=== PATIENT | female | born 1970 | race Caucasian/White ===

== ENCOUNTER 2016-08-04 23:25 | Inpatient (IN) | payer BC ==
[2016-08-05] MEDS ORDERED: NS 0.9% 1000 ML* 1,000 ML IV ONE (00:11)
[2016-08-05] MEDS ORDERED: Ondansetron INJ* 2 MG/ML VIAL IV ONE ×2 (00:11→03:07)
[2016-08-05] MEDS ORDERED: fentaNYL* 50 MCG/ML 2 ML VIAL (100 MCG VIAL) IV SLOW PU ONE ×3 (00:12→03:11)
[2016-08-05 00:50] LABS: Hematocrit 45 % (35-47); Hemoglobin 14.5 g/dl (12.0-16.0); Mean Corpuscular HGB Conc 32 g/dl (31-36); Mean Corpuscular Hemoglobin 26 pg (27-31); Mean Corpuscular Volume 80 fL (80-97); Mean Platelet Volume 7 um3 (7.4-10.4); Red Blood Count 5.64 10^6/ul (4.0-5.4); Red Cell Distribution Width 14 % (10.5-15); White Blood Count 14.4 10^3/ul (3.5-10.8)
[2016-08-05 01:07] LABS: Albumin 3.6 g/dL (3.2-5.2); C Reactive Protein 13.37 mg/L (< 5.00); Calcium 9.7 mg/dL (8.6-10.3); EGFR African American 148.6 (>60); EGFR Non-African American 115.5 (>60); Globulin 3.3 g/dL (2-4); Potassium 3.6 mmol/L (3.5-5.0); Total Bilirubin 0.4 mg/dL (0.2-1.0); Total Protein 6.9 g/dL (6.4-8.9)
[2016-08-05] MEDS ORDERED: Ondansetron INJ* 2 MG/ML VIAL ONE (03:10)
--- NOTE | 2016-08-05 03:25 | ED ---
Bhavin Peres Alok, scribed for Maddy Skinner MD on 08/04/16 at 2355 . Abdominal Pain/Female - HPI Summary HPI Summary: 46F presents to the ED with diffuse abd pain and diarrhea since 1800 this evening. Pt states she has been having this abd pain on and off for the last few weeks usually lasting about a day at a time, though not with as much severity as tonight. Pt describes her abd pain as a cramping. Pt states she has been having diarrhea at least once every hour this evening. Pt has been taking ibuprofen which usually alleviates her pain but was ineffective tonight. Pt denies fever. Pt denies recent antibiotic use. PMHx includes type II DM. Pt states her sugar levels have been normal. - History of Current Complaint Chief Complaint: EDAbdPain Stated Complaint: ABD PAIN Time Seen by Provider: 08/04/16 23:52 Hx Obtained From: Patient Onset/Duration: Lasting Weeks, Still Present Timing: Intermittent Episode Lasting Severity Initially: Moderate Severity Currently: Moderate Pain Intensity: 8 Pain Scale Used: 0-10 Numeric Location: Diffuse Character: Cramping Aggravating Factor(s): Nothing Alleviating Factor(s): Nothing Associated Signs and Symptoms: Positive: Diarrhea. Negative: Fever Allergies/Adverse Reactions: Allergies Allergy/AdvReac Type Severity Reaction Status Date / Time Acetaminophen [From Percocet] Allergy Itching Verified 08/04/16 23:28 Morphine Allergy Rash Verified 08/04/16 23:28 Oxycodone [From Percocet] Allergy Itching Verified 08/04/16 23:28 PMH/Surg Hx/FS Hx/Imm Hx Endocrine/Hematology History: Reports: Hx Diabetes - Cancer History Hx Chemotherapy: No Hx Radiation Therapy: No Infectious Disease History: No Infectious Disease History: Denies: Traveled Outside the [place] in Last 30 Days - Family History Known Family History: Positive: Other - Yes- Breast CA (sister) - Social History Occupation: Employed Full-time Lives: With Family Alcohol Use: None Hx Substance Use: No Hx Tobacco Use: No Smoking Status (MU): Never Smoked Tobacco Review of Systems Negative: Fever Positive: Abdominal Pain, Diarrhea All Other Systems Reviewed And Are Negative: Yes Physical Exam Triage Information Reviewed: Yes Vital Signs On Initial Exam: Initial Vitals Temp Pulse Resp BP Pulse Ox 97.4 F 100 18 154/87 100 08/04/16 23:28 08/04/16 23:28 08/04/16 23:28 08/04/16 23:28 08/04/16 23:28 Vital Signs Reviewed: Yes Appearance: Positive: Well-Appearing, No Pain Distress Skin: Positive: Warm, Skin Color Reflects Adequate Perfusion, Dry Eyes: Positive: EOMI, KLEBER ENT: Positive: Pharynx normal, TMs normal Neck: Positive: Supple, Nontender Respiratory/Lung Sounds: Positive: Clear to Auscultation, Breath Sounds Present. Negative: Rales, Rhonchi, Wheezes Cardiovascular: Positive: RRR, Other - no gallop. Negative: Murmur, Rub Abdomen Description: Positive: Soft, Other: - no rebound. Diffuse abd tenderness.. Negative: Distended, Guarding Bowel Sounds: Positive: Present Musculoskeletal: Positive: Strength/ROM Intact. Negative: Edema Left, Edema Right Neurological: Positive: Sensory/Motor Intact, Alert, Oriented to Person Place, Time, CN Intact II-III Psychiatric: Positive: Affect/Mood Appropriate Diagnostics - Vital Signs Vital Signs Temp Pulse Resp BP Pulse Ox 08/04/16 23:28 97.4 F 100 18 154/87 100 - Laboratory Lab Results: Lab Results 08/05/16 08/05/16 08/05/16 Range/Units 00:35 00:35 00:35 WBC 14.4 H (3.5-10.8) 10^3/ul RBC 5.64 H (4.0-5.4) 10^6/ul Hgb 14.5 (12.0-16.0) g/dl Hct 45 (35-47) % MCV 80 (80-97) fL MCH 26 L (27-31) pg MCHC 32 (31-36) g/dl RDW 14 (10.5-15) % Plt Count 380 (150-450) 10^3/ul MPV 7 L (7.4-10.4) um3 Neut % (Auto) 73.6 (38-83) % Lymph % (Auto) 18.4 L (25-47) % [place] % (Auto) 5.7 (1-9) % Eos % (Auto) 1.2 (0-6) % Baso % (Auto) 1.1 (0-2) % Absolute Neuts (auto) 10.6 H (1.5-7.7) 10^3/ul Absolute Lymphs (auto) 2.7 (1.0-4.8) 10^3/ul Absolute Monos (auto) 0.8 (0-0.8) 10^3/ul Absolute Eos (auto) 0.2 (0-0.6) 10^3/ul Absolute Basos (auto) 0.2 (0-0.2) 10^3/ul Absolute Nucleated RBC 0.01 10^3/ul Nucleated RBC % 0.1 Sodium 134 (133-145) mmol/L Potassium 3.6 (3.5-5.0) mmol/L Chloride 106 (101-111) mmol/L Carbon Dioxide 21 L (22-32) mmol/L Anion Gap 7 (2-11) mmol/L BUN 14 (6-24) mg/dL Creatinine 0.56 (0.51-0.95) mg/dL Est GFR ( Amer) 148.6 (>60) Est GFR (Non-Af Amer) 115.5 (>60) BUN/Creatinine Ratio 25.0 H (8-20) Glucose 334 H (70-100) mg/dL Lactic Acid 1.3 (0.5-2.0) mmol/L Calcium 9.7 (8.6-10.3) mg/dL Total Bilirubin 0.40 (0.2-1.0) mg/dL AST 12 L (13-39) U/L ALT 9 (7-52) U/L Alkaline Phosphatase 73 (34-104) U/L C-Reactive Protein 13.37 H (< 5.00) mg/L Total Protein 6.9 (6.4-8.9) g/dL Albumin 3.6 (3.2-5.2) g/dL Globulin 3.3 (2-4) g/dL Albumin/Globulin Ratio 1.1 (1-3) Lipase 28 (11.0-82.0) U/L Result Diagrams: 08/05/16 00:35 08/05/16 00:35 Lab Statement: Any lab studies that have been ordered have been reviewed, and results considered in the medical decision making process. Abdominal Pain Fem Course/Dx - Course Course Of Treatment: 46 yo female with diabetes who describes a few days of diffuse abd pain with nausea and profuse diarrhea, exam non focal, pain not well controlled in the ED and pt then vomited after getting 2 l of fluid and pain meds x2 decision was made to admit pt. Case discussed with Dr. Villarreal - Diagnoses Provider Diagnoses: Abdominal pain Discharge - Discharge Plan Condition: Stable Disposition: HOME The documentation as recorded by the Bhavin kwong Alok accurately reflects the service I personally performed and the decisions made by me, Maddy Skinner MD.
[2016-08-05] MEDS ORDERED: Al Hydrox/Mg Hydrox/Simet LIQ* 30 ML UDC PO PRN (03:31)
[2016-08-05] MEDS ORDERED: Dextrose 50% Syringe 50 ML* 25 GM/50 ML SYRINGE IV PUSH PRN ×2 (03:34→03:35)
[2016-08-05] MEDS ORDERED: PROCHLORPERAZINE INJ 5 MG/ML 2 ML VIAL IV PRN (03:34)
[2016-08-05] MEDS ORDERED: Insulin LISPRO* 1 UNITS UNIT SUBCUT ONE (03:35)
[2016-08-05 03:40] LABS: Urine Bacteria Absent (Absent); Urine Bilirubin Negative (Negative); Urine Glucose 3+(>=500 mg/dL) (Negative); Urine Nitrite Negative (Negative)
[2016-08-05] MEDS: NS 0.9% w/ 20 Meq KCL 1000 ML* 1,000 ML IV SCH ×3 (03:49→23:47)
[2016-08-05] MEDS: Heparin VIAL(*) 5000 UNITS/ML VIAL (FIVE THOUSAND) SUBCUT SCH ×3 (04:30→20:56)
[2016-08-05] MEDS: Acetaminophen TAB* 325 MG PO PRN ×5 (04:30→22:22)
[2016-08-05] MEDS ORDERED: Iodixanol* (CONTRAST) 320 MG/ML 100 ML SDV IV ONE (05:02)
--- NOTE | 2016-08-05 06:13 | HP ---
CC: María Perkins MD * HISTORY AND PHYSICAL: DATE OF ADMISSION: 08/05/16 TIME OF EVALUATION: 0300. PRIMARY CARE PHYSICIAN: María Perkins MD CHIEF COMPLAINT: Nausea, vomiting, diarrhea, and abdominal pain. HISTORY OF PRESENT ILLNESS: This is a 46-year-old female with a past medical history of diabetes, who presents to the emergency room with persistent nausea, vomiting, and diarrhea. The patient states she has had abdominal pain off and on for the past few weeks that last for about a day and then resolves on its own , waxes and wanes. It has no pattern to it. It does not seem to be associated with appetite or food. She does admit to a 10-pound weight loss over the past month. She has had nausea over the past month, but this evening was when the vomiting began. She had diarrhea last week that resolved and then again the diarrhea returned. She has had chills today. She feels slightly short of breath. No chest pain or rash. No URI illness. No recent travel. No recent antibiotic use. Otherwise, remainder of the review of systems is negative. In the emergency room, the patient had labs and had persisted vomiting despite antiemetics and was referred to the hospitalist service for further evaluation. PAST MEDICAL HISTORY: 1. Diabetes. 2. Vitamin D deficiency. MEDICATIONS: 1. Januvia. 2. Vitamin D. ALLERGIES: TYLENOL, MORPHINE, OXYCODONE. FAMILY HISTORY: No history of GI illness in her family. No history of IBD or colon cancer. SOCIAL HISTORY: The patient lives at home with her and 2 small children. No history of smoking, alcohol, or illicit drug use. Her healthcare proxy is her . She works as a dental social science research assistant. CODE STATUS: Full code. REVIEW OF SYSTEMS: A 12-point review of systems was reviewed and was as mentioned in the HPI. PHYSICAL EXAMINATION GENERAL: In no acute distress, resting comfortably. VITAL SIGNS: Temp is 97.4, pulse rate 66, respiratory rate 18, oxygen saturation 94% on room air, and blood pressure 129/81. HEENT: Pupils equal and reactive to light and anicteric. Head normocephalic. Oropharynx: Mucous membranes are dry. No erythema or exudate. NECK: Supple. No lymphadenopathy. RESPIRATORY: Clear to auscultation. No wheezes, rhonchi, or rales. CARDIAC: Regular rate and rhythm. No murmurs, rubs, or gallops. ABDOMEN: Hyperactive bowel sounds. Soft, mild distention, and diffuse tenderness. EXTREMITIES: No clubbing, cyanosis, or edema. +1 DPs. NEUROLOGIC: Alert and oriented x3. No focal neurologic deficits. LABORATORY DATA: White count 14.4, hemoglobin 14.5, hematocrit 45, platelets 380. Sodium 134, potassium 3.6, chloride 106, bicarb 21, BUN 14, creatinine 0.56 , glucose 334. Lactic acid 1.3. CRP is 13. Lipase is 28. AST 12, ALT 9, total bili is 0.4. ASSESSMENT AND PLAN: This is a 46-year-old female with a past medical history of diabetes, who presents with worsening abdominal pain with nausea, vomiting, and diarrhea. Nausea, vomiting, diarrhea, and abdominal pain. Assessment: It is concerning that this has been going on for the past month off and on with a 10-pound weight loss. I am concerned for underlying inflammatory bowel disease. Plan: We will admit her for observation for IV fluids, antiemetics. We will get a CAT scan of her abdomen and pelvis to rule out any other underlying etiology. Follow up on the stool culture that was obtained in the emergency room. Depending on her results of further workup, consider GI evaluation. CHRONIC MEDICAL PROBLEMS: 1. Diabetes. We will give her 6 units of lispro in the ER and place her on lispro sliding scale. Will check HgbA1c. 2. FEN. Place on a regular diet. 3. DVT prophylaxis. The patient scores moderate risk. We will place her on heparin subcu t.i.d. 4. Code status. Full code. PATIENT TIME: Greater than 50 minutes was spent doing the history and physical , more than half the time was spent in direct patient contact. [id number]/CPS #: [id number]
[2016-08-05 06:56] LABS: Erythrocyte Sed Rate 10 mm/Hr (0-14)
[2016-08-05] MEDS: Insulin LISPRO* 1 UNITS UNIT SUBCUT SCH ×3 (07:42→17:03)
[2016-08-05] MEDS ORDERED: HYDROmorphone* 1 MG/ML 1 ML SYR IV SLOW PU PRN (08:13)
--- NOTE | 2016-08-05 08:37 | RAD ---
Indication: Abdominal pain. Contrast: Administered 141.0 ml of VISAPAQUE 320 mgi/ml CT of the abdomen and pelvis was performed after oral and IV contrast administration. Coronal and sagittal reconstructed images were obtained. The lung bases demonstrate no pleural fluid, nodules or masses. Heart is of normal size without evidence pericardial effusion. Liver is normal in size. It is diffusely decreased in density consistent with hepatic steatosis. There is a low density lesion in the posterior segment of the right lobe of liver just adjacent to the adrenal gland. This may have been present previously and measures 11 mm. This may represent a cyst, hemangioma or focal fatty infiltration. Additional lesion is noted in the inferior right lobe of liver measuring up to 9 mm. Correlation with ultrasound may BE helpful. No intrahepatic duct dilatation is noted. The spleen is normal in size. The pancreas demonstrates no evidence of pancreatic duct dilatation. Low density lesion is noted in the tail of the pancreas measuring 5 mm. This was present previously on 2002 and may be minimally larger. Common duct is not dilated. No adrenal masses are noted. The kidneys demonstrate symmetric nephrograms. The spleen is normal in size. Aorta and inferior vena cava are unremarkable. The stomach is dilated and filled with contrast. There are dilated loops of small bowel noted. There is focal wall thickening of the terminal ileum and base of the cecum. This may represent inflammatory bowel disease from Crohn's disease. Alternatively underlying neoplasm is not totally excluded. A small amount of ascites is noted. The uterus is otherwise unremarkable. No hernias are noted. IMPRESSION: THERE IS WALL THICKENING OF THE TERMINAL ILEUM EXTENDING INTO THE BASE OF THE CECUM. THIS IS SUSPICIOUS FOR INFLAMMATORY BOWEL DISEASE. SMALL AMOUNT OF ASCITES IS NOTED. FINDINGS ARE SECONDARY TO CROHN'S DISEASE ALTHOUGH UNDERLYING MASS IS NOT TOTALLY INCLUDED AND CLINICAL CORRELATION IS SUGGESTED. THERE IS SMALL BOWEL OBSTRUCTION PRESENT. LOW DENSITY LESIONS ARE NOTED IN THE LIVER WHICH MAY REPRESENT HEMANGIOMAS OR FOCAL FATTY INFILTRATION. NONEMERGENT MRI OR ULTRASOUND COULD BE PERFORMED TO FURTHER CHARACTERIZE THESE LESIONS. THERE IS A BACKGROUND OF HEPATIC STEATOSIS. LOW DENSITY LESION IN THE TAIL OF THE PANCREAS WAS LIKELY PRESENT ON PREVIOUS EXAM OF 2002.
[2016-08-05 09:03] LABS: Hematocrit 42 % (35-47); Hemoglobin 13.6 g/dl (12.0-16.0); Mean Corpuscular HGB Conc 32 g/dl (31-36); Mean Corpuscular Hemoglobin 26 pg (27-31); Mean Corpuscular Volume 81 fL (80-97); Mean Platelet Volume 8 um3 (7.4-10.4); Red Blood Count 5.24 10^6/ul (4.0-5.4); Red Cell Distribution Width 14 % (10.5-15); White Blood Count 10.6 10^3/ul (3.5-10.8)
[2016-08-05 09:23] LABS: Albumin 3.1 g/dL (3.2-5.2); BUN/Creatinine Ratio 24.6 (8-20); Calcium 8.6 mg/dL (8.6-10.3); EGFR African American 134.6 (>60); EGFR Non-African American 104.7 (>60); Globulin 2.5 g/dL (2-4); Potassium 3.9 mmol/L (3.5-5.0); Total Bilirubin 0.5 mg/dL (0.2-1.0); Total Protein 5.6 g/dL (6.4-8.9)
--- NOTE | 2016-08-05 10:13 | PN ---
Progress Note - Progress Note SOAP: Subjective: [This is a 46 yo white woman with PMH of DM and bilateral salpingoophrectomy that was admitted this morning for nausea, vomiting, diarrhea and diffuse abdominal pain. She states that the pain will wax and wane and is not associated with food, with 10 pound wt. loss over past month. She denies vomiting since last evening and has not felt nauseous since admission. Denies any changes in diet. Diarrhea is every few hours which she describes as loose and watery. Denies any hematochezia or melena. She denies travel or recent abx use. Stool culture is negative for D-Diff and WBC mildly elevated at 14.4. ] Active Medications Acetaminophen (Tylenol Tab*) 650 mg PO Q4H PRN PRN Reason: FEVER/PAIN Last Admin: 08/05/16 08:24 Dose: 650 mg Al Hydrox/Mg Hydrox/Simethicone (Maalox Plus*) 30 ml PO Q6H PRN PRN Reason: INDIGESTION Dextrose (D50w Syringe 50 Ml*) 12.5 gm IV PUSH .FOR FS < 60 - SS PRN PRN Reason: FS < 60 Heparin Sodium (Porcine) (Heparin Vial(*)) 5,000 units SUBCUT Q8HR [facility] Last Admin: 08/05/16 04:30 Dose: 5,000 units Hydromorphone HCl (Dilaudid Iv*) 0.5 mg IV SLOW PU Q4H PRN PRN Reason: PAIN Potassium Chloride/Sodium Chloride (Ns 0.9% W/ 20 Meq Kcl 1000 Ml*) 1,000 mls @ 125 mls/hr IV PER RATE [facility] Last Admin: 08/05/16 03:49 Dose: 125 mls/hr Insulin Human Lispro (Humalog*) 0 units SUBCUT AC [facility] PRN Reason: Protocol Last Admin: 08/05/16 07:42 Dose: Not Given Ondansetron HCl (Zofran Inj*) 4 mg IV Q4H PRN PRN Reason: NAUSEA/VOMITING Prochlorperazine Edisylate (Compazine Inj*) 5 mg IV Q6H PRN PRN Reason: NAUSEA/VOMITING Sitagliptin Phosphate (Januvia (Nf)) 100 mg PO QPM [facility] Tramadol HCl (Ultram*) 50 mg PO Q6H PRN PRN Reason: PAIN Home medications: Januvia 100 mg PO QHS for diabetes Objective: [ Vital Signs: Temp Pulse Resp BP Pulse Ox 97.7 F 82 16 114/67 99 08/05/16 07:21 08/05/16 07:21 08/05/16 07:21 08/05/16 07:21 08/05/16 07:21 General: This is an overweight, pleasant, white female laying sideways on hospital bed in [facility]. Lungs: Chest is symmetric and lungs are clear to auscultation. Heart: RRR. No murmurs, rubs, or gallops. Abdomen: Hyperactive bowel sounds. Abdomen is mildly distended but soft to palpation, diffuse abdominal pain to palpation more so localized to epigastric region. Extremities: No edema and distal pulses are intact. Lab data: WBC 10.6 10^3/ul (3.5-10.8) 08/05/16 05:53 RBC 5.24 10^6/ul (4.0-5.4) 08/05/16 05:53 Hgb 13.6 g/dl (12.0-16.0) 08/05/16 05:53 Hct 42 % (35-47) 08/05/16 05:53 MCV 81 fL (80-97) 08/05/16 05:53 MCH 26 pg (27-31) L 08/05/16 05:53 MCHC 32 g/dl (31-36) 08/05/16 05:53 RDW 14 % (10.5-15) 08/05/16 05:53 Plt Count 387 10^3/ul (150-450) 08/05/16 05:53 MPV 8 um3 (7.4-10.4) 08/05/16 05:53 Neut % (Auto) 73.6 % (38-83) 08/05/16 00:35 Lymph % (Auto) 18.4 % (25-47) L 08/05/16 00:35 [place] % (Auto) 5.7 % (1-9) 08/05/16 00:35 Eos % (Auto) 1.2 % (0-6) 08/05/16 00:35 Baso % (Auto) 1.1 % (0-2) 08/05/16 00:35 Absolute Neuts (auto) 10.6 10^3/ul (1.5-7.7) H 08/05/16 00:35 Absolute Lymphs (auto) 2.7 10^3/ul (1.0-4.8) 08/05/16 00:35 Absolute Monos (auto) 0.8 10^3/ul (0-0.8) 08/05/16 00:35 Absolute Eos (auto) 0.2 10^3/ul (0-0.6) 08/05/16 00:35 Absolute Basos (auto) 0.2 10^3/ul (0-0.2) 08/05/16 00:35 Absolute Nucleated RBC 0.01 10^3/ul 08/05/16 00:35 Nucleated RBC % 0.1 08/05/16 00:35 ESR 10 mm/Hr (0-14) 08/05/16 05:53 Sodium 135 mmol/L (133-145) 08/05/16 05:51 Potassium 3.9 mmol/L (3.5-5.0) 08/05/16 05:51 Chloride 107 mmol/L (101-111) 08/05/16 05:51 Carbon Dioxide 20 mmol/L (22-32) L 08/05/16 05:51 Anion Gap 8 mmol/L (2-11) 08/05/16 05:51 BUN 15 mg/dL (6-24) 08/05/16 05:51 Creatinine 0.61 mg/dL (0.51-0.95) 08/05/16 05:51 Est GFR ( Amer) 134.6 (>60) 08/05/16 05:51 Est GFR (Non-Af Amer) 104.7 (>60) 08/05/16 05:51 BUN/Creatinine Ratio 24.6 (8-20) H 08/05/16 05:51 Glucose 378 mg/dL (70-100) H 08/05/16 05:51 POC Glucose (mg/dL) 325 mg/dL (74-106) H 08/05/16 07:27 Lactic Acid 1.3 mmol/L (0.5-2.0) 08/05/16 00:35 Calcium 8.6 mg/dL (8.6-10.3) 08/05/16 05:51 Total Bilirubin 0.50 mg/dL (0.2-1.0) 08/05/16 05:51 AST 11 U/L (13-39) L 08/05/16 05:51 ALT 9 U/L (7-52) 08/05/16 05:51 Alkaline Phosphatase 64 U/L (34-104) 08/05/16 05:51 C-Reactive Protein 13.37 mg/L (< 5.00) H 08/05/16 00:35 Total Protein 5.6 g/dL (6.4-8.9) L 08/05/16 05:51 Albumin 3.1 g/dL (3.2-5.2) L 08/05/16 05:51 Globulin 2.5 g/dL (2-4) 08/05/16 05:51 Albumin/Globulin Ratio 1.2 (1-3) 08/05/16 05:51 Lipase 28 U/L (11.0-82.0) 08/05/16 00:35 Beta HCG, Quant 2.29 mIU/mL 08/05/16 00:35 Urine Color Iva 08/05/16 03:10 Urine Appearance Cloudy 08/05/16 03:10 Urine pH 5.0 (5-9) 08/05/16 03:10 Ur Specific Jones 1.040 (1.010-1.030) H 08/05/16 03:10 Urine Protein 1+(30 mg/dl) (Negative) H 08/05/16 03:10 Urine Ketones Trace (Negative) H 08/05/16 03:10 Urine Blood Negative (Negative) 08/05/16 03:10 Urine Nitrate Negative (Negative) 08/05/16 03:10 Urine Bilirubin Negative (Negative) 08/05/16 03:10 Urine Urobilinogen Negative (Negative) 08/05/16 03:10 Ur Leukocyte Esterase Negative (Negative) 08/05/16 03:10 Urine WBC (Auto) Absent (Absent) 08/05/16 03:10 Urine RBC (Auto) 2+(6-10/hpf) (Absent) H 08/05/16 03:10 Ur Squamous Epith Cells Present (Absent) H 08/05/16 03:10 Urine Bacteria Absent (Absent) 08/05/16 03:10 Urine Glucose 3+(>=500 mg/dl) (Negative) H 08/05/16 03:10 CT abdomen and pelvis: Bowel wall thickening of terminal ileum, cecum, and sigmoid colon which is highly suspicious for Crohn's disease. Stool culture: Negative for C.diff] Assessment/Plan: [1) Abdominal pain/sx: Given patient's history and CT results diagnosis highly suspicious for Crohn's disease and patient will be treated for active disease with Prednisone 40 mg PO until symptoms resolve and patient begins to regain weight. She will be tapered off the dose via outpatient with GI referral. GI consult made for further treatments and patient will be scheduled for outpatient colonscopy to confirm diagnosis. Patient is on observation status and plan for patient discharge today. 2) DM: Patient states diabetes is not well managed and she states she is only on Januvia at this time. Further inspection needs to be done in managing her diabetes better. Due to initiation of steroid patient will be placed on Lantus 10 units and then cover with SS Humalog. 3) DVT Prophylaxis: Continue with Heparin Sub Q. 4) Code Status: Full code. ]
[2016-08-05] MEDS: traMADol TAB* 50 MG PO PRN ×2 (11:36→19:32)
--- NOTE | 2016-08-05 12:20 | PN ---
Subjective Date of Service: 08/05/16 Interval History: This is a 46 yo female with poorly controlled DM who presented with c/o abd pain and diarrhea. Symptoms have been intermittent for a few weeks and associated with 10 pound weight loss. No blood noted in the diarrhea. No assoc fever/chills. Ct suggests bowel wall thickening of the terminal ileum and cecum. This am, her abd pain is somewhat improved, still having frequent non-bloody diarrhea. Some nausea, no vomiting. Objective Active Medications: Acetaminophen (Tylenol Tab*) 650 mg PO Q4H PRN PRN Reason: FEVER/PAIN Last Admin: 08/05/16 08:24 Dose: 650 mg Al Hydrox/Mg Hydrox/Simethicone (Maalox Plus*) 30 ml PO Q6H PRN PRN Reason: INDIGESTION Dextrose (D50w Syringe 50 Ml*) 12.5 gm IV PUSH .FOR FS < 60 - SS PRN PRN Reason: FS < 60 Heparin Sodium (Porcine) (Heparin Vial(*)) 5,000 units SUBCUT Q8HR [facility] Last Admin: 08/05/16 04:30 Dose: 5,000 units Hydromorphone HCl (Dilaudid Iv*) 0.5 mg IV SLOW PU Q4H PRN PRN Reason: PAIN Potassium Chloride/Sodium Chloride (Ns 0.9% W/ 20 Meq Kcl 1000 Ml*) 1,000 mls @ 125 mls/hr IV PER RATE [facility] Last Admin: 08/05/16 03:49 Dose: 125 mls/hr Insulin Human Lispro (Humalog*) 0 units SUBCUT AC [facility] PRN Reason: Protocol Last Admin: 08/05/16 11:43 Dose: Not Given Ondansetron HCl (Zofran Inj*) 4 mg IV Q4H PRN PRN Reason: NAUSEA/VOMITING Polyethylene Glycol/Electrolytes (Golytely*) 2,777 ml PO ONCE ONE Stop: 08/05/16 17:01 Polyethylene Glycol/Electrolytes (Golytely*) 1,333 ml PO ONCE ONE Stop: 08/06/16 08:01 Prochlorperazine Edisylate (Compazine Inj*) 5 mg IV Q6H PRN PRN Reason: NAUSEA/VOMITING Sitagliptin Phosphate (Januvia (Nf)) 100 mg PO QPM [facility] Tramadol HCl (Ultram*) 50 mg PO Q6H PRN PRN Reason: PAIN Last Admin: 08/05/16 11:36 Dose: 50 mg Vital Signs: Temp Pulse Resp BP Pulse Ox 97.7 F 82 16 114/67 99 08/05/16 07:21 08/05/16 07:21 08/05/16 11:36 08/05/16 07:21 08/05/16 07:21 Oxygen Devices in Use Now: None Appearance: Mildly ill appearing middle aged female in NAD Respiratory: Symmetrical Chest Expansion and Respiratory Effort, Clear to Auscultation Cardiovascular: NL Sounds; No Murmurs; No JVD, RRR Abdominal: - - slightly distended, BS present, diffuse abd TTP Extremities: No Edema Skin: No Rash or Ulcers Neurological: Alert and Oriented x 3 Result Diagrams: 08/05/16 05:53 08/05/16 05:51 Additional Lab and Data: . Diagnostic Imaging: CT abd/pelvis - bowel wall thickening of the terminal ileum and cecum, liver lesions that can be further defined by US or MRI Assess/Plan/Problems-Billing Assessment: - Patient Problems (1) Abdominal pain Comment: With freq diarrhea and thickening of terminal ileum and cecum, potentially suggestive of Crohn's Appreciate GI consult with plans for colonoscopy tomorrow Could consider empiric steroid therapy at the risk of inducing severe hyperglycemia, symptoms appear tolerable at this time, so will defer to GI for treatment recommendations (2) Diabetes Comment: Poorly controlled HgbA1c 12.2% Did not tolerate Metformin as outpt and has been resistent to insulin therapy Refusing insulin this am, but now willing (3) Full code status (4) DVT prophylaxis Comment: SQ Heparin, hold this evening for pending colonoscopy that will likely require biopsy Status and Disposition: Observation. Pending colonoscopy
--- NOTE | 2016-08-05 13:29 | CONS ---
CC: Dr. Perkins * CONSULTATION REPORT: DATE OF CONSULT: 08/05/16 REQUESTING PHYSICIAN: Dr. Villarreal. NARRATIVE: Ms. Santo is a pleasant 46-year-old female who states that she developed symptoms a few weeks ago. She has had symptoms of intermittent diarrhea with abdominal pain. The pain could be crampy in nature, located throughout the entirety of her abdomen. She denies any blood in the stool. She does have some days where she does not have any symptoms. No mucus in the stool. No nausea, no vomiting, no fevers. She came to the hospital because the pain had worsened over the past few weeks. She denies any history of antibiotics in the past 6 months. No recent medication changes, except for Januvia. She had been on metformin, but was switched to Januvia. This occurred , the patient believes, after her symptoms began. She has never had symptoms like this before. No family history of inflammatory bowel disease. No oral ulcers. No eye inflammation. She does have some joint aches and pain. PAST MEDICAL HISTORY: Significant for diabetes. MEDICATIONS: Include: 1. Januvia. 2. Vitamin D. ALLERGIES: TYLENOL, MORPHINE, OXYCODONE. FAMILY HISTORY: Significant for nothing. No IBD in the family. SOCIAL HISTORY: No tobacco, alcohol or IV drugs. REVIEW OF SYSTEMS: Twelve systems were reviewed, other than that mentioned in the HPI were unremarkable. PHYSICAL EXAM: Temperature is 97.7, blood pressure is 114/67, O2 sat is 99%, pulse is 82, respiratory rate of 16. General: Well-appearing female, in no apparent distress. Alert, oriented, pleasant, and fluent. HEENT: Mucous membranes are moist, without lesions, ulcers or exudate. No oral ulcers were seen. Neck is supple. Trachea is midline. No lymphadenopathy was palpated. Heart: Regular rate and rhythm. Lungs: Clear to auscultation bilaterally. No wheezes, rales or rhonchi. Abdomen: Obese, positive bowel sounds, soft, diffusely tender. No rebound, no guarding. No masses were felt. Skin: Warm and dry. Musculoskeletal: No CVA or spinal tenderness to palpation. DIAGNOSTIC STUDIES/LAB DATA: Of note, her white count has fallen from 14.4 to 10.6. Her sed rate is 10. Her glucose is 378. AST is 11, albumin is 3.1. She had a CT abdomen and pelvis which revealed terminal ileitis and cecal inflammation, question of Crohn's and likely hemangiomas in the liver. ASSESSMENT AND PLAN: This is a pleasant 46-year-old female with diarrhea and abdominal pain, who was admitted to the hospital for the above-mentioned symptoms. We had a long discussion regarding inflammatory bowel disease, namely , Crohn's and/or an infectious etiology. I would like to perform a colonoscopy. I will make arrangements for it tomorrow to further visualize the terminal ileum and the cecum. The procedure was discussed in detail with the patient. We will rule out Crohn's versus infection. [id number] #: [id number] MTDD
[2016-08-05] MEDS ORDERED: Ibuprofen TAB* 600 MG PO PRN (16:06)
[2016-08-05] MEDS ORDERED: diPHENhydraMINE PO* 50 MG PO PRN (16:07)
[2016-08-05] MEDS ORDERED: PEG 3000 GI LAVAGE* 1 GALLON PO ONE (17:00)
[2016-08-05] MEDS: CMC: SitaGLIPtin (NF) 100 MG TAB PO SCH (17:52)
--- NOTE | 2016-08-05 18:01 | RAD ---
INDICATION: Abdominal pain. Hepatic steatosis. Possible hepatic hemangiomas COMPARISON: CT August 05, 2016 TECHNIQUE: Longitudinal and transverse scans of the right upper quadrant were obtained. Doppler interrogation of the hepatic and portal venous system was performed. FINDINGS: Liver: There is hepatomegaly with hepatic steatosis. There are no masses . The tiny low density lesions identified on the CT are not confirmed on sonography. The liver measures 21.6 cm in cephalocaudal dimension. Vessels: There is normal hepatic and portal venous flow. Bile ducts: There is no evidence of intrahepatic or extrahepatic ductal dilatation. The common duct measures 14 cm. Gallbladder: The sonographic appearance of the gallbladder is normal. There is no evidence of cholelithiasis, thickening of the gallbladder wall, or pericholecystic fluid. Pancreas: Not seen due to bowel gas Right kidney: The right kidney is normal in size and echogenicity. There are no masses or calculi. There is no evidence of hydronephrosis. The right kidney measures 13.5 x 5.9 x 5.7 cm. IVC and aorta: The aorta and superior vena cava appear normal. Fluid: There is no ascites. Other: None. IMPRESSION: HEPATOMEGALY WITH HEPATIC STEATOSIS. THE LIVER LESIONS IDENTIFIED ON CT ARE NOT SEEN SONOGRAPHICALLY LIKELY RELATED TO TECHNICAL FACTORS AND THEIR SMALL SIZE. FURTHER CHARACTERIZATION WOULD LIKELY REQUIRE MR IMAGING.
[2016-08-05] MEDS: Ondansetron INJ* 2 MG/ML VIAL IV PRN (21:03)
[2016-08-06] MEDS ORDERED: PEG 3000 GI LAVAGE* 1 GALLON PO ONE (08:00)
[2016-08-06] MEDS: NS 0.9% w/ 20 Meq KCL 1000 ML* 1,000 ML IV SCH ×2 (08:41→18:33)
[2016-08-06] MEDS: Insulin LISPRO* 1 UNITS UNIT SUBCUT SCH ×3 (08:42→15:39)
[2016-08-06] MEDS ORDERED: Meperidine SYRINGE* 50 MG/ML ONE (15:02)
[2016-08-06] MEDS ORDERED: Midazolam* 1 MG/ML 10 ML VIAL (10 MG) ONE (15:02)
--- NOTE | 2016-08-06 17:46 | PN ---
Subjective Date of Service: 08/06/16 Interval History: Patient had difficulty with prep overnight and had multiple vomiting episodes. Abd pain improved though and she was able to tolerate some of the prep earlier today with antiemetics. Denies CP, SOB. Objective Active Medications: Acetaminophen (Tylenol Tab*) 650 mg PO Q4H PRN PRN Reason: FEVER/PAIN Last Admin: 08/05/16 22:22 Dose: 650 mg Al Hydrox/Mg Hydrox/Simethicone (Maalox Plus*) 30 ml PO Q6H PRN PRN Reason: INDIGESTION Dextrose (D50w Syringe 50 Ml*) 12.5 gm IV PUSH .FOR FS < 60 - SS PRN PRN Reason: FS < 60 Diphenhydramine HCl (Benadryl Po*) 50 mg PO Q6H PRN PRN Reason: ITCHING Hydromorphone HCl (Dilaudid Iv*) 0.5 mg IV SLOW PU Q4H PRN PRN Reason: PAIN Potassium Chloride/Sodium Chloride (Ns 0.9% W/ 20 Meq Kcl 1000 Ml*) 1,000 mls @ 125 mls/hr IV PER RATE [facility] Last Admin: 08/06/16 08:41 Dose: 125 mls/hr Ibuprofen (Motrin Tab*) 600 mg PO Q8H PRN PRN Reason: PAIN Last Admin: 08/05/16 16:20 Dose: 600 mg Insulin Human Lispro (Humalog*) 0 units SUBCUT AC [facility] PRN Reason: Protocol Last Admin: 08/06/16 15:39 Dose: Not Given Ondansetron HCl (Zofran Inj*) 4 mg IV Q4H PRN PRN Reason: NAUSEA/VOMITING Last Admin: 08/05/16 21:03 Dose: 4 mg Prochlorperazine Edisylate (Compazine Inj*) 5 mg IV Q6H PRN PRN Reason: NAUSEA/VOMITING Last Admin: 08/06/16 08:50 Dose: 5 mg Sitagliptin Phosphate (Januvia (Nf)) 100 mg PO QPM [facility] Last Admin: 08/05/16 17:52 Dose: 100 mg Tramadol HCl (Ultram*) 50 mg PO Q6H PRN PRN Reason: PAIN Last Admin: 08/05/16 19:32 Dose: 50 mg Vital Signs: Temp Pulse Resp BP Pulse Ox 98.8 F 86 17 127/72 98 08/06/16 07:42 08/06/16 07:42 08/06/16 07:42 08/06/16 07:42 08/06/16 07:42 Oxygen Devices in Use Now: None Appearance: Well appearing middle aged female in NAD Respiratory: Symmetrical Chest Expansion and Respiratory Effort, Clear to Auscultation Cardiovascular: NL Sounds; No Murmurs; No JVD, RRR Abdominal: - - mildly distended, mild TTP, BS present Extremities: No Edema Skin: No Rash or Ulcers Neurological: Alert and Oriented x 3 Result Diagrams: 08/05/16 05:53 08/05/16 05:51 Additional Lab and Data: . Diagnostic Imaging: CT abd/pelvis - bowel wall thickening of the terminal ileum and cecum, liver lesions that can be further defined by US or MRI Colonoscopy - 2 polyps identified, large ileocecal mass identified without obstruction Assess/Plan/Problems-Billing Assessment: This is a 46 yo female with poorly controlled DM admitted with abd pain and diarrhea. Area of bowel thickening identified on CT. - Patient Problems (1) Colonic mass Comment: Large mass identified in the ileocecal region on colonoscopy which is concerning for malignancy Surgery consultation is pending for resection Pathology pending Liver lesions noted on CT were not identified on US, will evaluate further with MRI Assoc abd pain has improved (2) Diabetes Comment: Poorly controlled HgbA1c 12.2% Did not tolerate Metformin as outpt and has been resistent to insulin therapy Manage with SS Humalog and start 10U Lantus at this time (3) Full code status (4) DVT prophylaxis Comment: SCDs, cont to hold heparin with possible pending colon resection Status and Disposition: Transition to inpatient. Pending surg consultation
[2016-08-06] MEDS: CMC: SitaGLIPtin (NF) 100 MG TAB PO SCH (18:07)
--- NOTE | 2016-08-06 18:17 | PN ---
Progress Note - Progress Note SOAP: Subjective: [This is a 46 yo white femalewith PMH of poorly controlled DM that was admitted yesterday for nausea, vomiting, diarrhea, and diffuse abdominal pain with associated 10 pound weight loss in past month Patient was prepped and underwent colonscopy today for what was originally thought to be of Crohns pathogenesis. Scope was pushed to later in the day with anti-emetics to ensure more adequate time to prep due to vomiting the prep the night before. ] Objective: Vital Signs Temp Pulse Resp BP Pulse Ox 98.2 F 94 20 134/75 94 08/06/16 17:37 08/06/16 17:37 08/06/16 17:37 08/06/16 17:37 08/06/16 17:37 General: Patient is a obese white female laying in hospital bed in [facility]. Lungs: Clear to auscultation across all gomez. Heart: RRR no murmurs, rubs, or gallops. Abdomen: On inspection, abdomen is obese with areas of striation. Bowel sounds are hyperactive in all four quadrants. Patient is tender to palpation in left upper quadrant but otherwise abdomen soft and nontender. Extremities: Distal pulses are intact and extremities are without edema. ] Assessment/Plan: 1) Ileocecal mass: Colonoscopy results from Dr. Messina yields a mass in the Ileocecal region and two polyps: one in the hepatic flexure and one in the rectum. Polyps were snared and biopsy was taken of mass.Currently awaiting biopsy results from colonoscopy but current plan is for patient to undergo surgery, likely in two days, for resection of mass with lymph node dissection. Surgical consult has been made. Definitive surgical time pends patient decision to undergo surgery or wait to prepare for surgery after a discharge home and schedule it for a later date. Patient currently is waiting to discuss it with her . MRI of abdomen with contrast has been order to check for metastasis , in particular in the liver where lesions were identified that were too small to see on ultrasound. 2) Diabetes, uncontrolled: Continue with both long acting Lantus and SS Humalog insulins and continue Januvia. Most recent hemoglobin A1C on 08/05/16 was 12.2. 3) DVT Prophylaxis: Hold this evening as patient requires surgical intervention. 4) Code Status: Full Code
[2016-08-06] MEDS: Insulin GLARGINE(*) 1 UNITS UNIT SUBCUT SCH (20:59)
[2016-08-07] MEDS: NS 0.9% w/ 20 Meq KCL 1000 ML* 1,000 ML IV SCH ×3 (03:25→23:51)
[2016-08-07 04:48] LABS: Hematocrit 39 % (35-47); Hemoglobin 12.3 g/dl (12.0-16.0); Mean Corpuscular HGB Conc 32 g/dl (31-36); Mean Corpuscular Hemoglobin 26 pg (27-31); Mean Corpuscular Volume 81 fL (80-97); Mean Platelet Volume 8 um3 (7.4-10.4); Red Blood Count 4.74 10^6/ul (4.0-5.4); Red Cell Distribution Width 14 % (10.5-15); White Blood Count 7.2 10^3/ul (3.5-10.8)
[2016-08-07 05:03] LABS: BUN/Creatinine Ratio 10.5 (8-20); Calcium 8.1 mg/dL (8.6-10.3); EGFR African American 145.6 (>60); EGFR Non-African American 113.2 (>60); Potassium 3.4 mmol/L (3.5-5.0)
--- NOTE | 2016-08-07 08:04 | PRO ---
DATE: 08/06/16 - ROOM #[id number] REFERRING PHYSICIAN: María Perkins* PROCEDURE: Colonoscopy to ileocecal area with biopsy of mass and removal of polyps at splenic flexure and rectum at 5 cm. INDICATION: This 46-year-old woman has had abdominal pain episodes lasting a day or two, first 4 months ago, then 2 months ago, and then increasingly over the last month. Her stools have been a little looser. She has lost 10 pounds. She had previously had some loose stools with metformin and was changed to Januvia. 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 There is no family history of colon cancer or inflammatory bowel disease. Informed consent was obtained. ENDOSCOPIST: Dr Messina MEDICATION: Midazolam 10, meperidine 50. FINDINGS: She is a middle-aged woman, minimally overweight, in no overt distress. Her abdomen is soft and nontender. Perianal inspection and rectal are normal. Initial views show a polyp in the rectum at about 5 cm. During the withdrawal phase, it was removed with snare cautery and retrieved in the scope tip. The initial insertion through the sigmoid, descending, and transverse was readily obtained. The stiffener was used and the curve made around to the right colon. A large fungating mass filled the lumen. It was covered with necrotic debris, but on the edges, especially towards the left and superior portion of the visual field, typical abnormal mucosa suggestive of a tumor was seen. This area was biopsied repeatedly 7 to 8 times. The lumen was basically completely occupied. On slow withdrawal, a small polyp was removed with non-electrified snare technique, assisted by a couple of biopsies near the splenic flexure. It appeared benign and was about 4 to 5 mm. Final views in the rectum including retroflexion showed no other lesions. IMPRESSION: 1. Ileocecal mass - Surgery consult needed. Addendum: poorly differentiated adenocarcinoma 2. Colon polyps - removed to facilitate moving on with the care without concerned about retained lesions. [id number]/CPS #: [id number] [facility]ALE[facility]
[2016-08-07 08:23] LABS: Magnesium 1.6 mg/dL (1.9-2.7)
[2016-08-07] MEDS: Insulin LISPRO* 1 UNITS UNIT SUBCUT SCH ×3 (09:44→16:27)
[2016-08-07] MEDS ORDERED: Gadoxetate* (CONTRAST) 181.43 MG/ML 10 ML SDV IV ONE (10:50)
--- NOTE | 2016-08-07 11:43 | RAD ---
Indication: Colon mass, liver lesions are identified. Image sequences: Axial diffusion, axial T2, coronal T2 weighted images, dynamic axial images of the liver were obtained. 10 mL of healed breast was injected intravenously and dynamic axial images were obtained. Correlation is made with previous exam dated October 13, 2002, CT dated August 05, 2016 and ultrasound performed on August 05, 2016. The right lobe subcapsular lesion identified on prior CT demonstrates minimal increased signal on T2-weighted sequences. No definite nodular peripheral enhancement is noted. This does not demonstrate increased uptake on the postcontrast images. This lesion measures approximately 10 mm. Findings are suspicious for a metastatic lesion. Additionally the lesion in the inferior right lobe of liver also does not demonstrate increased signal on T2-weighted sequences. This does not uptake hepatocellular agent this is also suspicious for metastatic disease especially given patient's history. The lesion in the inferior tip of the right lobe of liver measures approximately 10 mm. Small amount of ascites is noted. The spleen is normal in size. The pancreas demonstrates no mass or pancreatic duct dilatation. The common duct is not dilated. The gallbladder demonstrates no calcified gallstones. No dilated loops of bowel are noted. No adrenal lesions are noted. The kidneys demonstrate cortical cyst in the right kidney. Dilated loops of bowel are noted. IMPRESSION: LESION IN THE SUBCAPSULAR POSTERIOR SEGMENT OF THE RIGHT LOBE OF LIVER AND IN THE INFERIOR RIGHT LOBE OF LIVER DEMONSTRATES NO EVIDENCE OF UPTAKE OF THE HEPATOCELLULAR AGENT. THIS DOES NOT DEMONSTRATE TYPICAL FINDINGS FOR HEMANGIOMA AND THE POSSIBILITY OF METASTATIC DISEASE SHOULD BE CONSIDERED. THESE EACH MEASURE APPROXIMATELY 10 MM. A SMALL AMOUNT OF ASCITES IS NOTED.
[2016-08-07] MEDS ORDERED: Potassium Chlor TAB* 20 MEQ TAB.ER PO ONE (14:22)
[2016-08-07] MEDS ORDERED: Magnesium Sulfate 2 GM IV* 2 GM/50 ML BAG IVPB ONE (14:22)
--- NOTE | 2016-08-07 14:26 | CONS ---
CC: María Perkins MD. SURGICAL CONSULTATION REPORT: DATE OF CONSULT: 08/07/16 REASON FOR CONSULTATION: Cecal mass. HISTORY OF PRESENT ILLNESS: This is a 46-year-old female with a past medical history significant for diabetes and a 4-month history of episodic abdominal pain, which was noted to occur sporadically without any significant provoking factors. She denies nausea, vomiting or constipation that is related to this initially. She does report improvement of the pain in the past with ibuprofen. Her symptoms have been progressive and over the past month she has had episodes of pain every week lasting a couple of days, which then are associated with diarrhea and resolved over time. This past weekend, however, her pain was very severe and she presented to the emergency room, as she had no improvement with ibuprofen and in the emergency room she had nausea and vomiting prompting evaluation with a CT scan. The CT scan demonstrated findings of terminal ileal wall thickening into the base of the cecum, a small amount of ascites and a small bowel obstruction. In addition, she had low density lesions in the liver thought to represent either hemangiomas or focal fatty infiltration in the background of hepatic steatosis. Her findings prompted an admission to the hospitalist service and GI consultation with initial suspicion of inflammatory bowel disease, she was scheduled for a colonoscopy. Colonoscopy was performed by Dr. Messina on 08/06/16 and findings were an ileocecal mass, which was described as a large fungating mass filling the lumen covered with necrotic debris and biopsies were performed. Based on the findings surgical consultation was requested. The patient denies any current episodes of nausea, vomiting. She has pain that appears to be relieved by Tylenol. She has been tolerating clear liquids. She does not report fevers or chills, or night sweats. She reports a 40-pound weight loss over the past year, which she states is intentional. PAST MEDICAL HISTORY: Significant for diabetes, dermoid cysts. PAST SURGICAL HISTORY: She has had laparoscopic unilateral salpingo- oophorectomy for ectopic and dermoid cyst and a laparotomy with contralateral resection of torsion of the dermoid cyst. MEDICATIONS: At present she is taking insulin and Januvia. She has p.r.n. ibuprofen, tramadol, Dilaudid, Compazine, ondansetron, and Tylenol. ALLERGIES: MORPHINE has caused a rash in the past. PERCOCET causes itching. SOCIAL HISTORY: She is with 2 children and she denies alcohol, tobacco or drug use. She is employed. FAMILY HISTORY: Mother and father have diabetes. Father has heart disease. Sister has had breast cancer. There is no history of colon polyps, cancers or inflammatory bowel disease. REVIEW OF SYSTEMS: Seven systems reviewed with finding significant for those above, otherwise negative. PHYSICAL EXAMINATION: She is a 38-year-old female in no acute distress. Her height is 5 feet 9 inches, weight is 234 pounds, BMI 34.6, temperature is 98.8, pulse 85, respirations 18, blood pressure 115/71, O2 saturation 96% on room air. Head is normocephalic and atraumatic. Sclerae anicteric. Mucous membranes are moist. There is no otorrhea or rhinorrhea. Her neck is symmetrical and trachea is midline. No palpable lymphadenopathy or masses. Her lungs are clear to auscultation bilaterally without wheezes, rales or rhonchi. No use of accessory muscles for respiration. Heart is regular, S1 and S2. No murmurs, rubs, or gallops appreciated. Abdomen is obese, distended. Bowel sounds are present with some high- pitched tinkling and rushes. The abdomen has scars in the Pfannenstiel position and also transumbilical. There is some mild diffuse lower abdominal tenderness with no rebound or guarding and no appreciable masses. Extremities are warm without cyanosis, clubbing or edema. IMPRESSION: Radiographic data images of the CT scan were reviewed and findings as above. DIAGNOSTIC STUDIES/LAB DATA: Reveals WBCs of 7.2, hemoglobin of 12.3, platelets of 348. Chemistries are notable for low potassium of 3.4. Elevated glucose of 188, low magnesium of 1.6 and calcium 8.1. Her remaining electrolytes were normal. IMPRESSION: This 46-year-old female with cecal mass suspicious for carcinoma. She also has obstruction. She does not appear to be acutely ill at this time. PLAN/RECOMMENDATION: I discussed the findings with patient and her sister, who accompanied her. I discussed the differential diagnosis and we discussed the surgical management options. I discussed laparoscopic assisted and open right colectomy with lymphadenectomy as procedure of choice based on suspicion for malignancy. The nature of the procedure, indications, risks, benefits and alternatives have been discussed including the option of no treatment. Need for anesthesia was discussed. We discussed expectations regarding hospitalization and postoperative recovery. We discussed potential need for chemotherapy and possible need for port placement. The risks for surgery were explained including not limited to bleeding, infection, pain, scarring, blood clots, pneumonia, nausea, vomiting, changes in bowel habits, visceral injury, anastomotic leakage, potential need for ostomy and risks of anesthesia. The patient had an opportunity to ask questions and all her questions were answered. She stated her understanding. She wishes to proceed with surgery. Plan will be to keep her on clear liquids with timing of surgery likely Friday. We will be able to follow up on the pathology results prior to this and discuss the possible benefits of port placement if warranted. [id number]/[facility] #: [id number]
--- NOTE | 2016-08-07 15:31 | PN ---
Subjective Date of Service: 08/07/16 Interval History: Patient reports no abd pain. She is still having frequent diarrhea. She met with surgery earlier today. Denies cough, SOB, palpitations. Objective Active Medications: Acetaminophen (Tylenol Tab*) 650 mg PO Q4H PRN PRN Reason: FEVER/PAIN Last Admin: 08/05/16 22:22 Dose: 650 mg Al Hydrox/Mg Hydrox/Simethicone (Maalox Plus*) 30 ml PO Q6H PRN PRN Reason: INDIGESTION Dextrose (D50w Syringe 50 Ml*) 12.5 gm IV PUSH .FOR FS < 60 - SS PRN PRN Reason: FS < 60 Diphenhydramine HCl (Benadryl Po*) 50 mg PO Q6H PRN PRN Reason: ITCHING Hydromorphone HCl (Dilaudid Iv*) 0.5 mg IV SLOW PU Q4H PRN PRN Reason: PAIN Potassium Chloride/Sodium Chloride (Ns 0.9% W/ 20 Meq Kcl 1000 Ml*) 1,000 mls @ 125 mls/hr IV PER RATE [facility] Last Admin: 08/07/16 15:21 Dose: 125 mls/hr Ibuprofen (Motrin Tab*) 600 mg PO Q8H PRN PRN Reason: PAIN Last Admin: 08/05/16 16:20 Dose: 600 mg Insulin Glargine (Lantus(*)) 10 units SUBCUT 2100 [facility] Last Admin: 08/06/16 20:59 Dose: 10 units Insulin Human Lispro (Humalog*) 0 units SUBCUT AC [facility] PRN Reason: Protocol Last Admin: 08/07/16 13:12 Dose: Not Given Ondansetron HCl (Zofran Inj*) 4 mg IV Q4H PRN PRN Reason: NAUSEA/VOMITING Last Admin: 08/05/16 21:03 Dose: 4 mg Prochlorperazine Edisylate (Compazine Inj*) 5 mg IV Q6H PRN PRN Reason: NAUSEA/VOMITING Last Admin: 08/06/16 08:50 Dose: 5 mg Sitagliptin Phosphate (Januvia (Nf)) 100 mg PO QPM [facility] Last Admin: 08/06/16 18:07 Dose: 100 mg Tramadol HCl (Ultram*) 50 mg PO Q6H PRN PRN Reason: PAIN Last Admin: 08/05/16 19:32 Dose: 50 mg Vital Signs: Temp Pulse Resp BP Pulse Ox 98.8 F 85 18 115/71 96 08/07/16 07:44 08/07/16 07:44 08/07/16 10:11 08/07/16 07:44 08/07/16 07:44 Oxygen Devices in Use Now: None Appearance: Well appearing, in NAD Respiratory: Symmetrical Chest Expansion and Respiratory Effort, Clear to Auscultation Cardiovascular: NL Sounds; No Murmurs; No JVD, RRR Abdominal: - - slightly distended, BS quiet, mild TTP somewhat diffusely Extremities: No Edema Skin: No Rash or Ulcers Neurological: Alert and Oriented x 3 Result Diagrams: 08/07/16 04:23 08/07/16 04:23 Additional Lab and Data: . Diagnostic Imaging: CT abd/pelvis - bowel wall thickening of the terminal ileum and cecum, liver lesions that can be further defined by US or MRI Colonoscopy - 2 polyps identified, large ileocecal mass identified without obstruction Assess/Plan/Problems-Billing Assessment: This is a 46 yo female with poorly controlled DM admitted with abd pain and diarrhea. Area of bowel thickening identified on CT with a large mass noted on colonoscopy. - Patient Problems (1) Colonic mass Comment: Large mass identified in the ileocecal region on colonoscopy which is concerning for malignancy Patient was evaluated by surgery team today, with plans for resection for Friday Pathology still pending from colonoscopy biopsy MRI of the liver identifies 2 liver lesions that do not have characteristics of hemangiomas and may represent metastasis, biopsy will occur at time of resection Case discussed with oncology who plans to evaluate the patient following pathology results return from surgery Assoc abd pain has improved (2) Diabetes Comment: Poorly controlled HgbA1c 12.2% Did not tolerate Metformin as outpt and has been resistent to insulin therapy Manage with SS Humalog and started 10U Lantus (3) Full code status (4) DVT prophylaxis Comment: SCDs, resume SQ heparin at this time, hold Thurs pm for surgery Friday Status and Disposition: Inpatient. Pending surgical resection
--- NOTE | 2016-08-07 15:57 | PN ---
Progress Note - Progress Note SOAP: Subjective: [This is a 46 yo white female PMH of poorly controlled CM and with a mass found on colonoscopy in ileocecal region of the colon that has been referred for surgical consult and hoping to undergo procedure in next few days. Still awaiting biopsy results from colonoscopy. Patient states she is ready for surgery at soonest date possible. She denies any pain, n/v, constipation at this time but admits to still feeling bloated and crampy. She remains on clear liquid diet. Objective: Vital Signs: Temp Pulse Resp BP Pulse Ox 98.8 F 85 18 115/71 96 08/07/16 07:44 08/07/16 07:44 08/07/16 10:11 08/07/16 07:44 08/07/16 07:44 General: This is a pleasant 46 yo white female that appears stated age in NAD. Lungs: Chest is symmetric and lungs are clear to auscultation. Heart: RRR, no murmurs, rubs, or gallops. Abdomen: Normoactive bowel sounds and abdomen is soft and nontender. Extremities: No edema. Imaging: F/u MRI with contrast yields 10mm lesions in posterior segment in the right lobe of the liver and in the inferior right lobe of the liver demonstrates no evidence of hepatocellular agent, possible metastasis should be considered. Assessment/Plan: 1) Ileocecal Mass: Surgery consulted with patient and hoping to schedule surgery in the afternoon Friday as mass is concerning for malignancy. Per Dr. Cerna, surgery of choice is a laproscopic assisted and open colectomy with lymphadenectomy as procedure of choice with possible placement of port placement if warranted for chemotherapy. Need for port can be assessed prior to surgery when pathology reports comes back from colonoscopy biopsy. Patient was discussed with oncology who will consult post-surgery and when pathology results return. 2) DM, poorly controlled: Fingerstick blood glucose results are showing improvement. Continue with basal bolus dosages with Lantus and SS Humalog and Januvia. 3) DVT Prophylaxis: Continue to hold Heparin. 4) Code Status: Full code.
[2016-08-07] MEDS: CMC: SitaGLIPtin (NF) 100 MG TAB PO SCH (18:13)
[2016-08-07] MEDS: Insulin GLARGINE(*) 1 UNITS UNIT SUBCUT SCH (21:14)
[2016-08-08] MEDS: Insulin LISPRO* 1 UNITS UNIT SUBCUT SCH ×3 (07:43→16:47)
--- NOTE | 2016-08-08 12:02 | PN ---
Progress Note - Progress Note SOAP: Subjective: This is a 46 yo white female PMH of poorly controlled CM and with a mass found on colonoscopy in ileocecal region with planned surgery for resection on Friday. No new changes in patient. Still awaiting biopsy report from colonoscopy. Active meds: Acetaminophen (Tylenol Tab*) 650 mg PO Q4H PRN PRN Reason: FEVER/PAIN Last Admin: 08/05/16 22:22 Dose: 650 mg Al Hydrox/Mg Hydrox/Simethicone (Maalox Plus*) 30 ml PO Q6H PRN PRN Reason: INDIGESTION Dextrose (D50w Syringe 50 Ml*) 12.5 gm IV PUSH .FOR FS < 60 - SS PRN PRN Reason: FS < 60 Diphenhydramine HCl (Benadryl Po*) 50 mg PO Q6H PRN PRN Reason: ITCHING Hydromorphone HCl (Dilaudid Iv*) 0.5 mg IV SLOW PU Q4H PRN PRN Reason: PAIN Potassium Chloride/Sodium Chloride (Ns 0.9% W/ 20 Meq Kcl 1000 Ml*) 1,000 mls @ 125 mls/hr IV PER RATE [facility] Last Admin: 08/07/16 23:51 Dose: 125 mls/hr Ibuprofen (Motrin Tab*) 600 mg PO Q8H PRN PRN Reason: PAIN Last Admin: 08/05/16 16:20 Dose: 600 mg Insulin Glargine (Lantus(*)) 10 units SUBCUT 2100 [facility] Last Admin: 08/07/16 21:14 Dose: 10 units Insulin Human Lispro (Humalog*) 0 units SUBCUT AC [facility] PRN Reason: Protocol Last Admin: 08/08/16 07:43 Dose: Not Given Ondansetron HCl (Zofran Inj*) 4 mg IV Q4H PRN PRN Reason: NAUSEA/VOMITING Last Admin: 08/05/16 21:03 Dose: 4 mg Prochlorperazine Edisylate (Compazine Inj*) 5 mg IV Q6H PRN PRN Reason: NAUSEA/VOMITING Last Admin: 08/06/16 08:50 Dose: 5 mg Sitagliptin Phosphate (Januvia (Nf)) 100 mg PO QPM [facility] Last Admin: 08/07/16 18:13 Dose: 100 mg Tramadol HCl (Ultram*) 50 mg PO Q6H PRN PRN Reason: PAIN Last Admin: 08/05/16 19:32 Dose: 50 mg Allergies Allergy/AdvReac Type Severity Reaction Status Date / Time Morphine Allergy Rash Verified 08/04/16 23:28 Oxycodone [From Percocet] Allergy Itching Verified 08/04/16 23:28 Objective: Vital Signs Temp Pulse Resp BP Pulse Ox 98.4 F 79 16 108/66 95 08/08/16 07:29 08/08/16 07:29 08/08/16 08:00 08/08/16 07:29 08/08/16 07:29 General: This is a pleasant 46 yo white female that appears stated age in NAD. Lungs: Chest is symmetric and lungs are clear to auscultation. Heart: RRR, no murmurs, rubs, or gallops. Abdomen: Normoactive bowel sounds and abdomen is soft with some tenderness diffusely. Extremities: No edema. Assessment/Plan: This is a 46 yo white female PMH of poorly controlled CM and with a mass found on colonoscopy in ileocecal region with planned surgery for resection on Friday. 1) Ileocecal Mass: Surgery consulted with patient and hoping to schedule surgery in the afternoon Friday as mass is concerning for malignancy. Per Dr. Cerna, surgery of choice is a laproscopic assisted and open colectomy with lymphadenectomy as procedure of choice with possible placement of port placement if warranted for chemotherapy. Need for port can be assessed prior to surgery when pathology reports comes back from colonoscopy biopsy. Patient was discussed with oncology who will consult post-surgery and when pathology results return. 2) DM, poorly controlled: Fingerstick blood glucose results are showing improvement. Continue with basal bolus dosages with Lantus and SS Humalog and Januvia. 3) DVT Prophylaxis: Resume SQ Heparin but hold on before surgery. 4) Code Status: Full code.
--- NOTE | 2016-08-08 12:07 | PN ---
Subjective Date of Service: 08/08/16 Interval History: Patient offers no acute complaints. Tolerating clear liquid diet. No abd pain or vomiting. Still having freq diarrhea Objective Active Medications: Acetaminophen (Tylenol Tab*) 650 mg PO Q4H PRN PRN Reason: FEVER/PAIN Last Admin: 08/05/16 22:22 Dose: 650 mg Al Hydrox/Mg Hydrox/Simethicone (Maalox Plus*) 30 ml PO Q6H PRN PRN Reason: INDIGESTION Dextrose (D50w Syringe 50 Ml*) 12.5 gm IV PUSH .FOR FS < 60 - SS PRN PRN Reason: FS < 60 Diphenhydramine HCl (Benadryl Po*) 50 mg PO Q6H PRN PRN Reason: ITCHING Hydromorphone HCl (Dilaudid Iv*) 0.5 mg IV SLOW PU Q4H PRN PRN Reason: PAIN Potassium Chloride/Sodium Chloride (Ns 0.9% W/ 20 Meq Kcl 1000 Ml*) 1,000 mls @ 125 mls/hr IV PER RATE [facility] Last Admin: 08/07/16 23:51 Dose: 125 mls/hr Ibuprofen (Motrin Tab*) 600 mg PO Q8H PRN PRN Reason: PAIN Last Admin: 08/05/16 16:20 Dose: 600 mg Insulin Glargine (Lantus(*)) 10 units SUBCUT 2100 [facility] Last Admin: 08/07/16 21:14 Dose: 10 units Insulin Human Lispro (Humalog*) 0 units SUBCUT AC [facility] PRN Reason: Protocol Last Admin: 08/08/16 07:43 Dose: Not Given Ondansetron HCl (Zofran Inj*) 4 mg IV Q4H PRN PRN Reason: NAUSEA/VOMITING Last Admin: 08/05/16 21:03 Dose: 4 mg Prochlorperazine Edisylate (Compazine Inj*) 5 mg IV Q6H PRN PRN Reason: NAUSEA/VOMITING Last Admin: 08/06/16 08:50 Dose: 5 mg Sitagliptin Phosphate (Januvia (Nf)) 100 mg PO QPM [facility] Last Admin: 08/07/16 18:13 Dose: 100 mg Tramadol HCl (Ultram*) 50 mg PO Q6H PRN PRN Reason: PAIN Last Admin: 08/05/16 19:32 Dose: 50 mg Vital Signs: Temp Pulse Resp BP Pulse Ox 98.4 F 79 16 108/66 95 08/08/16 07:29 08/08/16 07:29 08/08/16 08:00 08/08/16 07:29 08/08/16 07:29 Oxygen Devices in Use Now: None Appearance: Well appearing middle aged female in NAD Respiratory: Symmetrical Chest Expansion and Respiratory Effort, Clear to Auscultation Cardiovascular: NL Sounds; No Murmurs; No JVD, RRR Abdominal: NL Sounds; No Tenderness; No Distention Extremities: No Edema Skin: No Rash or Ulcers Neurological: Alert and Oriented x 3 Result Diagrams: 08/07/16 04:23 08/07/16 04:23 Additional Lab and Data: . Diagnostic Imaging: CT abd/pelvis - bowel wall thickening of the terminal ileum and cecum, liver lesions that can be further defined by US or MRI Colonoscopy - 2 polyps identified, large ileocecal mass identified without obstruction Assess/Plan/Problems-Billing Assessment: This is a 46 yo female with poorly controlled DM admitted with abd pain and diarrhea. Area of bowel thickening identified on CT with a large mass noted on colonoscopy. - Patient Problems (1) Colonic mass Comment: Large mass identified in the ileocecal region on colonoscopy which is concerning for malignancy Patient was evaluated by surgery team, with plans for resection tomorrow Pathology still pending from colonoscopy biopsy, it should return this afternoon MRI of the liver identifies 2 liver lesions that do not have characteristics of hemangiomas and may represent metastasis, biopsy will hopefully occur at time of resection Case discussed with oncology who plans to evaluate the patient following pathology results return from surgery Assoc abd pain has improved (2) Diabetes Comment: Poorly controlled HgbA1c 12.2% Did not tolerate Metformin as outpt and has been resistent to insulin therapy Manage with SS Humalog and started 10U Lantus (3) Full code status (4) DVT prophylaxis Comment: SCDs, heparin held for pending surg tomorrow and regular ambulation has been encouraged Status and Disposition: Inpatient. Pending surgical resection
--- NOTE | 2016-08-08 12:32 | PN ---
Progress Note - Progress Note SOAP: Subjective: She notes pain is less. Diarrhea persists. Objective: Vital Signs Temp 98.4 F 08/08/16 07:29 Pulse 79 08/08/16 07:29 Resp 16 08/08/16 08:00 BP 108/66 08/08/16 07:29 Pulse Ox 95 08/08/16 07:29 Intake & Output 08/07/16 08/08/16 08/08/16 18:59 06:59 18:59 Intake Total 1889 1628 360 Balance 1889 1628 360 Weight 234 lb Intake: IV Fluids 1029 878 NS 20 meq K 1029 878 IVPB 50 magnesium 50 Oral 860 700 360 Other: # Bowel Movements 6 # Voids 3 Pathology reviewed with pt and shows malignancy that is poorly differentiated. Assessment: Obstructing malignancy of the cecum. Will need to await surgical pathology for final diagnosis and staging. Plan: Laparoscopy, right colectomy on 08/09. No plan for liver bx at this time as lesions on imaging are not accessable and likely will need f/u imaging. Procedure, indications, risks, benefits, alternatives and option of no treatment d/w patient. She had opportunity to ask questions and all were answered. She stated understanding and agrees to proceed. Time factor 15 minutes spent [id number] for counseling.
[2016-08-08] MEDS: NS 0.9% w/ 20 Meq KCL 1000 ML* 1,000 ML IV SCH (16:40)
[2016-08-08] MEDS ORDERED: Buffered Lidocaine 0.9% SYRIN* 5 ML/SYR SYRINGE INTRADERM ONE (17:44)
[2016-08-08] MEDS: CMC: SitaGLIPtin (NF) 100 MG TAB PO SCH (18:02)
[2016-08-08] MEDS: Insulin GLARGINE(*) 1 UNITS UNIT SUBCUT SCH (20:18)
[2016-08-08] MEDS: Acetaminophen TAB* 325 MG PO PRN (21:44)
[2016-08-08] MEDS: Ondansetron INJ* 2 MG/ML VIAL IV PRN (22:54)
[2016-08-09] MEDS: NS 0.9% w/ 20 Meq KCL 1000 ML* 1,000 ML IV SCH (03:59)
[2016-08-09] MEDS ORDERED: Metoclopramide TAB* 10 MG PO ONE (06:00)
[2016-08-09] MEDS ORDERED: Famotidine IV* 10 MG/ML 2 ML (20 mg) IV ONE (06:00)
[2016-08-09 06:31] LABS: Hematocrit 40 % (35-47); Hemoglobin 12.7 g/dl (12.0-16.0); Mean Corpuscular HGB Conc 32 g/dl (31-36); Mean Corpuscular Hemoglobin 26 pg (27-31); Mean Corpuscular Volume 81 fL (80-97); Mean Platelet Volume 7 um3 (7.4-10.4); Red Blood Count 4.87 10^6/ul (4.0-5.4); Red Cell Distribution Width 14 % (10.5-15); White Blood Count 8.5 10^3/ul (3.5-10.8)
[2016-08-09 07:04] LABS: BUN/Creatinine Ratio 6.6 (8-20); Calcium 8.7 mg/dL (8.6-10.3); EGFR African American 134.6 (>60); EGFR Non-African American 104.7 (>60); Potassium 4.3 mmol/L (3.5-5.0)
[2016-08-09] MEDS: Insulin LISPRO* 1 UNITS UNIT SUBCUT SCH ×4 (09:35→21:01)
--- NOTE | 2016-08-09 11:10 | PN ---
Progress Note - Progress Note Date of Service: 08/09/16 SOAP: Subjective: Patient to undergo right colectomy today with Dr. Cerna for ileocecal mass found on colonoscopy. She reports one episode of emesis last night around 23:00 that relieved her nausea. Abdominal cramps and diarrhea are still persistent but not increased. Denies nausea, SOB, chest pains, or urinary symptoms. She remains NPO. Objective: Vital Signs: Temp Pulse Resp BP Pulse Ox 98.5 F 76 16 120/71 97 08/09/16 07:31 08/09/16 07:31 08/09/16 08:00 08/09/16 07:31 08/09/16 07:31 General: This is a pleasant 46 yo white female that appears stated age in NAD. Lungs: Chest is symmetric and lungs are clear to auscultation. Heart: RRR, no murmurs, rubs, or gallops. Abdomen: Normoactive bowel sounds and abdomen is soft with some tenderness diffusely. Extremities: No edema. Lab Values: WBC 8.5 10^3/ul (3.5-10.8) 08/09/16 05:37 RBC 4.87 10^6/ul (4.0-5.4) 08/09/16 05:37 Hgb 12.7 g/dl (12.0-16.0) 08/09/16 05:37 Hct 40 % (35-47) 08/09/16 05:37 MCV 81 fL (80-97) 08/09/16 05:37 MCH 26 pg (27-31) L 08/09/16 05:37 MCHC 32 g/dl (31-36) 08/09/16 05:37 RDW 14 % (10.5-15) 08/09/16 05:37 Plt Count 395 10^3/ul (150-450) 08/09/16 05:37 MPV 7 um3 (7.4-10.4) L 08/09/16 05:37 Neut % (Auto) 57.3 % (38-83) 08/09/16 05:37 Lymph % (Auto) 26.9 % (25-47) 08/09/16 05:37 Harris % (Auto) 13.2 % (1-9) H 08/09/16 05:37 Eos % (Auto) 2.2 % (0-6) 08/09/16 05:37 Baso % (Auto) 0.4 % (0-2) 08/09/16 05:37 Absolute Neuts (auto) 4.9 10^3/ul (1.5-7.7) 08/09/16 05:37 Absolute Lymphs (auto) 2.3 10^3/ul (1.0-4.8) 08/09/16 05:37 Absolute Monos (auto) 1.1 10^3/ul (0-0.8) H 08/09/16 05:37 Absolute Eos (auto) 0.2 10^3/ul (0-0.6) 08/09/16 05:37 Absolute Basos (auto) 0 10^3/ul (0-0.2) 08/09/16 05:37 Absolute Nucleated RBC 0.01 10^3/ul 08/09/16 05:37 Nucleated RBC % 0.1 08/09/16 05:37 ESR 10 mm/Hr (0-14) 08/05/16 05:53 Sodium 140 mmol/L (133-145) 08/09/16 05:37 Potassium 4.3 mmol/L (3.5-5.0) 08/09/16 05:37 Chloride 112 mmol/L (101-111) H 08/09/16 05:37 Carbon Dioxide 21 mmol/L (22-32) L 08/09/16 05:37 Anion Gap 7 mmol/L (2-11) 08/09/16 05:37 BUN 4 mg/dL (6-24) L 08/09/16 05:37 Creatinine 0.61 mg/dL (0.51-0.95) 08/09/16 05:37 Est GFR ( Amer) 134.6 (>60) 08/09/16 05:37 Est GFR (Non-Af Amer) 104.7 (>60) 08/09/16 05:37 BUN/Creatinine Ratio 6.6 (8-20) L 08/09/16 05:37 Glucose 135 mg/dL (70-100) H 08/09/16 05:37 POC Glucose (mg/dL) 145 mg/dL (74-106) H 08/09/16 07:24 Hemoglobin A1c 12.2 % (Less than 6.0) H 08/05/16 00:35 Lactic Acid 1.3 mmol/L (0.5-2.0) 08/05/16 00:35 Calcium 8.7 mg/dL (8.6-10.3) 08/09/16 05:37 Magnesium 1.6 mg/dL (1.9-2.7) L 08/07/16 04:23 Total Bilirubin 0.50 mg/dL (0.2-1.0) 08/05/16 05:51 AST 11 U/L (13-39) L 08/05/16 05:51 ALT 9 U/L (7-52) 08/05/16 05:51 Alkaline Phosphatase 64 U/L (34-104) 08/05/16 05:51 C-Reactive Protein 13.37 mg/L (< 5.00) H 08/05/16 00:35 Total Protein 5.6 g/dL (6.4-8.9) L 08/05/16 05:51 Albumin 3.1 g/dL (3.2-5.2) L 08/05/16 05:51 Globulin 2.5 g/dL (2-4) 08/05/16 05:51 Albumin/Globulin Ratio 1.2 (1-3) 08/05/16 05:51 Lipase 28 U/L (11.0-82.0) 08/05/16 00:35 Beta HCG, Quant 2.29 mIU/mL 08/05/16 00:35 Urine Color Iva 08/05/16 03:10 Urine Appearance Cloudy 08/05/16 03:10 Urine pH 5.0 (5-9) 08/05/16 03:10 Ur Specific [place]o 1.040 (1.010-1.030) H 08/05/16 03:10 Urine Protein 1+(30 mg/dl) (Negative) H 08/05/16 03:10 Urine Ketones Trace (Negative) H 08/05/16 03:10 Urine Blood Negative (Negative) 08/05/16 03:10 Urine Nitrate Negative (Negative) 08/05/16 03:10 Urine Bilirubin Negative (Negative) 08/05/16 03:10 Urine Urobilinogen Negative (Negative) 08/05/16 03:10 Ur Leukocyte Esterase Negative (Negative) 08/05/16 03:10 Urine WBC (Auto) Absent (Absent) 08/05/16 03:10 Urine RBC (Auto) 2+(6-10/hpf) (Absent) H 08/05/16 03:10 Ur Squamous Epith Cells Present (Absent) H 08/05/16 03:10 Urine Bacteria Absent (Absent) 08/05/16 03:10 Urine Glucose 3+(>=500 mg/dl) (Negative) H 08/05/16 03:10 Assessment/Plan: This is a 46 yo white female PMH of poorly controlled CM and with a mass found on colonoscopy in ileocecal region with planned surgery for resection today. 1) Ileocecal Mass: Surgery consulted with patient with scheduled surgery today as mass is concerning for malignancy. Per Dr. Cerna, surgery of choice is a laproscopic assisted and open colectomy with lymphadenectomy as with possible placement of port placement if warranted for chemotherapy. Need for port can be assessed prior to surgery when pathology reports comes back from colonoscopy biopsy. Patient was discussed with oncology who will consult post-surgery and when pathology results return. 2) DM, poorly controlled: Fingerstick blood glucose results are showing improvement. Continue with basal bolus dosages with Lantus and SS Humalog and Januvia. 3) DVT Prophylaxis: CI pending surgery. 4) Code Status: Full code.
[2016-08-09] MEDS ORDERED: Ertapenem* 1 GM in NS 0.9% 50 ML* 50 ML IVPB ONE (12:00)
[2016-08-09] MEDS ORDERED: Famotidine IV* 10 MG/ML 2 ML (20 mg) ONE (12:07)
[2016-08-09] MEDS ORDERED: Buffered Lidocaine 0.9% SYRIN* 5 ML/SYR SYRINGE ONE (12:07)
[2016-08-09] MEDS ORDERED: Metoclopramide TAB* 10 MG ONE (12:07)
[2016-08-09] MEDS ORDERED: Rocuronium* 10 MG/ML VIAL ONE (12:26)
[2016-08-09] MEDS ORDERED: KETAMINE HCL* 50 MG/ML 10 ML VIAL ONE (12:26)
[2016-08-09] MEDS ORDERED: Midazolam* 1 MG/ML 5 ML VIAL (5 MG) ONE (12:26)
[2016-08-09] MEDS ORDERED: fentaNYL* 50 MCG/ML 5 ML VIAL (250 MCG VIAL) ONE (12:26)
[2016-08-09] MEDS ORDERED: Lidocaine 2% PF * 5 ML VIAL ONE (12:26)
[2016-08-09] MEDS ORDERED: Ondansetron INJ* 2 MG/ML VIAL ONE (12:26)
[2016-08-09] MEDS ORDERED: Ketorolac INJ* 30 MG/ML 1 ML VIAL ONE (12:26)
[2016-08-09] MEDS ORDERED: Dexamethasone IV* 4 MG/ML 1 ML (4 MG) ONE (12:26)
[2016-08-09] MEDS ORDERED: Propofol* 10 MG/ML 20 ML BTL IV PUSH ONE (12:26)
[2016-08-09] MEDS ORDERED: Bupivacaine 0.25% SDV* 30 ML ONE (12:54)
[2016-08-09] MEDS ORDERED: Heparin VIAL(*) 5000 UNITS/ML VIAL (FIVE THOUSAND) ONE (12:58)
[2016-08-09] MEDS ORDERED: Midazolam* 1 MG/ML 2 ML VIAL (2 MG) ONE (13:29)
[2016-08-09] MEDS ORDERED: fentaNYL* 50 MCG/ML 2 ML VIAL (100 MCG VIAL) ONE (13:49)
[2016-08-09] MEDS ORDERED: Bupivacaine 0.5% W/EPI SDV* 10 ML VIAL INJ ONE (13:55)
[2016-08-09] MEDS ORDERED: Phenylephrine INJ* 10 MG/ML 1 ML VIAL (10 MG) ONE (13:57)
[2016-08-09] MEDS ORDERED: Phenylephrine 1% NASAL* 15 ML BOT ONE (14:20)
[2016-08-09] MEDS ORDERED: fentaNYL* 50 MCG/ML 2 ML VIAL (100 MCG VIAL) IV PRN (14:50)
[2016-08-09] MEDS ORDERED: DiMENhydriNATE IV* 50 MG/ML VIAL IV PUSH PRN (14:50)
[2016-08-09] MEDS ORDERED: Ondansetron INJ* 2 MG/ML VIAL IV PRN ×2 (14:50→17:53)
[2016-08-09] MEDS ORDERED: EPHEDrine (Pressors)* 50 MG/ML VIAL IV PUSH PRN (14:53)
[2016-08-09] MEDS ORDERED: Lactated Ringers 500 ml BAG* 500 ML IV PRN (14:53)
[2016-08-09] MEDS ORDERED: Ropivacaine (OR use only) 2 MG/ML 1 ML ONE (15:40)
[2016-08-09] MEDS ORDERED: HYDROmorphone* 1 MG/ML 1 ML SYR ONE (16:36)
--- NOTE | 2016-08-09 17:05 | PN ---
Progress Note - Progress Note Date of Service: 08/09/16 Note: Brief Operative note Pre Op dx: Colon neoplasm Post op dx: Colon neoplasm Procedure: Diagnostic laparoscopy; Open right colectomy; lysis of adhesions; biopsy right lobe of the liver Anesthesia: GET w/ epidural Surgeon: Dr. Cerna assist: Margaret WATERS; MARVIN Mcconnell EBL: 150cc Fluids: 3000 cc RL Drains: None Specimen: Right Colon; biopsy right lobe liver Findings: Dictated
[2016-08-09] MEDS ORDERED: NS 0.9% 1000 ML* 500 ML IV ONE (17:21)
--- NOTE | 2016-08-09 18:12 | PN ---
Subjective Date of Service: 08/09/16 Interval History: Patient was examined postoperatively in the recovery area. She was awake and accompanied by surgery. Epidural still active so she had no complaints of pain or other discomfort apart from the NG tube being bothersome. She underwent R colectomy with primary anastamosis, lymph node excision and liver biopsy. Objective Active Medications: Acetaminophen (Tylenol Tab*) 650 mg PO Q4H PRN PRN Reason: FEVER/PAIN Last Admin: 08/08/16 21:44 Dose: 650 mg Dextrose (D50w Syringe 50 Ml*) 12.5 gm IV PUSH .FOR FS < 60 - SS PRN PRN Reason: FS < 60 Ephedrine Sulfate (Ephedrine Sulfate (Pressors)*) 5 mg IV PUSH Q5M PRN PRN Reason: HYPOTENSION Heparin Sodium (Porcine) (Heparin Vial(*)) 5,000 units SUBCUT Q8HR [facility] Ropivacaine (Ropivacaine 0.2% Epidural*) 200 mg in 100 mls @ 0 mls/hr EPIDURAL .PER RATE [facility]; Per Protocol PRN Reason: Protocol Lactated Ringer's (Lactated Ringers 500 Ml Bag*) 500 mls @ 2,000 mls/hr IV ONCE PRN PRN Reason: FOR SBP < 90 Lactated Ringer's (Lactated Ringers 1000 Ml Bag*) 1,000 mls @ 150 mls/hr IV PER RATE [facility] Sodium Chloride (Ns 0.9% 1000 Ml*) 500 mls @ 500 mls/hr IV .PER RATE [facility] Stop: 08/09/16 18:20 Hydromorphone HCl (Dilaudid Stave Log [employer]*) 20 mg in 20 mls @ 0 mls/hr [employer] .change Q24H [facility]; Per Protocol PRN Reason: Protocol Insulin Glargine (Lantus(*)) 20 units SUBCUT 2100 [facility] Insulin Human Lispro (Humalog*) 0 units SUBCUT AC [facility] PRN Reason: Protocol Last Admin: 08/09/16 11:12 Dose: Not Given Ondansetron HCl (Zofran Inj*) 4 mg IV Q6H PRN PRN Reason: NAUSEA Vital Signs: Temp Pulse Resp BP Pulse Ox 97.5 F 102 18 125/78 97 08/09/16 17:18 08/09/16 17:58 08/09/16 17:58 08/09/16 17:58 08/09/16 17:58 Oxygen Devices in Use Now: None Appearance: Well appearing in PACU accompanied by family with NG tube in place Respiratory: Symmetrical Chest Expansion and Respiratory Effort, Clear to Auscultation Cardiovascular: NL Sounds; No Murmurs; No JVD, RRR Abdominal: - - surgical dressing in place Extremities: No Edema Skin: No Rash or Ulcers Neurological: Alert and Oriented x 3 Result Diagrams: 08/09/16 05:37 08/09/16 05:37 Additional Lab and Data: . Diagnostic Imaging: CT abd/pelvis - bowel wall thickening of the terminal ileum and cecum, liver lesions that can be further defined by US or MRI Colonoscopy - 2 polyps identified, large ileocecal mass identified without obstruction Assess/Plan/Problems-Billing Assessment: This is a 46 yo female with poorly controlled DM admitted with abd pain and diarrhea. Area of bowel thickening identified on CT with a large mass noted on colonoscopy. - Patient Problems (1) Colonic mass Comment: POD 0 s/p R colectomy with lymph node excision and liver biopsy Large mass identified in the ileocecal region on colonoscopy which is concerning for malignancy, multiple peritoneal implants noted intraoperatively, final pathology pending Colonoscopy pathology demonstrated a poorly differentiated malignancy of uncertain primary with additional stains pending MRI of the liver identifies 2 liver lesions that do not have characteristics of hemangiomas and may represent metastasis, occurred intraoperatively and is pending Case discussed with oncology who plans to evaluate the patient following pathology results return from surgery Assoc abd pain has improved (2) Diabetes Comment: Poorly controlled HgbA1c 12.2% Did not tolerate Metformin as outpt and has been resistent to insulin therapy Manage with SS Humalog and started Lantus therapy (3) Full code status (4) DVT prophylaxis Comment: SCDs, resume heparin when surgery team okays Status and Disposition: Inpatient. Now s/p colectomy pending pathology
[2016-08-09] MEDS ORDERED: HYDROmorphone PCA* 20 MG/20 ML PCA.SYRING ONE (18:13)
[2016-08-09] MEDS ORDERED: Insulin LISPRO* 1 UNITS UNIT SUBCUT ONE (18:21)
[2016-08-09] MEDS: HYDROmorphone PCA* 20 MG/20 ML PCA.SYRING PCA SCH (18:27)
[2016-08-09] MEDS: Pantoprazole IV* 40 MG IV SCH (21:57)
[2016-08-09] MEDS: Heparin VIAL(*) 5000 UNITS/ML VIAL (FIVE THOUSAND) SUBCUT SCH (22:01)
[2016-08-09] MEDS: Insulin GLARGINE(*) 1 UNITS UNIT SUBCUT SCH (22:32)
[2016-08-10] MEDS: Insulin LISPRO* 1 UNITS UNIT SUBCUT SCH ×4 (00:54→17:41)
[2016-08-10] MEDS: Ropivacaine 0.2% EPIDURAL* 200 MG/100 ML BAG EPIDURAL SCH ×3 (02:53→21:44)
[2016-08-10] MEDS: Heparin VIAL(*) 5000 UNITS/ML VIAL (FIVE THOUSAND) SUBCUT SCH ×3 (05:36→22:00)
[2016-08-10 07:38] LABS: Hematocrit 40 % (35-47); Hemoglobin 12.5 g/dl (12.0-16.0); Mean Corpuscular HGB Conc 32 g/dl (31-36); Mean Corpuscular Hemoglobin 25 pg (27-31); Mean Corpuscular Volume 80 fL (80-97); Mean Platelet Volume 7 um3 (7.4-10.4); Red Blood Count 4.93 10^6/ul (4.0-5.4); Red Cell Distribution Width 14 % (10.5-15); White Blood Count 11.9 10^3/ul (3.5-10.8)
[2016-08-10 07:47] LABS: BUN/Creatinine Ratio 11.1 (8-20); Calcium 8.4 mg/dL (8.6-10.3); EGFR African American 129.7 (>60); EGFR Non-African American 100.9 (>60); Potassium 3.8 mmol/L (3.5-5.0)
--- NOTE | 2016-08-10 09:33 | PN ---
Progress Note - Progress Note Date of Service: 08/10/16 SOAP: Subjective: No c/o. Pain well controlled. Taking in large amount of ice so NGT o/p high. No N/V. Discussed surgery findings. Objective: Vital Signs Temp 98.0 F 08/10/16 07:20 Pulse 84 08/10/16 07:20 Resp 14 08/10/16 09:00 BP 113/73 08/10/16 07:20 Pulse Ox 96 08/10/16 09:00 NAD Abd: Incis with dressing d/c/i; soft and NT. Intake & Output 08/09/16 08/10/16 08/10/16 18:59 06:59 18:59 Intake Total 3400 1016 990 Output Total 755 875 525 Balance 2645 141 465 Intake: IV Fluids 3400 1016 990 ERTEPENEM 1 GM 50 LR 3350 1016 990 Oral 0 0 Output: NG Tube Drainage Amount 175 525 Enrique 725 700 Residual 30 Enrique 16 Fr 30 Other: Estimated Void Medium # Voids 2 Assessment: POD#1 s/p R colon/liver bx. Doing well. Plan: Cont NGT, measure po intake. Cont CEI as good pain control. Cont enrique for monitoring. Await path.
[2016-08-10] MEDS ORDERED: Fluconazole 100 MG TAB* TAB PO ONE (11:16)
--- NOTE | 2016-08-10 12:55 | PN ---
Subjective Date of Service: 08/10/16 Interval History: Ms. Santo reports feeling well today. Her pain is well controlled on the epidural and FILM PROCESS OPERATOR. She denies chest pain, SOB, or nausea. She is up ambulating on the unit with nursing staff today. Objective Active Medications: Acetaminophen (Tylenol Tab*) 650 mg PO Q4H PRN Dextrose (D50w Syringe 50 Ml*) 12.5 gm IV PUSH .FOR FS < 60 - SS PRN Ephedrine Sulfate (Ephedrine Sulfate (Pressors)*) 5 mg IV PUSH Q5M PRN Fluconazole (Diflucan 100 Mg Tab*) 150 mg PO ONCE ONE Heparin Sodium (Porcine) (Heparin Vial(*)) 5,000 units SUBCUT Q8HR LOGAN Ropivacaine (Ropivacaine 0.2% Epidural*) 200 mg in 100 mls @ 0 mls/hr EPIDURAL .PER RATE LOGAN; Per Protocol Lactated Ringer's (Lactated Ringers 500 Ml Bag*) 500 mls @ 2,000 mls/hr IV ONCE PRN Lactated Ringer's (Lactated Ringers 1000 Ml Bag*) 1,000 mls @ 150 mls/hr IV PER RATE LOGAN Hydromorphone HCl (Dilaudid Delivery Table Operator*) 20 mg in 20 mls @ 0 mls/hr FILM PROCESS OPERATOR .change Q24H LOGAN; Per Protocol Insulin Glargine (Lantus(*)) 20 units SUBCUT 2100 LOGAN Insulin Human Lispro (Humalog*) 2 - 15 units SUBCUT Q6HR LOGAN Ondansetron HCl (Zofran Inj*) 4 mg IV Q6H PRN Pantoprazole Sodium (Protonix Iv*) 40 mg IV Q24H LOGAN Vital Signs 08/09/16 08/09/16 08/09/16 16:56 17:00 17:05 Temperature 97.5 F Pulse Rate 100 101 99 Respiratory 14 16 16 Rate Blood Pressure 130/85 136/88 129/96 (mmHg) O2 Sat by Pulse 93 94 94 Oximetry 08/09/16 08/09/16 08/09/16 17:15 17:18 17:30 Temperature 97.5 F Pulse Rate 100 98 103 Respiratory 16 16 16 Rate Blood Pressure 124/84 124/84 115/78 (mmHg) O2 Sat by Pulse 95 95 Oximetry 08/09/16 08/09/16 08/09/16 17:45 17:58 18:15 Temperature Pulse Rate 101 102 101 Respiratory 14 18 16 Rate Blood Pressure 118/78 125/78 117/73 (mmHg) O2 Sat by Pulse 97 97 97 Oximetry 08/09/16 08/09/16 08/09/16 18:27 18:30 18:34 Temperature Pulse Rate 99 102 Respiratory 16 16 16 Rate Blood Pressure 114/76 114/76 (mmHg) O2 Sat by Pulse 97 98 Oximetry 08/09/16 08/09/16 08/09/16 18:45 19:00 19:15 Temperature Pulse Rate 100 102 102 Respiratory 18 18 18 Rate Blood Pressure 127/80 127/80 129/77 (mmHg) O2 Sat by Pulse 98 97 98 Oximetry 08/09/16 08/09/16 08/09/16 19:27 19:52 20:04 Temperature 97.6 F Pulse Rate 102 Respiratory 18 16 20 Rate Blood Pressure 113/70 (mmHg) O2 Sat by Pulse 96 93 Oximetry 08/09/16 08/09/16 08/09/16 20:52 21:18 21:52 Temperature 97.5 F Pulse Rate 102 Respiratory 16 16 15 Rate Blood Pressure 109/72 (mmHg) O2 Sat by Pulse 97 94 95 Oximetry 08/09/16 08/09/16 08/09/16 22:00 22:19 22:52 Temperature 98.1 F Pulse Rate 103 Respiratory 16 16 17 Rate Blood Pressure 126/76 (mmHg) O2 Sat by Pulse 96 95 Oximetry 08/10/16 08/10/16 08/10/16 00:00 00:23 00:52 Temperature 98.8 F Pulse Rate 90 Respiratory 16 16 Rate Blood Pressure 109/72 (mmHg) O2 Sat by Pulse 97 97 96 Oximetry 08/10/16 08/10/16 08/10/16 02:00 02:03 04:00 Temperature Pulse Rate 85 Respiratory 16 18 16 Rate Blood Pressure 112/75 (mmHg) O2 Sat by Pulse 96 96 96 Oximetry 08/10/16 08/10/16 08/10/16 04:03 07:15 07:20 Temperature 98.6 F 98.0 F Pulse Rate 80 84 Respiratory 18 16 16 Rate Blood Pressure 109/71 113/73 (mmHg) O2 Sat by Pulse 97 98 96 Oximetry 08/10/16 08/10/16 08:00 09:00 Temperature Pulse Rate Respiratory 16 14 Rate Blood Pressure (mmHg) O2 Sat by Pulse 96 Oximetry Oxygen Devices in Use Now: Nasal Cannula Appearance: Female sitting up in chair in NAD Eyes: No Scleral Icterus Ears/Nose/Mouth/Throat: Mucous Membranes Moist Neck: Trachea Midline Respiratory: Symmetrical Chest Expansion and Respiratory Effort, Clear to Auscultation Cardiovascular: NL Sounds; No Murmurs; No JVD, No Edema Abdominal: - - Soft, nontender, BS hypoactive Lymphatic: No Cervical Adenopathy Extremities: No Edema Skin: No Rash or Ulcers Neurological: Alert and Oriented x 3, NL Muscle Strength and Tone Nutrition: - - NPO except for ice chips Result Diagrams: 08/10/16 07:11 08/10/16 07:11 Additional Lab and Data: . Diagnostic Imaging: CT abd/pelvis - bowel wall thickening of the terminal ileum and cecum, liver lesions that can be further defined by US or MRI Colonoscopy - 2 polyps identified, large ileocecal mass identified without obstruction Assess/Plan/Problems-Billing Assessment: Ms. 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 - Patient Problems (1) Colonic mass Comment: - POD # 1 s/p R colectomy with lymph node excision and liver biopsy. - Large mass identified in the ileocecal region with initial pathology from colonoscopy showing tubular adenoma of uncertain primary though suspect hepatocellular source. Multiple peritoneal implants noted intraoperatively as well. - Case discussed with oncology who plans to evaluate the patient following pathology results. (2) Liver lesion Comment: - S/P biopsy on 08/09/16. Pathology pending. - Case discussed with oncology who plans to evaluate the patient following pathology results. (3) Diabetes Comment: - BGs well controlled inpatient but HgbA1c 12.2%. - Did not tolerate Metformin as outpt and has been resistent to insulin therapy. - Continue lantus with SSI coverage for meals. (4) DVT prophylaxis Comment: - Heparin SQ. (5) Full code status Status and Disposition: Inpatient with LOS > 2 days. Anticipate discharge to home when medically stable.
--- NOTE | 2016-08-10 13:59 | OP ---
CC: María Perkins MD; Spike Messina MD * DATE OF OPERATION: 08/09/16 - ROOM #334 DATE OF : 66 SURGEON: Vikash Cerna MD. VALET PARKING ATTENDANT: JT Combs. ANESTHESIOLOGIST: Dr. Kristopher Betts. ANESTHESIA: General endotracheal and epidural. PRE-OP DIAGNOSIS: Obstructing cecal malignancy. POST-OP DIAGNOSIS: Obstructing cecal malignancy. OPERATIVE PROCEDURE: Exploratory laparoscopy, lysis of adhesions, exploratory laparotomy, right hemicolectomy, right lobe liver wedge liver biopsy. ESTIMATED BLOOD LOSS: 150 mL. IV FLUIDS: 3 L of crystalloid. SPECIMENS: 1. Right colon. 2. Wedge biopsy right lobe liver lesion. DRAINS: None. COMPLICATIONS: None. COUNTS: The instrument, needle, and sponge counts were correct. DESCRIPTION OF PROCEDURE: The patient was brought to the operating room and placed on the table. She received epidural catheter and was positioned supine. She was administered general anesthesia. She received subcutaneous heparin and SCDs. She had a Dunlap catheter placed. She received appropriate intravenous antibiotics and she was prepped and draped in the usual sterile fashion. Initial incision was made infraumbilically and using an open technique, the peritoneal cavity was accessed and a 12-mm trocar was placed. Carbon dioxide was insufflated to a pressure 15 mmHg and the laparoscope was introduced. There was some moderately dilated bowel, adhesions of omentum in the pelvis, and additional 5- mm trocar was placed in the left upper quadrant. Inspection of the peritoneal surfaces along the parietal peritoneum and the liver did not reveal any evidence of peritoneal disease and no evidence of omental disease. There was a moderate amount of ascites noted in the pelvis. LigaSure was used to free the omentum from the midline in the lower abdomen and after doing so, it was possible to further examine the right lower quadrant. There appeared to be peritoneal studding over the cecum, appendix, and terminal ileum. The cecum did appear to be mobile. It was decided at this point that laparotomy would be performed. After removing laparoscopic ports, the incision in the midline was extended superiorly and inferiorly to create an adequate midline laparotomy. An Dc retractor was used. The exploration proceeded with palpation of the liver and there was noted to be two palpable lesions in the right lobe of the liver. The larger one was more accessible on the edge of the liver and this was later biopsied. The position of the nasogastric tube was confirmed in the stomach and then the small bowel was exteriorized and due to its dilation, it was difficult to retract and therefore the enteric contents were milked proximally to empty the small bowel so that it could be retracted to the left side of the abdomen. In the pelvis, there was noted to be uterus present with fibroid and what appeared to be a remnant of the right salpinx was present. This was adherent into the mass and appear to have some peritoneal studding along its portion, so this was taken en bloc with the specimen dividing it with a LigaSure. The peritoneal attachments of the right colon were divided with cautery and following the ascending colon up to the hepatic flexure and then dividing the attachments to the hepatic flexure with the LigaSure and/or cautery extending this to the mid transverse colon. The duodenum was identified and preserved and the patient was noted to have large lymph nodes present within the mesentery along the ileocolic pedicle. The mesentery of the right colon was mobilized fully to the midline. The proximal margin was taken in an area of the terminal ileum that encompassed the peritoneal implants along the mesentery. The mesentery was scored medially and laterally and then LigaSure was used to divide the mesentery incrementally up to the area of the ileocolic pedicle. The pedicle was ultimately divided between Stephanie clamps and suture ligated with 2-0 Polysorb and then the distal margin of the resection was taken proximal to the middle colic vessels and again the mesentery of the transverse colon was divided with combination of LigaSure between Stephanie clamps with ligation with 2-0 Polysorb. The specimen was handed off and continuity of the bowel was restored with a [id number] functional end-to-end ileocolic anastomosis using the [place]-80 stapler with blue cartridge and TA-60 blue cartridge to close the common enterotomy. The exposed staple line was oversewn with 3-0 silk along the [place] staple line and the TA staple line was oversewn with 3-0 Maxon running. The mesenteric defect was run closed with 2-0 Polysorb. Copious lavage was performed and hemostasis was assured. The right lobe liver lesion was resected after placing #1 chromic liver sutures and tying these down and then the nodule was wedged out with scalpel and submitted to pathology. Hemostasis was achieved with cautery and Surgicel. Inspection of the pelvis revealed that there were some additional areas of peritoneal studding present on the rectum mesentery on the left side and also on the posterior uterus near the cul-de-sac. Palpation of the rectum, sigmoid, descending colon, and remaining transverse colon were otherwise normal. Palpation of the stomach revealed no lesions. The gallbladder was normal in appearance and without stones. No additional masses were palpated in the left lobe of the liver. After copious lavage, the abdominal viscera was returned to the anatomic position. The omentum was placed beneath abdominal incision and the incision was closed with #1 Polysorb running. Skin incisions were closed with helene. Dressings were applied. The patient tolerated the procedure well, was extubated , and transferred to recovery in stable condition. [id number]/CPS #: [id number] MTDD
[2016-08-10] MEDS: Pantoprazole IV* 40 MG IV SCH ×2 (17:44→21:55)
[2016-08-10] MEDS: HYDROmorphone PCA* 20 MG/20 ML PCA.SYRING PCA SCH (18:32)
[2016-08-10] MEDS: Insulin GLARGINE(*) 1 UNITS UNIT SUBCUT SCH (21:47)
[2016-08-11] MEDS: Insulin LISPRO* 1 UNITS UNIT SUBCUT SCH ×5 (00:42→23:42)
[2016-08-11] MEDS: Heparin VIAL(*) 5000 UNITS/ML VIAL (FIVE THOUSAND) SUBCUT SCH ×3 (05:38→21:33)
[2016-08-11] MEDS: Ropivacaine 0.2% EPIDURAL* 200 MG/100 ML BAG EPIDURAL SCH ×3 (06:18→22:48)
--- NOTE | 2016-08-11 08:23 | PN ---
Subjective Date of Service: 08/11/16 Interval History: Ms. Santo states that she is feeling relatively this morning. She has no pain in the abdomen. She denies passing flatus or having a bowel movement. She denies other complaint including chest pain, SOB, or nausea. Objective Active Medications: Acetaminophen (Tylenol Tab*) 650 mg PO Q4H PRN Dextrose (D50w Syringe 50 Ml*) 12.5 gm IV PUSH .FOR FS < 60 - SS PRN Ephedrine Sulfate (Ephedrine Sulfate (Pressors)*) 5 mg IV PUSH Q5M PRN Fluconazole (Diflucan 100 Mg Tab*) 150 mg PO ONCE ONE Heparin Sodium (Porcine) (Heparin Vial(*)) 5,000 units SUBCUT Q8HR LOGAN Ropivacaine (Ropivacaine 0.2% Epidural*) 200 mg in 100 mls @ 0 mls/hr EPIDURAL .PER RATE LOGAN; Per Protocol Lactated Ringer's (Lactated Ringers 500 Ml Bag*) 500 mls @ 2,000 mls/hr IV ONCE PRN Lactated Ringer's (Lactated Ringers 1000 Ml Bag*) 1,000 mls @ 150 mls/hr IV PER RATE LOGAN Hydromorphone HCl (Dilaudid Film Color Tester*) 20 mg in 20 mls @ 0 mls/hr CONTINUUM OF CARE MANAGER .change Q24H LOGAN; Per Protocol Insulin Glargine (Lantus(*)) 20 units SUBCUT 2100 LOGAN Insulin Human Lispro (Humalog*) 2 - 15 units SUBCUT Q6HR LOGAN Ondansetron HCl (Zofran Inj*) 4 mg IV Q6H PRN Pantoprazole Sodium (Protonix Iv*) 40 mg IV 2100 LOGAN Vital Signs 08/10/16 08/10/16 08/10/16 09:00 11:00 11:27 Temperature 97.9 F Pulse Rate 86 Respiratory 14 14 16 Rate Blood Pressure 126/80 (mmHg) O2 Sat by Pulse 96 96 96 Oximetry 08/10/16 08/10/16 08/10/16 13:00 15:00 15:34 Temperature 98.2 F Pulse Rate 89 Respiratory 16 16 16 Rate Blood Pressure 124/78 (mmHg) O2 Sat by Pulse 98 97 97 Oximetry 08/10/16 08/10/16 08/10/16 17:00 18:32 18:40 Temperature Pulse Rate Respiratory 15 16 16 Rate Blood Pressure (mmHg) O2 Sat by Pulse 98 96 Oximetry 08/10/16 08/10/16 08/10/16 19:50 20:00 20:02 Temperature 99.4 F Pulse Rate 76 81 Respiratory 16 16 16 Rate Blood Pressure 127/78 (mmHg) O2 Sat by Pulse 97 Oximetry 08/10/16 08/11/16 08/11/16 21:45 00:08 02:00 Temperature 100.2 F Pulse Rate 81 Respiratory 16 16 16 Rate Blood Pressure 105/71 (mmHg) O2 Sat by Pulse 97 97 96 Oximetry 08/11/16 08/11/16 08/11/16 04:00 04:06 05:45 Temperature 99.4 F Pulse Rate 80 Respiratory 16 16 16 Rate Blood Pressure 113/70 (mmHg) O2 Sat by Pulse 97 97 96 Oximetry 08/11/16 08/11/16 07:13 08:00 Temperature 98.8 F Pulse Rate 84 Respiratory 16 20 Rate Blood Pressure 127/70 (mmHg) O2 Sat by Pulse 97 97 Oximetry Oxygen Devices in Use Now: Nasal Cannula Appearance: Female sitting up in chair in NAD Eyes: No Scleral Icterus Ears/Nose/Mouth/Throat: Mucous Membranes Moist Neck: Trachea Midline Respiratory: Symmetrical Chest Expansion and Respiratory Effort, Clear to Auscultation Cardiovascular: NL Sounds; No Murmurs; No JVD, No Edema Abdominal: - - Soft, mildly distended, minimal tenderness, no BS noted Lymphatic: No Cervical Adenopathy Extremities: No Edema Skin: No Rash or Ulcers Neurological: Alert and Oriented x 3, NL Muscle Strength and Tone Nutrition: - - Ice chips only Result Diagrams: 08/10/16 07:11 08/10/16 07:11 Additional Lab and Data: . Diagnostic Imaging: CT abd/pelvis - bowel wall thickening of the terminal ileum and cecum, liver lesions that can be further defined by US or MRI Colonoscopy - 2 polyps identified, large ileocecal mass identified without obstruction Assess/Plan/Problems-Billing Assessment: Ms. 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 - Patient Problems (1) Colonic mass Comment: - POD # 2 s/p R colectomy with lymph node excision and liver biopsy. - Large mass identified in the ileocecal region with initial pathology from colonoscopy showing tubular adenoma of uncertain primary though suspect hepatocellular source. Multiple peritoneal implants noted intraoperatively as well. - Case discussed with oncology who plans to evaluate the patient following pathology results. (2) Liver lesion Comment: - S/P biopsy on 08/09/16. Pathology pending. - Case discussed with oncology who plans to evaluate the patient following pathology results. (3) Diabetes Comment: - BGs well controlled inpatient but HgbA1c 12.2%. - Did not tolerate Metformin as outpt and has been resistent to insulin therapy. - Continue lantus with SSI coverage for meals. (4) DVT prophylaxis Comment: - Heparin SQ. (5) Full code status Status and Disposition: Inpatient with LOS > 2 days. Anticipate discharge to home when medically stable.
--- NOTE | 2016-08-11 10:34 | PN ---
Progress Note - Progress Note Date of Service: 08/11/16 SOAP: Subjective: Pain on L side. No flatus/BM. Tolerating NGT. Objective: Vital Signs Temp 98.8 F 08/11/16 07:13 Pulse 84 08/11/16 07:13 Resp 20 08/11/16 08:00 BP 127/70 08/11/16 07:13 Pulse Ox 97 08/11/16 08:00 NAD Abd: ND, incis C/D/I; no erythema. Soft and min tender. Intake & Output 08/10/16 08/11/16 08/11/16 18:59 06:59 18:59 Intake Total 990 3198 Output Total 950 700 Balance 40 2498 Intake: IV Fluids 990 3028 LR 990 3028 Oral 170 Output: NG Tube Drainage Amount 650 250 Enrique 300 450 Laboratory Results - last 24 hr 08/10/16 08/10/16 08/11/16 11:32 17:27 00:03 POC Glucose (mg/dL) 141 H 111 H 107 H 08/11/16 05:41 POC Glucose (mg/dL) 97 Assessment: POD#2 s/p R colectomy/liver bx Plan: Await GI fct. Can d/c enrique with CEI in. Keep NGT. Ambulate. D/w pt and sis- in-law.
[2016-08-11] MEDS: Insulin GLARGINE(*) 1 UNITS UNIT SUBCUT SCH (21:11)
[2016-08-11] MEDS: Pantoprazole IV* 40 MG IV SCH (21:12)
[2016-08-12 05:25] LABS: Hematocrit 36 % (35-47); Hemoglobin 11.9 g/dl (12.0-16.0); Mean Corpuscular HGB Conc 33 g/dl (31-36); Mean Corpuscular Hemoglobin 27 pg (27-31); Mean Corpuscular Volume 82 fL (80-97); Mean Platelet Volume 7 um3 (7.4-10.4); Red Blood Count 4.43 10^6/ul (4.0-5.4); Red Cell Distribution Width 14 % (10.5-15)
[2016-08-12] MEDS: Heparin VIAL(*) 5000 UNITS/ML VIAL (FIVE THOUSAND) SUBCUT SCH ×3 (05:30→21:52)
[2016-08-12] MEDS: Insulin LISPRO* 1 UNITS UNIT SUBCUT SCH ×4 (05:33→23:46)
[2016-08-12] MEDS: HYDROmorphone PCA* 20 MG/20 ML PCA.SYRING PCA SCH (07:01)
--- NOTE | 2016-08-12 09:12 | PN ---
Progress Note - Progress Note Date of Service: 08/12/16 SOAP: Subjective:POD#3 no flatus,up walking,minimal pain [] Objective:alert &oriented,lungs:clear bilat;Heart:RRR,no murmur;Abd:quiet,soft, minimal tenderness,incision intact with helene,no erythema Ext: nontender,no edema Vital Signs Temp 98.2 F 08/12/16 07:39 Pulse 81 08/12/16 07:39 Resp 18 08/12/16 08:01 BP 130/74 08/12/16 07:39 Pulse Ox 97 08/12/16 08:00 Intake & Output 08/11/16 08/12/16 08/12/16 18:59 06:59 18:59 Intake Total 1181 1666 514 Output Total 800 1160 400 Balance 381 506 114 Intake: IV Fluids 841 1551 454 LR 841 1551 454 Oral 340 115 60 Output: NG Tube Drainage Amount 450 160 Urine 700 400 Dunlap 350 300 Other: # Bowel Movements 0 [] Assessment:NG drainage down [] Plan:pull NG,decrease IV rate,allow sips of clears,ambulate,IS []
[2016-08-12] MEDS ORDERED: Fluconazole 100 MG TAB* TAB PO ONE (11:17)
--- NOTE | 2016-08-12 19:18 | PN ---
Subjective Date of Service: 08/12/16 Interval History: Ms. Santo states that she is feeling relatively well. She reports some mild discomfort to the left side of her abdomen. She denies nausea. She further denies chest pain or SOB. She notes that she has been up ambulating on the unit and is happy the her epidural and NG tube have been discontinued. Objective Active Medications: Acetaminophen (Tylenol Tab*) 650 mg PO Q4H PRN Dextrose (D50w Syringe 50 Ml*) 12.5 gm IV PUSH .FOR FS < 60 - SS PRN Ephedrine Sulfate (Ephedrine Sulfate (Pressors)*) 5 mg IV PUSH Q5M PRN Heparin Sodium (Porcine) (Heparin Vial(*)) 5,000 units SUBCUT Q8HR LOGAN Ropivacaine (Ropivacaine 0.2% Epidural*) 200 mg in 100 mls @ 0 mls/hr EPIDURAL .PER RATE LOGAN; Per Protocol Lactated Ringer's (Lactated Ringers 500 Ml Bag*) 500 mls @ 2,000 mls/hr IV ONCE PRN Hydromorphone HCl (Dilaudid Instrument Checker*) 20 mg in 20 mls @ 0 mls/hr HOT SHOT .change Q24H LOGAN; Per Protocol Lactated Ringer's (Lactated Ringers 1000 Ml Bag*) 1,000 mls @ 100 mls/hr IV PER RATE LOGAN Insulin Glargine (Lantus(*)) 5 units SUBCUT 2100 LOGAN Insulin Human Lispro (Humalog*) 2 - 15 units SUBCUT Q6HR LOGAN Pantoprazole Sodium (Protonix Iv*) 40 mg IV 2100 LOGAN Vital Signs 08/11/16 08/11/16 08/11/16 19:39 20:00 22:00 Temperature 98.3 F Pulse Rate 85 Respiratory 16 17 16 Rate Blood Pressure 139/75 (mmHg) O2 Sat by Pulse 95 96 97 Oximetry 08/11/16 08/12/16 08/12/16 23:46 00:00 02:00 Temperature 98.3 F Pulse Rate 80 Respiratory 18 16 17 Rate Blood Pressure 128/76 (mmHg) O2 Sat by Pulse 97 96 97 Oximetry 08/12/16 08/12/16 08/12/16 03:50 04:00 06:00 Temperature 98.4 F Pulse Rate 84 Respiratory 16 16 16 Rate Blood Pressure 137/79 (mmHg) O2 Sat by Pulse 97 97 97 Oximetry 08/12/16 08/12/16 08/12/16 07:01 07:39 08:00 Temperature 98.2 F Pulse Rate 81 Respiratory 16 16 18 Rate Blood Pressure 130/74 (mmHg) O2 Sat by Pulse 97 97 Oximetry 08/12/16 08/12/16 08/12/16 08:01 10:00 11:12 Temperature 98.7 F Pulse Rate 84 Respiratory 18 18 16 Rate Blood Pressure 147/92 (mmHg) O2 Sat by Pulse 97 94 Oximetry 08/12/16 08/12/16 08/12/16 11:18 12:00 14:00 Temperature Pulse Rate Respiratory 18 18 Rate Blood Pressure (mmHg) O2 Sat by Pulse 97 97 97 Oximetry 08/12/16 08/12/16 08/12/16 15:37 16:00 18:00 Temperature 97.8 F Pulse Rate 85 Respiratory 18 18 18 Rate Blood Pressure 138/80 (mmHg) O2 Sat by Pulse 96 5 95 Oximetry Oxygen Devices in Use Now: None Appearance: Female sitting up in chair in NAD Eyes: No Scleral Icterus Ears/Nose/Mouth/Throat: Mucous Membranes Moist Neck: Trachea Midline Respiratory: Symmetrical Chest Expansion and Respiratory Effort, Clear to Auscultation Cardiovascular: NL Sounds; No Murmurs; No JVD, No Edema Abdominal: - - soft, mild tenderness, no BS heard Extremities: No Edema Skin: No Rash or Ulcers Neurological: Alert and Oriented x 3, NL Muscle Strength and Tone Nutrition: - - clear liquids Result Diagrams: 08/12/16 04:57 08/10/16 07:11 Additional Lab and Data: . Diagnostic Imaging: CT abd/pelvis - bowel wall thickening of the terminal ileum and cecum, liver lesions that can be further defined by US or MRI Colonoscopy - 2 polyps identified, large ileocecal mass identified without obstruction Assess/Plan/Problems-Billing Assessment: Ms. 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 - Patient Problems (1) Ileus following gastrointestinal surgery Comment: - Patient advanced to clears today per surgery, tolerating well thus far. - Abdomen soft but no BS detected, patient denies flatus or BM. - Encouraged frequent mobility. Also suggested to decrease narcotic use as possible, but advised that pain control is also important. (2) Colonic mass Comment: - POD # 3 s/p R colectomy with lymph node excision and liver biopsy. - Large mass identified in the ileocecal region with initial pathology from colonoscopy showing tubular adenoma of uncertain primary though suspect hepatocellular source. Multiple peritoneal implants noted intraoperatively as well. - Case discussed with oncology who plans to evaluate the patient following pathology results. (3) Liver lesion Comment: - S/P biopsy on 08/09/16. Pathology pending. - Case discussed with oncology who plans to evaluate the patient following pathology results. (4) Diabetes Comment: - BGs well controlled inpatient but HgbA1c 12.2%. - Did not tolerate Metformin as outpt and has been resistent to insulin therapy. - Reduced lantus dose due to relative hypoglycemia, continue SSI coverage for meals. (5) DVT prophylaxis Comment: - Heparin SQ. (6) Full code status Status and Disposition: Inpatient with LOS > 2 days. Anticipate discharge to home when medically stable.
[2016-08-12] MEDS: Insulin GLARGINE(*) 1 UNITS UNIT SUBCUT SCH (21:51)
[2016-08-12] MEDS: Pantoprazole IV* 40 MG IV SCH (21:53)
[2016-08-13] MEDS: Heparin VIAL(*) 5000 UNITS/ML VIAL (FIVE THOUSAND) SUBCUT SCH ×3 (05:40→21:11)
[2016-08-13] MEDS: Insulin LISPRO* 1 UNITS UNIT SUBCUT SCH ×3 (05:46→17:58)
[2016-08-13 08:49] LABS: BUN/Creatinine Ratio 6.8 (8-20); Calcium 8.4 mg/dL (8.6-10.3); EGFR African American 196.3 (>60); EGFR Non-African American 152.6 (>60); Potassium 3.4 mmol/L (3.5-5.0)
[2016-08-13] MEDS ORDERED: HYDROcodone/ACETAMIN 5-325 MG* 1 TAB PO PRN (11:13)
--- NOTE | 2016-08-13 12:10 | PN ---
Progress Note - Progress Note Date of Service: 08/13/16 SOAP: Subjective:POD#4 no flatus,no nausea,jovanna clears,up walking [] Objective:lungs:clear bilat;heart:RRR;abd:hypoactive bs,nondistended,incision C/ D/I with helene,no erythema;ext:nontender,no edema [] Assessment: POD#4 s/p R colectomy,liver bx;up walking and sipping warm fluids [] Plan:await GI function,continue clears,wean TELECOM SALES CONSULTANT,oral pain med ordered []
--- NOTE | 2016-08-13 17:04 | PN ---
Subjective Date of Service: 08/13/16 Interval History: Mr. Santo states that she is feeling relatively well. She does have generalized abdominal pain but she has been able to tolerate clear liquids. She also reports have a stool today. She denies other complaint including chest pain or SOB. Objective Active Medications: Acetaminophen (Tylenol Tab*) 650 mg PO Q4H PRN Hydrocodone Bitart/Acetaminophen ([place] 5-325 Tab*) 1 tab PO Q4H PRN Dextrose (D50w Syringe 50 Ml*) 12.5 gm IV PUSH .FOR FS < 60 - SS PRN Ephedrine Sulfate (Ephedrine Sulfate (Pressors)*) 5 mg IV PUSH Q5M PRN Heparin Sodium (Porcine) (Heparin Vial(*)) 5,000 units SUBCUT Q8HR LOGAN Ropivacaine (Ropivacaine 0.2% Epidural*) 200 mg in 100 mls @ 0 mls/hr EPIDURAL .PER RATE LOGAN; Per Protocol Lactated Ringer's (Lactated Ringers 500 Ml Bag*) 500 mls @ 2,000 mls/hr IV ONCE PRN Hydromorphone HCl (Dilaudid Senior Portfolio Analyst*) 20 mg in 20 mls @ 0 mls/hr MIG WELDER .change Q24H LOGAN; Per Protocol Lactated Ringer's (Lactated Ringers 1000 Ml Bag*) 1,000 mls @ 100 mls/hr IV PER RATE LOGAN Insulin Glargine (Lantus(*)) 5 units SUBCUT 2100 LOGAN Insulin Human Lispro (Humalog*) 2 - 15 units SUBCUT Q6HR LOGAN Ondansetron HCl (Zofran Inj*) 4 mg IV Q6H PRN Pantoprazole Sodium (Protonix Iv*) 40 mg IV 2100 LOGAN Vital Signs 08/12/16 08/12/16 08/12/16 18:00 19:47 20:00 Temperature 98.3 F Pulse Rate 78 Respiratory 18 16 17 Rate Blood Pressure 143/71 (mmHg) O2 Sat by Pulse 95 97 97 Oximetry 08/12/16 08/12/16 08/13/16 22:00 23:39 00:00 Temperature 98.4 F Pulse Rate 78 Respiratory 16 16 16 Rate Blood Pressure 133/76 (mmHg) O2 Sat by Pulse 97 97 94 Oximetry 08/13/16 08/13/16 08/13/16 02:00 03:29 04:00 Temperature 98.1 F Pulse Rate 73 Respiratory 16 18 16 Rate Blood Pressure 142/77 (mmHg) O2 Sat by Pulse 95 98 96 Oximetry 08/13/16 08/13/16 08/13/16 05:51 07:44 08:00 Temperature 98.0 F Pulse Rate 77 Respiratory 16 16 16 Rate Blood Pressure 157/82 (mmHg) O2 Sat by Pulse 94 96 96 Oximetry 08/13/16 08/13/16 08/13/16 09:35 10:00 12:00 Temperature Pulse Rate Respiratory 18 18 Rate Blood Pressure (mmHg) O2 Sat by Pulse 96 96 97 Oximetry 08/13/16 08/13/16 08/13/16 12:10 15:52 16:00 Temperature 97.6 F 98.3 F Pulse Rate 74 77 Respiratory 16 16 20 Rate Blood Pressure 141/83 141/74 (mmHg) O2 Sat by Pulse 98 96 98 Oximetry Oxygen Devices in Use Now: None Appearance: Female lying in bed in NAD Eyes: No Scleral Icterus Ears/Nose/Mouth/Throat: Mucous Membranes Moist Neck: Trachea Midline Respiratory: Symmetrical Chest Expansion and Respiratory Effort, Clear to Auscultation Cardiovascular: NL Sounds; No Murmurs; No JVD, No Edema Abdominal: - - soft, distended, BS positive, generalized tenderness Lymphatic: No Cervical Adenopathy Extremities: No Edema Skin: No Rash or Ulcers Neurological: Alert and Oriented x 3, NL Muscle Strength and Tone Nutrition: Taking PO's Result Diagrams: 08/12/16 04:57 08/13/16 08:19 Additional Lab and Data: . Diagnostic Imaging: CT abd/pelvis - bowel wall thickening of the terminal ileum and cecum, liver lesions that can be further defined by US or MRI Colonoscopy - 2 polyps identified, large ileocecal mass identified without obstruction Assess/Plan/Problems-Billing Assessment: Ms. 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 - Patient Problems (1) Ileus following gastrointestinal surgery Comment: - Patient reports BM and has had one BM. - Patient to be advanced to full liquid, tolerating clears thus far. - Encouraged frequent mobility. Also suggested to decrease narcotic use as possible, but advised that pain control is also important. (2) Colonic mass Comment: - POD # 4 s/p R colectomy with lymph node excision and liver biopsy. - Large fungating mass identified in the ileocecal region with initial pathology from colonoscopy showing tubular adenoma of uncertain primary though suspect hepatocellular source. Multiple peritoneal implants noted intraoperatively as well. - Case discussed with oncology who plans to evaluate the patient following pathology results. (3) Liver lesion Comment: - S/P biopsy on 08/09/16. Pathology pending. - Case discussed with oncology who plans to evaluate the patient following pathology results. (4) Diabetes Comment: - BGs well controlled inpatient but HgbA1c 12.2%. - Did not tolerate Metformin as outpt and has been resistent to insulin therapy. - Reduced lantus dose due to relative hypoglycemia, continue SSI coverage for meals. (5) DVT prophylaxis Comment: - Heparin SQ. (6) Full code status Status and Disposition: Inpatient with LOS > 2 days. Anticipate discharge to home when medically stable.
[2016-08-13] MEDS: Pantoprazole IV* 40 MG IV SCH (21:11)
[2016-08-13] MEDS: Insulin GLARGINE(*) 1 UNITS UNIT SUBCUT SCH (21:11)
[2016-08-14] MEDS: Heparin VIAL(*) 5000 UNITS/ML VIAL (FIVE THOUSAND) SUBCUT SCH ×3 (06:11→21:30)
[2016-08-14] MEDS: Insulin LISPRO* 1 UNITS UNIT SUBCUT SCH ×3 (07:11→16:31)
--- NOTE | 2016-08-14 09:52 | PN ---
Progress Note - Progress Note Date of Service: 08/14/16 SOAP: Subjective: Having flatus and multiple BMs, loose. Pain controlled with oral meds. Objective: Vital Signs Temp 98.5 F 08/14/16 07:45 Pulse 72 08/14/16 07:45 Resp 18 08/14/16 09:00 BP 132/76 08/14/16 07:45 Pulse Ox 98 08/14/16 09:00 Intake & Output 08/13/16 08/14/16 08/14/16 18:59 06:59 18:59 Intake Total 1287 1285 406 Output Total 700 1900 350 Balance 587 -615 56 Intake: IV Fluids 985 406 LR 985 406 IVPB 987 LR 987 Oral 300 300 Output: Urine 700 1900 350 Other: Estimated Void Medium Medium Date of Last Bowel 08/14/16 Movement # Bowel Movements 1 Estimated Stool Amount Small Path: poorly differentiated colon ca, 22/38 LN+, liver bx +; d/w pt and sister. Assessment: POD#5 s/p R colectomy/liver bx for metastatic colon ca. Plan: Discussed with patient and sister. Advance diet. D/c CY[employer] FORENS[employer] ANALYST. Consult to DAREK griffin. Home likely tomorrow.
--- NOTE | 2016-08-14 14:18 | PN ---
Subjective Date of Service: 08/14/16 Interval History: Ms. Robertson is crying today on my examination. She quickly changes the subject and notes that she is feeling better because Dr. Tirado had said that her cancer was treatable. She reports having minimal abdominal pain but has had multiple stools and episodes of flatus today. She denies chest pain or SOB. Objective Active Medications: Acetaminophen (Tylenol Tab*) 650 mg PO Q4H PRN Hydrocodone Bitart/Acetaminophen ([place] 5-325 Tab*) 1 tab PO Q4H PRN Dextrose (D50w Syringe 50 Ml*) 12.5 gm IV PUSH .FOR FS < 60 - SS PRN Heparin Sodium (Porcine) (Heparin Vial(*)) 5,000 units SUBCUT Q8HR LOGAN Insulin Glargine (Lantus(*)) 5 units SUBCUT 2100 LOGAN Insulin Human Lispro (Humalog*) 0 units SUBCUT AC LOGAN Ondansetron HCl (Zofran Inj*) 4 mg IV Q6H PRN Vital Signs 08/13/16 08/13/16 08/13/16 15:52 16:00 17:56 Temperature 98.3 F Pulse Rate 77 Respiratory 16 20 18 Rate Blood Pressure 141/74 (mmHg) O2 Sat by Pulse 96 98 Oximetry 08/13/16 08/13/16 08/13/16 18:00 18:30 19:41 Temperature 96.8 F Pulse Rate 80 Respiratory 18 18 16 Rate Blood Pressure 140/79 (mmHg) O2 Sat by Pulse 97 97 95 Oximetry 08/13/16 08/13/16 08/13/16 19:56 20:52 22:00 Temperature Pulse Rate Respiratory 16 16 16 Rate Blood Pressure (mmHg) O2 Sat by Pulse 95 95 Oximetry 08/14/16 08/14/16 08/14/16 00:00 02:00 03:23 Temperature 98.2 F 98.2 F Pulse Rate 76 62 Respiratory 14 16 16 Rate Blood Pressure 149/84 127/73 (mmHg) O2 Sat by Pulse 98 98 98 Oximetry 08/14/16 08/14/16 08/14/16 04:00 06:57 07:10 Temperature Pulse Rate Respiratory 16 16 18 Rate Blood Pressure (mmHg) O2 Sat by Pulse 0 0 98 Oximetry 08/14/16 08/14/16 08/14/16 07:45 07:54 09:00 Temperature 98.5 F Pulse Rate 72 Respiratory 15 15 18 Rate Blood Pressure 132/76 (mmHg) O2 Sat by Pulse 98 98 Oximetry 08/14/16 12:54 Temperature Pulse Rate 78 Respiratory 15 Rate Blood Pressure 136/72 (mmHg) O2 Sat by Pulse 92 Oximetry Oxygen Devices in Use Now: None Appearance: Female lying in bed with at bedside in NAD Eyes: No Scleral Icterus Ears/Nose/Mouth/Throat: Mucous Membranes Moist Neck: Trachea Midline Respiratory: Symmetrical Chest Expansion and Respiratory Effort, Clear to Auscultation Cardiovascular: NL Sounds; No Murmurs; No JVD, No Edema Abdominal: - - Soft, mild generalized , BS hypoactive Lymphatic: No Cervical Adenopathy Extremities: No Edema Skin: No Rash or Ulcers Neurological: Alert and Oriented x 3, NL Muscle Strength and Tone Nutrition: Taking PO's Result Diagrams: 08/12/16 04:57 08/13/16 08:19 Additional Lab and Data: . Diagnostic Imaging: CT abd/pelvis - bowel wall thickening of the terminal ileum and cecum, liver lesions that can be further defined by US or MRI Colonoscopy - 2 polyps identified, large ileocecal mass identified without obstruction Assess/Plan/Problems-Billing Assessment: Ms. 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 - Patient Problems (1) Ileus following gastrointestinal surgery Comment: - Patient has had BM and passed flatus. - Patient advanced to low residue diet and tolerating well. - CONCRETE BLOCK LAYER discontinued. (2) Colon cancer Comment: - POD # 5 s/p R colectomy with lymph node excision and liver biopsy. - Large fungating mass identified in the ileocecal region with pathology now confirming adenocarcinoma of primary colon source. Diffusely metastatic with multiple positive lymph nodes and mets in liver. - Dr. Tirado to consult with plans for port placement and initiation of chemotherapy. (3) Liver lesion Comment: - S/P biopsy on 08/09/16. Primary colon adenocarcinoma. (4) Diabetes Comment: - BGs well controlled inpatient but HgbA1c 12.2%. - Did not tolerate Metformin as outpt and has been resistent to insulin therapy. - Reduced lantus dose due to relative hypoglycemia, continue SSI coverage for meals. (5) DVT prophylaxis Comment: - Heparin SQ. (6) Full code status Status and Disposition: Inpatient with LOS > 2 days. Anticipate discharge to home when medically stable.
[2016-08-14] MEDS: Insulin GLARGINE(*) 1 UNITS UNIT SUBCUT SCH (21:30)
[2016-08-15] MEDS: Heparin VIAL(*) 5000 UNITS/ML VIAL (FIVE THOUSAND) SUBCUT SCH ×2 (06:01→12:50)
--- NOTE | 2016-08-15 06:52 | CONS ---
MEDICAL ONCOLOGY CONSULTATION NOTE: DATE OF CONSULT: 08/14/16 REASON FOR CONSULT: New diagnosis of colon cancer. HISTORY OF PRESENT ILLNESS: Rain Santo is a 46-year-old female, who reports that she developed abdominal pain approximately 4 to 5 months ago, which lasted just a few days and then resolved. She had been placed on metformin in the summer of 2015 and had intermittent loose stools since. In June of 2016, she was changed to Januvia and has not had as much diarrhea since. In early to mid June, she started developing increasing abdominal pain and because of this stopped going to exercise class secondary to pain. This pain was not really related to either bowel movements or to eating. The pain was crampy in nature and could be throughout the abdomen. She denied any blood in the stools. There is no associated nausea or vomiting. No signs of infections, particularly no fevers, sweats, or chills. The pain worsened over the course of several days to weeks and she presented to the emergency room on 08/05/16. The pain was somewhat helped by ibuprofen. She lost approximately 40 pounds over a year intentionally with her new diagnosis of diabetes, but then lost total of 10 pounds in just 1 month. PAST MEDICAL HISTORY: Diabetes mellitus x1 year. No hypertension, WI, or CVA. MEDICATIONS AT THE TIME OF ADMISSION: 1. Januvia. 2. Vitamin D. ALLERGIES: To MORPHINE and OXYCODONE. FAMILY HISTORY: Father at age 73, having had a CABG at age 50 with coronary artery disease and diabetes, and then lung cancer. Mother at age 83 with diabetes, hypertension, CVA, and kidney cancer. Sister, smoker and lung cancer at 47. No other family history of malignancies, specifically no family history of a colon cancer, uterine, or ovarian cancer. She has 2 sons, age 17 and 25, both in good health. SOCIAL HISTORY: She is not a drinker or smoker, does not use any IV drugs. 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. REVIEW OF SYSTEMS: Energy level as above, decreased somewhat recently, other than symptoms mentioned above at the time of her admission with no significant symptoms. Since surgery, she has had a significant improvement in her abdominal pain, is starting to move her bowels, and is eating well. HOSPITAL COURSE: During the hospitalization, she had a consultation with Gastroenterology, with Dr. Crouch on 08/05/16. There was initial question of inflammatory bowel disease. A colonoscopy was performed on 08/06/16 and revealed an ileocecal mass with a recommendation for surgery. The patient went on to have a CT scan of the abdomen and pelvis on 08/05/16 as well, this revealed wall thickening in the terminal ileum extending into the base of the cecum suspicious for inflammatory bowel disease. Small amount of ascites was noted. Low-density lesions were noted in the liver, question of significance. A low-density lesion was also noted in the tail of the pancreas, which appeared to have been present in 2002. This was followed by an MRI scan of the liver, which revealed several lesions , one in the subcapsular posterior segment in the right lobe of the liver and another in the inferior right lobe of the liver suspicious for metastatic carcinoma. The patient was taken to the operating room and had surgery on 08/09/16. She had resection of an obstructing cecal mass. In addition to the biopsy of the liver lesion, multiple lymph nodes were resected. She was also noted to have an area of peritoneal studding present on the rectal mucosa on the left side and on the posterior uterus near the cul-de-sac. Pathology revealed this to be a metastatic colon cancer, [id number]. 22 out of 38 lymph nodes were involved. The tumor itself was 6 cm invading through the muscularis propria through the serosal adipose tissue invading the adherent mesenteric tissue. It involves small bowel, mesenteric fat, and appendix extensively. Extensive lymphovascular invasion was noted. The radial margin was extensively positive at multiple sites. This was a high-grade very aggressive-appearing tumor and also a tumor was found in a separate wedge biopsy of the liver. It should be noted in the operative note that multiple small miliary deposits were left behind. IMPRESSION: Stage IV colon cancer with multiple areas of metastatic disease, not fully resected nor fully resectable. Situation discussed at length with the patient and her and 2 sisters. Recommendation is for when she recovers from her current situation to undergo chemotherapy. NRAS, KRAS, and microsatellite instability tests are still pending. 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 Decision on exact chemotherapy regimen will need to be made once we have back further results of the above testing. Multiagent chemotherapy with target agent would be the most larger . Most likely that she will have a response in terms of disease shrinkage, but I have explained to the patient and her family it appears to be treatable but not a curable situation. She will need to recover from her surgery and most likely chemotherapy will start approximately 3 to 4 weeks from surgery, this will require support and this has already been discussed with Dr. Cerna. To complete her staging workup, she will need a CT scan of her chest and a CEA tumor marker. [id number]/[facility] #: [id number] MTDD
[2016-08-15] MEDS: Acetaminophen TAB* 325 MG PO PRN (07:33)
--- NOTE | 2016-08-15 08:53 | PN ---
Subjective Date of Service: 08/15/16 Interval History: Ms. Fuller states that she is feeling relatively well this morning. She only has pain in her abdomen when trying to get out of bed and it is well managed with tylenol and ibuprofen. She denies other complaint including chest pain, SOB, or nausea. Objective Active Medications: Acetaminophen (Tylenol Tab*) 650 mg PO Q4H PRN Hydrocodone Bitart/Acetaminophen ([place] 5-325 Tab*) 1 tab PO Q4H PRN Dextrose (D50w Syringe 50 Ml*) 12.5 gm IV PUSH .FOR FS < 60 - SS PRN Heparin Sodium (Porcine) (Heparin Vial(*)) 5,000 units SUBCUT Q8HR LOGAN Insulin Glargine (Lantus(*)) 5 units SUBCUT 2100 LOGAN Insulin Human Lispro (Humalog*) 0 units SUBCUT AC LOGAN Ondansetron HCl (Zofran Inj*) 4 mg IV Q6H PRN Vital Signs 08/14/16 08/14/16 08/14/16 09:00 12:54 15:22 Temperature 98.3 F Pulse Rate 78 82 Respiratory 18 15 16 Rate Blood Pressure 136/72 129/65 (mmHg) O2 Sat by Pulse 98 92 94 Oximetry 08/14/16 08/14/16 08/14/16 19:56 20:52 23:28 Temperature 99.0 F 98.5 F Pulse Rate 72 68 Respiratory 19 16 16 Rate Blood Pressure 134/64 131/59 (mmHg) O2 Sat by Pulse 94 96 Oximetry 08/15/16 08/15/16 08/15/16 03:31 07:34 07:53 Temperature 98.7 F 98.0 F Pulse Rate 70 64 Respiratory 16 14 14 Rate Blood Pressure 134/67 131/72 (mmHg) O2 Sat by Pulse 94 94 Oximetry Oxygen Devices in Use Now: None Appearance: Female lying in bed in NAD Eyes: No Scleral Icterus Ears/Nose/Mouth/Throat: Mucous Membranes Moist Neck: Trachea Midline Respiratory: Symmetrical Chest Expansion and Respiratory Effort, Clear to Auscultation Cardiovascular: NL Sounds; No Murmurs; No JVD Abdominal: - - Soft, mild tenderness to palpation, BS +. Midline abdominal incision well approximated Lymphatic: No Cervical Adenopathy Skin: No Rash or Ulcers Neurological: Alert and Oriented x 3, NL Muscle Strength and Tone Nutrition: Taking PO's Result Diagrams: 08/12/16 04:57 08/13/16 08:19 Additional Lab and Data: . Diagnostic Imaging: CT abd/pelvis - bowel wall thickening of the terminal ileum and cecum, liver lesions that can be further defined by US or MRI Colonoscopy - 2 polyps identified, large ileocecal mass identified without obstruction Assess/Plan/Problems-Billing Assessment: Ms. 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 - Patient Problems (1) Ileus following gastrointestinal surgery Comment: - Patient has had BM and passed flatus. - Patient advanced to low residue diet and tolerating well. - Ok for discharge per surgery. (2) Colon cancer Comment: - POD # 6 s/p R colectomy with lymph node excision and liver biopsy. - Large fungating mass identified in the ileocecal region with pathology now confirming adenocarcinoma of primary colon source. Diffusely metastatic with multiple positive lymph nodes and mets to liver. - Dr. Tirado has consulted with plans for port placement and initiation of chemotherapy. (3) Liver lesion Comment: - S/P biopsy on 08/09/16. Primary colon adenocarcinoma. (4) Diabetes Comment: - BGs well controlled inpatient but HgbA1c 12.2%. - Patient would like to start lantus with SSI lispro coverage for meals. (5) DVT prophylaxis Comment: - Heparin SQ. (6) Full code status Status and Disposition: Inpatient with LOS > 2 days. Discharge to home.
[2016-08-15] MEDS: Insulin LISPRO* 1 UNITS UNIT SUBCUT SCH ×2 (09:02→11:44)
[2016-08-15 11:56] VITALS: BP 137/71
--- NOTE | 2016-08-16 15:29 | DS ---
CC: Dr. Perkins; Dr. Tirado; Dr. Cerna* DISCHARGE SUMMARY: DATE OF ADMISSION: 08/05/16 DATE OF DISCHARGE: 08/15/16 PRIMARY CARE PHYSICIAN: Dr. Perkins ATTENDING PHYSICIAN: Dr. Marine Maurice,* (dictation provided by Dominique North NP ) PRIMARY DIAGNOSIS: Colon cancer with metastasis to the liver, status post resection on 08/09/16 SECONDARY DIAGNOSES: 1. Type 2 diabetes. 2. Vitamin D deficiency. MEDICATIONS AT THE TIME OF DISCHARGE: 1. Lantus 5 units subcutaneously daily. 2. Humalog insulin t.i.d. with meals for sliding scale. 3. Tylenol p.r.n. 4. Ibuprofen p.r.n. HOSPITAL COURSE: Ms. Santo is a 46-year-old female with a past medical history of diabetes who presented to the hospital on 08/05/16 with concerns for nausea, vomiting, diarrhea and abdominal pain. Please see the dictated H and P from Dr. Rosalva Villarreal for complete details. The patient states she had abdominal pain on and off for a few weeks. She reported a 10-pound weight loss and then she reported new onset of diarrhea and nausea as well. In the emergency room, her BUN and creatinine were normal. Her white blood cell count was mildly elevated at 14.4. Lactic acid was 1.3. CRP was 13. Lipase 28. Initial concern that perhaps she had an underlying inflammatory bowel disease and a CT scan of the abdomen was ordered. The patient had abdomen and pelvis CT with contrast, which showed "there is wall thickening of the terminal ileum extending into the base of cecum. This is suspicious for inflammatory bowel disease, a small amount of ascites is noted. Findings are secondary to Crohn's disease, although underlying masses are not totally excluded and clinical correlation is suggested. There is small bowel obstruction present. Low-density lesions are noted in the liver, which may represent hemangiomas or focal fatty infiltration. Non-Emergent MRI or ultrasound could be performed to further characterize these lesions. There was a background of hepatic steatosis. Low-density lesion at the tail of the pancreas was likely present on the previous exam of 2002." The patient was seen in consultation by Dr. Jose Angel Crouch from Gastroenterology. I refer you to his notes for complete details. He agreed that the patient had inflammatory bowel disease and recommended that the patient have colonoscopy. Liver ultrasound was performed on 08/05/16, which showed "hepatomegaly with hepatic steatosis. The liver lesions identified on CT are not seen sonographically likely related to technical factors and their small size." On 08/06/16 a colonoscopy was performed by Dr. Messina. I refer you to the note for complete details, but in short, the patient was found to have a large, fungating ileocecal mass and biopsies were performed. Dr. Cerna from surgical service was consulted on a suspicion that this mass was likely a carcinoma. Dr. Cerna recommended a laparoscopic or open right colectomy with lymphadenectomy as procedure of choice. Pathology from the colonoscopy showed a poorly differentiated invasive carcinoma, but the primary site was unclear. The patient went for a surgery on 08/09/[address] Cerna; he found obstructing cecal malignancy. He performed lysis of adhesions, exploratory laparotomy, right hemicolectomy and right lobe liver wedge biopsy. Ms. Santo has recovered slowly from her surgery; however, she has been advanced in her diet from clears to regular. She has had bowel movements, and she has not passed flatus. The biopsy results from the surgery were confirmed yesterday on 08/14/16. It appears that the patient has an invasive adenocarcinoma of the colon that is quite invasive. From the pathology report, it invades "through the muscularis propria through serosal adipose tissue and invades into the adherent mesenteric tissue. Tumor involved the small bowel mesenteric fat and appendix extensively." It is also positive for 22 of 38 lymph nodes. The liver biopsy was confirmed as a metastatic adenocarcinoma from the primary colon site. At that point, Dr. Tirado from Oncology was consulted and he did meet with the patient prior to her discharge. Plans are for her to have a port placed to begin chemotherapy. Ms. Santo was doing well in terms of recovering from her ileus and is medically stable for discharge to home. She will be following up with Nehemiah from surgical service for removal of her helene and also with Dr. Tirado regarding initiation of chemotherapy. DISPOSITION: To home. DIET: Consistent carbohydrate. ACTIVITY: As tolerated. FOLLOWUP PLANS: 1. Please follow up with Dr. Cerna regarding staple removal. 2. Please follow up with Dr. Tirado regarding chemotherapy. 3. Please follow up with Dr. Perkins regarding continued management of diabetes and coordination of care. I will note that the patient was started on insulin during this hospitalization and her hemoglobin A1c was 12.2. TIME SPENT: Approximately 90 minutes was spent on the discharge of this patient , more than half that time was spent with the patient at the bedside reviewing the events leading up to and during this hospitalization, performing the physical examination, and reviewing the plan of care. DOMINIQUE NORTH NP [id number]/[facility] #: [id number]
== END 2016-08-15 13:30 | disposition home or self-care (01) | DRG 221 ==
LOC: ED 23:25 → MED 08-05 03:44 → OBSVTOIN 08-06 17:52 → SSU 08-09 19:50
PROVIDERS: ADMIT Pediatrics; ATTEND Internal Medicine
PROC: 0DBP8ZZ Excision of Rectum, Via Natural or Artificial Opening Endoscopic (ICD-10-PCS; 2016-08-06)
PROC: 0DBL8ZZ Excision of Transverse Colon, Via Natural or Artificial Opening Endoscopic (ICD-10-PCS; 2016-08-06)
PROC: 0DBC8ZX Excision of Ileocecal Valve, Via Natural or Artificial Opening Endoscopic, Diagnostic (ICD-10-PCS; 2016-08-06)
PROC: 0FB10ZX Excision of Right Lobe Liver, Open Approach, Diagnostic (ICD-10-PCS; 2016-08-09)
PROC: 0DTF0ZZ Resection of Right Large Intestine, Open Approach (ICD-10-PCS; 2016-08-09)
PROC: 0DJD4ZZ Inspection of Lower Intestinal Tract, Percutaneous Endoscopic Approach (ICD-10-PCS; principal; 2016-08-09 13:00)
DX: C18.0 Malignant neoplasm of cecum (principal); K56.7 Ileus, unspecified; C78.7 Secondary malignant neoplasm of liver and intrahepatic bile duct; R18.8 Other ascites; K56.60 Unspecified intestinal obstruction; C77.2 Secondary and unspecified malignant neoplasm of intra-abdominal lymph nodes; E11.40 Type 2 diabetes mellitus with diabetic neuropathy, unspecified; E55.9 Vitamin D deficiency, unspecified; E66.3 Overweight; E11.65 Type 2 diabetes mellitus with hyperglycemia; K62.1 Rectal polyp; D12.3 Benign neoplasm of transverse colon; D25.9 Leiomyoma of uterus, unspecified; K76.0 Fatty (change of) liver, not elsewhere classified; Z88.6 Allergy status to analgesic agent; Z88.5 Allergy status to narcotic agent; Z80.3 Family history of malignant neoplasm of breast; Z90.722 Acquired absence of ovaries, bilateral; Z68.34 Body mass index [BMI] 34.0-34.9, adult; Z82.49 Family history of ischemic heart disease and other diseases of the circulatory system; Z83.3 Family history of diabetes mellitus; Z80.51 Family history of malignant neoplasm of kidney; Z80.1 Family history of malignant neoplasm of trachea, bronchus and lung; Z82.3 Family history of stroke; Z79.4 Long term (current) use of insulin
CPT/HCPCS: 36415; 62327; 74177; 74183; 76705; 80048; 80053; 81003; 81015; 81210; 81275; 81403; 81404; 82378; 83036; 83605; 83630; 83690; 83735; 84702; 85025; 85027; 85652; 86140; 87045; 87046; 87493; 87899; 88305; 88307; 88309; 88341; 88342; 94760; A9270-GY; A9581; C1776; G0378; J0780; J1100; J1170; J1335; J1644; J1885; J2250; J2270; J2405; J2704; J2795; J3010; Q9967

== ENCOUNTER 2016-09-03 06:19 | Day surgery (SDC) | payer BC ==
[~2016-09-03 06:19] MED LIST: Buffered Lidocaine 0.9% SYRIN* 5 ML/SYR SYRINGE INTRADERM ONE; Buffered Lidocaine 0.9% SYRIN* 5 ML/SYR SYRINGE ONE; ceFAZolin 2 GM PREMIX (*) 2 GM/50 ML BAG IVPB ONE
[2016-09-03] MEDS ORDERED: Lidocaine 1% INJ* 10 MG/ML 30 ML SDV ONE (07:16)
[2016-09-03] MEDS ORDERED: fentaNYL* 50 MCG/ML 2 ML VIAL (100 MCG VIAL) ONE (07:48)
[2016-09-03] MEDS ORDERED: Midazolam* 1 MG/ML 2 ML VIAL (2 MG) ONE (07:48)
[2016-09-03] MEDS ORDERED: Propofol* 10 MG/ML 20 ML BTL IV PUSH ONE (07:54)
[2016-09-03] MEDS ORDERED: Lidocaine 2% PF * 5 ML VIAL ONE (07:54)
[2016-09-03 09:03] VITALS: BP 128/91
--- NOTE | 2016-09-03 09:05 | RAD ---
INDICATION: LEFT chest power port placement. COMPARISON: No relevant prior exams available on the [facility] PACS for comparison. TECHNIQUE: 10.6 seconds fluoroscopy. FINDINGS: Spot image documents the tip of the LEFT chest port at the level of the superior vena cava directed central. IMPRESSION: Procedural fluoroscopy. CPT II Codes: 6045F
--- NOTE | 2016-09-03 09:10 | RAD ---
Indication: Postop PowerPort placement. Single frontal view of the chest performed at 0835 hours was reviewed. No prior study is available for comparison. No mediastinal shift is noted. Heart is of normal size and configuration. Lung gomez appear clear. Central line appears in place. No pneumothorax is noted. IMPRESSION: NO ACTIVE CARDIOPULMONARY DISEASE IS NOTED.
--- NOTE | 2016-09-04 04:01 | OP ---
CC: Bebeto Tirado MD OPERATIVE REPORT: DATE OF OPERATION: 09/03/16 DATE OF : 66 SURGEON: Dr. Cerna FIELD TECHNICAL SUPPORT CONSULTANT: None. ANESTHESIOLOGIST: Jeff Velez DO ANESTHESIA: Local MAC. PRE-OP DIAGNOSIS: Colon carcinoma, metastatic. POST-OP DIAGNOSIS: Colon carcinoma, metastatic. OPERATIVE PROCEDURE: PowerPort placement, left subclavian. ESTIMATED BLOOD LOSS: Minimal. IV FLUIDS: Crystalloids. SPECIMEN: None. DRAINS: None. COMPLICATIONS: None. COUNTS: Instrument, needle, sponge counts correct. DESCRIPTION OF PROCEDURE: The patient was brought to the operating room and placed on the table supine. The patient's chest and neck were prepped and draped in usual sterile fashion. She received appropriate antibiotics. Time- out was performed. Local anesthetic was infiltrated for a left subclavian approach. The left subclavian vein was cannulated on first pass of the needle. Under fluoroscopic guidance, a guidewire was passed into the superior vena cava. The needle was withdrawn leaving the guidewire in place and then local anesthetic was infiltrated for a pocket planned in the left upper chest. A transverse incision was created with a scalpel and deepened with cautery through the subcutaneous tissues to create a subcutaneous pocket. A counter incision was made at guidewire insertion site and then the 8-Marshallese PowerPort was back tunneled to the pocket and peel-away sheath and dilator were advanced over the guidewire into the superior vena cava under fluoroscopic guidance. The dilator and guidewire were removed and then the catheter was advanced into the area of the superior vena cava atrial junction. The catheter was cut to appropriate length and connected to the PowerPort, which was positioned in the pocket and sutured in place with a single 2-0 Surgipro. The port was accessed. It was drawn and flushed easily and ultimately flushed with heparinized saline. The pocket was closed in 2 layers with 3-0 Polysorb for the subcutaneous tissues, 4- 0 Monocryl for the skin in a running subcuticular fashion. 4-0 Monocryl was used for the counter incision site as well. Steri-Strips were applied with Tegaderm dressing. The patient tolerated the procedure well, was awakened and transferred to the recovery room in stable condition. [id number]/[facility] #: [id number] [facility]
== END 2016-09-03 09:17 | disposition home or self-care (01) ==
LOC: OR 06:19
PROVIDERS: ATTEND Surgery
DX: C18.2 Malignant neoplasm of ascending colon (principal); C78.7 Secondary malignant neoplasm of liver and intrahepatic bile duct; C77.2 Secondary and unspecified malignant neoplasm of intra-abdominal lymph nodes; E11.9 Type 2 diabetes mellitus without complications
CPT/HCPCS: 71010; 76000; C1788; J0690; J1642; J2001; J2250; J2704; J3010

== ENCOUNTER 2017-02-08 14:53 | Inpatient (IN) | payer BC ==
[2017-02-08 16:11] LABS: Hematocrit 46 % (35-47); Hemoglobin 15.9 g/dl (12.0-16.0); Mean Corpuscular HGB Conc 35 g/dl (31-36); Mean Corpuscular Hemoglobin 32 pg (27-31); Mean Corpuscular Volume 94 fL (80-97); Mean Platelet Volume 7 um3 (7.4-10.4); Red Blood Count 4.91 10^6/ul (4.0-5.4); Red Cell Distribution Width 18 % (10.5-15); White Blood Count 10.8 10^3/ul (3.5-10.8)
[2017-02-08 16:26] LABS: Albumin 3.8 g/dL (3.2-5.2); BUN/Creatinine Ratio 19.2 (8-20); C Reactive Protein 17.03 mg/L (< 5.00); Calcium 9.7 mg/dL (8.6-10.3); EGFR Non-African American 84.7 (>60); Globulin 3.7 g/dL (2-4); Potassium 4.2 mmol/L (3.5-5.0); Total Bilirubin 0.7 mg/dL (0.2-1.0); Total Protein 7.5 g/dL (6.4-8.9)
[2017-02-08] MEDS: NS 0.9% IV ONE (16:57)
[2017-02-08] MEDS ORDERED: HYDROmorphone INJ* 2 MG/ML CARPUJECT SYRINGE IV SLOW PU ONE (17:02)
[2017-02-08] MEDS ORDERED: Iodixanol* (CONTRAST) 320 MG/ML 100 ML SDV IV ONE (17:27)
--- NOTE | 2017-02-08 18:22 | RAD ---
Indication: Diffuse abdominal pain. Contrast: Administered 130.2 ml of VISAPAQUE 320 mg/ml. CT of the abdomen and pelvis was performed after oral and IV contrast administration. Coronal and sagittal reconstructed images were obtained. Comparison is made with previous exam dated January 20, 2017 Lung bases demonstrate no pleural fluid, nodules or masses. Heart is of normal size without evidence of pericardial effusion. The liver is normal in size. It is diffusely decreased in density consistent with hepatic steatosis. Additionally there are several hypodense lesions in the liver relative to the fatty liver. In the [place] these lesions measures 19 and 17 mm, in the right lobe close to the vena cava measuring 26 mm, near the dominguez hepatis measuring 12 mm, in the inferior tip of the right lobe measuring 13 mm. These are suspicious for metastatic disease. Pancreas demonstrates no mass or pancreatic duct dilatation. Common duct is not dilated. The stomach is distended with contrast. There are moderately dilated loops of small bowel noted. Collapsed loops of distal bowel especially in the terminal ileum is noted. There appears to be a zone of transition in the right lower quadrant. Findings are consistent with small bowel obstruction. There is fluid throughout the colon. In the omentum there is infiltration of fat in the omentum. I cannot tell whether this is due to omental lesions or small amount of ascites. The uterus is unremarkable. No adnexal masses are noted. No adrenal masses are noted. The kidneys demonstrate symmetric nephrograms without focal lesions. No retroperitoneal lymphadenopathy is noted. Common iliac and external iliac arteries are unremarkable. IMPRESSION: Dilated loops of small bowel with a zone of transition presumably in the right lower quadrant consistent with small bowel obstruction. Small amount of free fluid is noted in the cul-de-sac. Peritoneal studding is noted of uncertain etiology. Multiple hepatic lesions are noted consistent with metastatic disease.
[2017-02-08] MEDS ORDERED: Ondansetron INJ* 2 MG/ML VIAL IV PRN (19:23)
[2017-02-08] MEDS ORDERED: Acetaminophen SUPP* 650 MG SUPP PR PRN (19:23)
[2017-02-08] MEDS ORDERED: LORazepam INJ* 2 MG/ML 1 ML VIAL IV PRN (19:23)
[2017-02-08] MEDS ORDERED: HYDROmorphone INJ* 1 MG/ML CARPUJECT SYRINGE ONE (19:26)
[2017-02-08] MEDS ORDERED: HYDROmorphone INJ* 1 MG/ML CARPUJECT SYRINGE IV SLOW PU ONE (19:29)
[2017-02-08 22:35] LABS: EGFR African American 122.4 (>60); EGFR Non-African American 95.2 (>60)
[2017-02-08] MEDS: Pantoprazole IV* 40 MG IV SCH (23:23)
[2017-02-08] MEDS: NS 0.9% 1000 ML* 1,000 ML IV SCH (23:24)
[2017-02-08] MEDS: fentaNYL* 50 MCG/ML 2 ML VIAL (100 MCG VIAL) IV SLOW PU PRN (23:43)
[2017-02-08 23:59] LABS: Urine Bilirubin Negative (Negative); Urine Glucose 3+(>=500 mg/dL) (Negative); Urine Nitrite Negative (Negative)
--- NOTE | 2017-02-09 00:11 | HP ---
H&P (Free Text) History and Physical: PCP: Chantale Perkins MD Oncology: Jose Tirado MD Date/Time: 02/08/2017 1900 CC: abdominal pain HPI: Mrs Santo is an unfortunate 47F DX'd July 2016 with stg 4 metastatic iliocecal adenaoCA lymph nodes & liver BX positive on treatment with bevacizumab, irinotecan, leucovoran, & flurourocil who awoke at 0230 02/08/2017 with dull/aching diffuse continuous abdominal pain which worsened throughout the day with associated flatus & loose stools without bloody or black aspect. There has been chills & sweats, but no subjective fevers, chest pain, SOB, B/U/ F of urine, or other issues. CT abd/pel W is reported as SBO. PMedHx DM2, poorly controlled vitamin D deficiency Ambulatory Orders Nursing to reconcile. Acetaminophen [Qc Pain Relief Extra Stre] 500 mg PO Q6HR PRN 08/29/16 Ibuprofen [Advil] 600 mg PO Q6HR 08/29/16 Insulin Lispro [Humalog Kwikpen] 3 - 4 unit SC TID 08/29/16 Insulin GLARGINE(*) [Lantus(*)] 7 units SUBCUT BID 01/20/17 Lorazepam [Ativan 1 MG TAB] 1 mg PO BID PRN 01/20/17 Ondansetron HCl [Zofran 4 MG TAB] 4 mg PO Q4HR 01/20/17 Prochlorperazine TAB* [Compazine Tab*] 10 mg PO Q6H PRN 01/20/17 Allergies Morphine Allergy (Verified 02/08/17 21:38) Rash Oxycodone [From Percocet] Allergy (Verified 02/08/17 21:38) Itching PSurgHx open R colectomy w/ lymphadenectomy & R liver lobe wedge biopsy 08/09/2016 SocHx: no tobacco, alcohol, or recreational drugs; lives with her & 2 children; worked as a dental automobile mechanic assistant; full code status FamHx: negative for colon CA ROS: as above, otherwise reviewed and all were negative vitals: Vital Signs Temp 37.6 C 02/08/17 23:03 Pulse 108 02/08/17 23:03 Resp 20 02/08/17 23:43 BP 188/164 02/08/17 23:03 Pulse Ox 96 02/08/17 23:03 Intake & Output 02/08/17 02/08/17 02/09/17 11:59 23:59 11:59 Weight 104.326 kg Constitutional: NAD, normally developed, obese white female HEENM: atraumatic; sclera/conjunctiva: anicteric/clear; hearing: clinically intact; oropharynx: clear, mucosa moist Neck: soft tissue: non-tender; thyroid: normal Pulmonary: clear to auscultation bilaterally, good aeration, no accessory muscle use CV: RR/RR, normal S1S2, no carotid bruit, no jugular venous distention, 2+ B DP/ PT, no edema Abdominal: soft, mildly distended, diffuse mild tenderness with tympany, no rebound/guarding/rigidity, normoactive bowel sounds, no hepatosplenomegaly or masses, no costovertebral angle tenderness Musculoskeletal: general: grossly intact; gait: stable Integumental: normal appearance and texture Psychiatric orientation: AA&O to PPS affect: calm mood: cooperative, pleasant eye contact: good content: reliable responses: timely insight: good Testing: Lab Results 02/08/17 02/08/17 02/08/17 Range/Units 15:55 15:55 15:55 WBC 10.8 (3.5-10.8) 10^3/ul RBC 4.91 (4.0-5.4) 10^6/ul Hgb 15.9 (12.0-16.0) g/dl Hct 46 (35-47) % MCV 94 (80-97) fL MCH 32 H (27-31) pg MCHC 35 (31-36) g/dl RDW 18 H (10.5-15) % Plt Count 271 (150-450) 10^3/ul MPV 7 L (7.4-10.4) um3 Neut % (Auto) 76.7 (38-83) % Lymph % (Auto) 14.4 L (25-47) % [place] % (Auto) 7.7 (1-9) % Eos % (Auto) 0.5 (0-6) % Baso % (Auto) 0.7 (0-2) % Absolute Neuts (auto) 8.3 H (1.5-7.7) 10^3/ul Absolute Lymphs (auto) 1.6 (1.0-4.8) 10^3/ul Absolute Monos (auto) 0.8 (0-0.8) 10^3/ul Absolute Eos (auto) 0.1 (0-0.6) 10^3/ul Absolute Basos (auto) 0.1 (0-0.2) 10^3/ul Absolute Nucleated RBC 0.04 10^3/ul Nucleated RBC % 0.4 INR (Anticoag Therapy) (0.77-1.02) APTT (26.0-36.3) seconds Sodium 135 (133-145) mmol/L Potassium 4.2 (3.5-5.0) mmol/L Chloride 100 L (101-111) mmol/L Carbon Dioxide 23 (22-32) mmol/L Anion Gap 12 H (2-11) mmol/L BUN 14 (6-24) mg/dL Creatinine 0.73 (0.51-0.95) mg/dL Est GFR ( Amer) 109.0 (>60) Est GFR (Non-Af Amer) 84.7 (>60) BUN/Creatinine Ratio 19.2 (8-20) Glucose 321 H (70-100) mg/dL Lactic Acid 3.1 H* (0.5-2.0) mmol/L Calcium 9.7 (8.6-10.3) mg/dL Total Bilirubin 0.70 (0.2-1.0) mg/dL AST 28 (13-39) U/L ALT 28 (7-52) U/L Alkaline Phosphatase 104 (34-104) U/L C-Reactive Protein 17.03 H (< 5.00) mg/L Total Protein 7.5 (6.4-8.9) g/dL Albumin 3.8 (3.2-5.2) g/dL Globulin 3.7 (2-4) g/dL Albumin/Globulin Ratio 1.0 (1-3) Lipase 28 (11.0-82.0) U/L Urine Color Urine Appearance Urine pH (5-9) Ur Specific [place] (1.010-1.030) Urine Protein (Negative) Urine Ketones (Negative) Urine Blood (Negative) Urine Nitrate (Negative) Urine Bilirubin (Negative) Urine Urobilinogen (Negative) Ur Leukocyte Esterase (Negative) Urine Glucose (Negative) 02/08/17 02/08/17 02/08/17 Range/Units 21:53 21:53 21:53 WBC (3.5-10.8) 10^3/ul RBC (4.0-5.4) 10^6/ul Hgb (12.0-16.0) g/dl Hct (35-47) % MCV (80-97) fL MCH (27-31) pg MCHC (31-36) g/dl RDW (10.5-15) % Plt Count (150-450) 10^3/ul MPV (7.4-10.4) um3 Neut % (Auto) (38-83) % Lymph % (Auto) (25-47) % [place] % (Auto) (1-9) % Eos % (Auto) (0-6) % Baso % (Auto) (0-2) % Absolute Neuts (auto) (1.5-7.7) 10^3/ul Absolute Lymphs (auto) (1.0-4.8) 10^3/ul Absolute Monos (auto) (0-0.8) 10^3/ul Absolute Eos (auto) (0-0.6) 10^3/ul Absolute Basos (auto) (0-0.2) 10^3/ul Absolute Nucleated RBC 10^3/ul Nucleated RBC % INR (Anticoag Therapy) 0.87 (0.77-1.02) APTT 26.7 (26.0-36.3) seconds Sodium (133-145) mmol/L Potassium (3.5-5.0) mmol/L Chloride (101-111) mmol/L Carbon Dioxide (22-32) mmol/L Anion Gap (2-11) mmol/L BUN 14 (6-24) mg/dL Creatinine 0.66 (0.51-0.95) mg/dL Est GFR ( Amer) 122.4 (>60) Est GFR (Non-Af Amer) 95.2 (>60) BUN/Creatinine Ratio (8-20) Glucose (70-100) mg/dL Lactic Acid 2.5 H* (0.5-2.0) mmol/L Calcium (8.6-10.3) mg/dL Total Bilirubin (0.2-1.0) mg/dL AST (13-39) U/L ALT (7-52) U/L Alkaline Phosphatase (34-104) U/L C-Reactive Protein (< 5.00) mg/L Total Protein (6.4-8.9) g/dL Albumin (3.2-5.2) g/dL Globulin (2-4) g/dL Albumin/Globulin Ratio (1-3) Lipase (11.0-82.0) U/L Urine Color Urine Appearance Urine pH (5-9) Ur Specific [place] (1.010-1.030) Urine Protein (Negative) Urine Ketones (Negative) Urine Blood (Negative) Urine Nitrate (Negative) Urine Bilirubin (Negative) Urine Urobilinogen (Negative) Ur Leukocyte Esterase (Negative) Urine Glucose (Negative) 02/08/17 Range/Units 23:41 WBC (3.5-10.8) 10^3/ul RBC (4.0-5.4) 10^6/ul Hgb (12.0-16.0) g/dl Hct (35-47) % MCV (80-97) fL MCH (27-31) pg MCHC (31-36) g/dl RDW (10.5-15) % Plt Count (150-450) 10^3/ul MPV (7.4-10.4) um3 Neut % (Auto) (38-83) % Lymph % (Auto) (25-47) % [place] % (Auto) (1-9) % Eos % (Auto) (0-6) % Baso % (Auto) (0-2) % Absolute Neuts (auto) (1.5-7.7) 10^3/ul Absolute Lymphs (auto) (1.0-4.8) 10^3/ul Absolute Monos (auto) (0-0.8) 10^3/ul Absolute Eos (auto) (0-0.6) 10^3/ul Absolute Basos (auto) (0-0.2) 10^3/ul Absolute Nucleated RBC 10^3/ul Nucleated RBC % INR (Anticoag Therapy) (0.77-1.02) APTT (26.0-36.3) seconds Sodium (133-145) mmol/L Potassium (3.5-5.0) mmol/L Chloride (101-111) mmol/L Carbon Dioxide (22-32) mmol/L Anion Gap (2-11) mmol/L BUN (6-24) mg/dL Creatinine (0.51-0.95) mg/dL Est GFR ( Amer) (>60) Est GFR (Non-Af Amer) (>60) BUN/Creatinine Ratio (8-20) Glucose (70-100) mg/dL Lactic Acid (0.5-2.0) mmol/L Calcium (8.6-10.3) mg/dL Total Bilirubin (0.2-1.0) mg/dL AST (13-39) U/L ALT (7-52) U/L Alkaline Phosphatase (34-104) U/L C-Reactive Protein (< 5.00) mg/L Total Protein (6.4-8.9) g/dL Albumin (3.2-5.2) g/dL Globulin (2-4) g/dL Albumin/Globulin Ratio (1-3) Lipase (11.0-82.0) U/L Urine Color Yellow Urine Appearance Clear Urine pH 5.0 (5-9) Ur Specific [place] > 1.060 H (1.010-1.030) Urine Protein Negative (Negative) Urine Ketones Trace H (Negative) Urine Blood Negative (Negative) Urine Nitrate Negative (Negative) Urine Bilirubin Negative (Negative) Urine Urobilinogen Negative (Negative) Ur Leukocyte Esterase Negative (Negative) Urine Glucose 3+(>=500 mg/dl) H (Negative) ECG, personally reviewed: NSR rate 96, no ischemia CT abd/pel W, personally reviewed: IMPRESSION: Dilated loops of small bowel with a zone of transition presumably in the right lower quadrant consistent with small bowel obstruction. Small amount of free fluid is noted in the cul-de- sac. Peritoneal studding is noted of uncertain etiology. Multiple hepatic lesions are noted consistent with metastatic disease. Impression: 47F HX stg 4 adenoCA colon metastatic to lymph nodes and liver on treatment with bevacizumab, irinotecan, leucovoran, & flurourocil presenting with SBO DIAGNOSIS & PLAN Primary SBO : NG to LIS for decompression : strict I&Os : NPO : pain control : IVFs : no indication for ABX at this time : supplemental oxygen : supportive care metastatic adenoCA of colon : management per oncology Secondary DM2, poorly controlled : update A1c : basal/correctional insulin : Q4H glumetry Admission Rational: inpatient for SBO not anticipated to be adequately resolved w/i 48h to allow for discharge DVTp: SCDs & heparin SQ Code Status: full HCP:
[2017-02-09] MEDS ORDERED: LORazepam INJ* 2 MG/ML 1 ML VIAL IV PRN (00:55)
[2017-02-09] MEDS: Insulin LISPRO* 1 UNITS UNIT SUBCUT SCH ×6 (01:24→21:24)
[2017-02-09] MEDS: Heparin VIAL(*) 5000 UNITS/ML VIAL (FIVE THOUSAND) SUBCUT SCH ×3 (05:39→21:21)
[2017-02-09] MEDS: fentaNYL* 50 MCG/ML 2 ML VIAL (100 MCG VIAL) IV SLOW PU PRN ×2 (05:56→21:24)
[2017-02-09 06:53] LABS: Hematocrit 39 % (35-47); Hemoglobin 13.6 g/dl (12.0-16.0); Mean Corpuscular HGB Conc 35 g/dl (31-36); Mean Corpuscular Hemoglobin 32 pg (27-31); Mean Corpuscular Volume 94 fL (80-97); Mean Platelet Volume 7 um3 (7.4-10.4); Red Blood Count 4.19 10^6/ul (4.0-5.4); Red Cell Distribution Width 18 % (10.5-15); White Blood Count 5.2 10^3/ul (3.5-10.8)
[2017-02-09 07:10] LABS: BUN/Creatinine Ratio 25.5 (8-20); Calcium 8.3 mg/dL (8.6-10.3); EGFR African American 151.1 (>60); EGFR Non-African American 117.5 (>60); Potassium 3.7 mmol/L (3.5-5.0)
[2017-02-09] MEDS: NS 0.9% 1000 ML* 1,000 ML IV SCH ×2 (08:05→16:50)
[2017-02-09] MEDS: Pantoprazole IV* 40 MG IV SCH (09:13)
--- NOTE | 2017-02-09 10:14 | ED ---
Tom Peres Stephanie, scribed for Rodrigo Abrams MD on 02/08/17 at 1730 . Abdominal Pain/Female - HPI Summary HPI Summary: The pt is a 47 y/o F presenting to the ED with c/o abd pain that began at 02:30 today. The pain is described as constant and has worsened since onset. Symptoms include cold sweats and diarrhea (usual occurrence). Pt denies dizziness, vomiting, lightheadedness, cough, SOB, and CP. Pt is currently undergoing chemotherapy treatment for stage 4 colon cancer. Pt said she cant have surgery for 6 weeks because she is on Avastin. - History of Current Complaint Chief Complaint: EDAbdPain Stated Complaint: ABD PAIN Time Seen by Provider: 02/08/17 15:11 Hx Obtained From: Patient, Family/Services Tech Onset/Duration: Lasting Days - 1, Still Present, Worse Since - since onset Timing: Constant Pain Intensity: 10 Pain Scale Used: 0-10 Numeric Radiates: No Allergies/Adverse Reactions: Allergies Allergy/AdvReac Type Severity Reaction Status Date / Time Morphine Allergy Rash Verified 02/08/17 21:38 Oxycodone [From Percocet] Allergy Itching Verified 02/08/17 21:38 PMH/Surg Hx/FS Hx/Imm Hx Endocrine/Hematology History: Reports: Hx Diabetes - type 2 Cardiovascular History: Denies: Hx Hypertension, Hx Pacemaker/ICD GI History: Reports: Other GI Disorders - COLON CANCER History: Denies: Hx Dialysis, Hx Renal Disease Sensory History: Reports: Hx Contacts or Glasses Denies: Hx Hearing Aid Opthamlomology History: Reports: Hx Contacts or Glasses EENT History: Denies: Hx Deafness Psychiatric History: Denies: Hx Panic Disorder - Cancer History Cancer Type, Location and Year: new dx colon cancer 07/2016 Hx Chemotherapy: No Hx Radiation Therapy: No - Surgical History Surgery Procedure, Year, and Place: both ovaries removed ~1996 and 2000, bowel resection Hx Anesthesia Reactions: No Infectious Disease History: Unable to Obtain/Confirm Infectious Disease History: Denies: Traveled Outside the [place] in Last 30 Days - Family History Known Family History: Positive: Other - Yes- Breast CA (sister) - Social History Occupation: Employed Part-time Lives: With Family Alcohol Use: None Hx Substance Use: No Substance Use Type: Reports: None Hx Tobacco Use: No Smoking Status (MU): Never Smoked Tobacco Review of Systems Positive: Other - cold sweats. Negative: Fever, Chills Negative: Erythema Negative: Sore Throat Negative: Chest Pain Negative: Shortness Of Breath, Cough Positive: Abdominal Pain, Diarrhea - usual due to colon cancer and chemo treatment. Negative: Vomiting, Nausea Negative: dysuria, hematuria Negative: Myalgia, Edema Negative: Rash Neurological: Other - Negative: dizziness, lightheadedness All Other Systems Reviewed And Are Negative: Yes Physical Exam - Summary Physical Exam Summary: Constitutional: Well-developed, Well-nourished, Alert. (-) Distressed Skin: Warm, Dry HENT: Normocephalic; Atraumatic Eyes: Conjunctiva normal Neck: Musculoskeletal ROM normal neck. (-) JVD, (-) Stridor, (-) Tracheal deviation Cardio: Rhythm regular, rate normal, Heart sounds normal; Intact distal pulses; The pedal pulses are 2+ and symmetric. Radial pulses are 2+ and symmetric. (-) Murmur Pulmonary/Chest wall: Effort normal. (-) Respiratory distress, (-) Wheezes, (-) Rales Abd: (-) Guarding, (-) Rebound, LLQ tenderness. Abd distension. RUQ tenderness. Musculoskeletal: (-) Edema Lymph: (-) Cervical adenopathy Neuro: Alert, Oriented x3 Psych: Mood and affect Normal Triage Information Reviewed: Yes Vital Signs On Initial Exam: Initial Vitals Temp Pulse Resp BP Pulse Ox 96.1 F 101 23 151/97 98 02/08/17 15:03 02/08/17 15:03 02/08/17 15:03 02/08/17 15:03 02/08/17 15:03 Vital Signs Reviewed: Yes - [place] Coma Scale Coma Scale Total: 15 Diagnostics - Vital Signs Vital Signs Temp Pulse Resp BP Pulse Ox 02/08/17 15:03 96.1 F 101 23 151/97 98 - Laboratory Lab Results: Lab Results 02/08/17 02/08/17 02/08/17 Range/Units 15:55 15:55 15:55 WBC 10.8 (3.5-10.8) 10^3/ul RBC 4.91 (4.0-5.4) 10^6/ul Hgb 15.9 (12.0-16.0) g/dl Hct 46 (35-47) % MCV 94 (80-97) fL MCH 32 H (27-31) pg MCHC 35 (31-36) g/dl RDW 18 H (10.5-15) % Plt Count 271 (150-450) 10^3/ul MPV 7 L (7.4-10.4) um3 Neut % (Auto) 76.7 (38-83) % Lymph % (Auto) 14.4 L (25-47) % [place] % (Auto) 7.7 (1-9) % Eos % (Auto) 0.5 (0-6) % Baso % (Auto) 0.7 (0-2) % Absolute Neuts (auto) 8.3 H (1.5-7.7) 10^3/ul Absolute Lymphs (auto) 1.6 (1.0-4.8) 10^3/ul Absolute Monos (auto) 0.8 (0-0.8) 10^3/ul Absolute Eos (auto) 0.1 (0-0.6) 10^3/ul Absolute Basos (auto) 0.1 (0-0.2) 10^3/ul Absolute Nucleated RBC 0.04 10^3/ul Nucleated RBC % 0.4 Sodium 135 (133-145) mmol/L Potassium 4.2 (3.5-5.0) mmol/L Chloride 100 L (101-111) mmol/L Carbon Dioxide 23 (22-32) mmol/L Anion Gap 12 H (2-11) mmol/L BUN 14 (6-24) mg/dL Creatinine 0.73 (0.51-0.95) mg/dL Est GFR ( Amer) 109.0 (>60) Est GFR (Non-Af Amer) 84.7 (>60) BUN/Creatinine Ratio 19.2 (8-20) Glucose 321 H (70-100) mg/dL Lactic Acid 3.1 H* (0.5-2.0) mmol/L Calcium 9.7 (8.6-10.3) mg/dL Total Bilirubin 0.70 (0.2-1.0) mg/dL AST 28 (13-39) U/L ALT 28 (7-52) U/L Alkaline Phosphatase 104 (34-104) U/L C-Reactive Protein 17.03 H (< 5.00) mg/L Total Protein 7.5 (6.4-8.9) g/dL Albumin 3.8 (3.2-5.2) g/dL Globulin 3.7 (2-4) g/dL Albumin/Globulin Ratio 1.0 (1-3) Lipase 28 (11.0-82.0) U/L Result Diagrams: 02/09/17 06:38 02/09/17 06:38 Lab Statement: Any lab studies that have been ordered have been reviewed, and results considered in the medical decision making process. - CT Abd/pelvis CT Interpretation: Positive (See Comments) CT Interpretation Completed By: Radiologist - Dilated loops of small bowel with a zone of transition presumably in the right lower quadrant consistent with small bowel obstruction. Small amount of free fluid is noted in the cul-de-sac. Peritoneal studding is noted of uncertain etiology. Multiple hepatic lesions are noted consistent with metastatic disease. - EKG 15:32 EKG Rhythm: Sinus Rhythm EKG Interpretation: 96 BPM. No stemi. Abdominal Pain Fem Course/Dx - Course Course Of Treatment: Small bowel obstruction. ED physician has discussed pt with general surgery optical fabrication technician as well as Dr. Reyes. Dr. Cerna (surgery optical fabrication technician) agrees with admission. - Diagnoses Provider Diagnoses: Small bowel obstruction Discharge - Discharge Plan Condition: Fair Disposition: ADMITTED TO [facility] documentation as recorded by the Tom kwong Stephanie accurately reflects the service I personally performed and the decisions made by , Rodrigo Abrams MD.
--- NOTE | 2017-02-09 12:50 | RAD ---
Indication: Small bowel obstruction Flat and upright views of the abdomen demonstrates moderately dilated loops of bowel and air-fluid levels. This is consistent with small bowel obstruction. IMPRESSION: Findings consistent with small bowel obstruction.
[2017-02-09] MEDS ORDERED: Insulin GLARGINE(*) 1 UNITS UNIT SUBCUT SCH (21:00)
--- NOTE | 2017-02-09 21:17 | CONS ---
CC: María Perkins MD; Bebeto Tirado MD CONSULTATION REPORT: DATE OF CONSULT: 02/09/17 REASON FOR CONSULT: Small bowel obstruction. HISTORY OF PRESENT ILLNESS: This is a 47-year-old female with a history of metastatic colorectal carcinoma who is status post right colectomy and liver biopsy in July of this year after she presented with obstruction. She has since been treated with chemotherapy through [facility] and currently is on Avastin. She developed a dull diffuse abdominal pain on 02/08/17 at about 2 o'clock in the morning. She slept poorly after that and the pain became progressive. She had nausea, but no vomiting. She has been continuing to pass flatus and pass loose stools, which has been the norm since her surgery. She denies fevers. The patient presented to the emergency room and was evaluated by CT scan imaging , which revealed dilated loops of small bowel with transition zone in the right lower quadrant consistent with small bowel obstruction. She was noted to have peritoneal studding and multiple liver lesions. The patient was admitted to the hospitalist service and surgical consultation was requested. At the time I met the patient, she was reporting passing flatus and stool. She was having no abdominal pain and no nausea or vomiting. PAST MEDICAL HISTORY: Significant for the above-mentioned illness as well as diabetes. PAST SURGICAL HISTORY: Right colectomy with liver biopsy in July 2016 and PowerPort placement in August 2016. MEDICATIONS: Home medications are: 1. Compazine. 2. Zofran. 3. Ativan. 4. Humalog. 5. Lantus. 6. Advil. 7. Acetaminophen. ALLERGIES: MORPHINE and OXYCODONE have caused rash and itching respectively. FAMILY HISTORY: Reviewed and this was noncontributory. SOCIAL HISTORY: She is and works as a dental reproductive healthcare assistant. She denies tobacco or alcohol use. REVIEW OF SYSTEMS: Constitutional: No fevers, some chills. No weight loss. GI: As above. PHYSICAL EXAM: Temperature 98.8, pulse 93, respirations 18, O2 sat 99%, blood pressure 139/82. Abdomen: Obese, bowel sounds present, well-healed midline scar, softly distended, nontender. No palpable masses, no hernias appreciated. DIAGNOSTIC STUDIES/LAB DATA: WBC is 5.2, hemoglobin 13.6, platelet 223. Sodium 137, potassium 3.7, chloride 107, bicarb 23, BUN 14, creatinine 0.55, glucose 201. Images of the abdominal and pelvic CT and abdominal x-ray were reviewed. IMPRESSION: A 47-year-old female with metastatic colorectal carcinoma presenting with small bowel obstruction, which appears to be resolving. PLAN/RECOMMENDATIONS: Agree with plan for discontinuation of NG tube and advancement of diet. Will follow. [id number]/[facility] #: [id number] MTDD
[2017-02-10] MEDS: NS 0.9% 1000 ML* 1,000 ML IV SCH ×2 (01:12→09:02)
[2017-02-10] MEDS: Heparin VIAL(*) 5000 UNITS/ML VIAL (FIVE THOUSAND) SUBCUT SCH ×3 (05:29→20:56)
[2017-02-10 06:04] LABS: BUN/Creatinine Ratio 15.9 (8-20); Calcium 7.8 mg/dL (8.6-10.3); EGFR African American 195.5 (>60); Potassium 3.2 mmol/L (3.5-5.0)
[2017-02-10] MEDS: fentaNYL* 50 MCG/ML 2 ML VIAL (100 MCG VIAL) IV SLOW PU PRN ×2 (06:07→20:11)
--- NOTE | 2017-02-10 08:03 | RAD ---
INDICATION: Small bowel obstruction. COMPARISON: Comparison is made with a prior CT of the abdomen and pelvis from February 08, 2017 and a prior abdominal series from February 09, 2017. TECHNIQUE: Supine and upright views of the abdomen were obtained. FINDINGS: The distal portion of a nasogastric tube projects in the left upper quadrant. The tip projects over the stomach. The side port is at the level of the esophageal junction. There is mild distention of several proximal and mid small bowel loops which appears similar to the prior study. Air is seen in the colon which is nondistended. There are multiple surgical sutures in the right lower quadrant. No free intraperitoneal air or fluid is seen. IMPRESSION: FINDINGS SUGGESTIVE OF A PARTIAL SMALL BOWEL OBSTRUCTION, UNCHANGED.
[2017-02-10] MEDS: Pantoprazole IV* 40 MG IV SCH (08:58)
[2017-02-10] MEDS: Insulin LISPRO* 1 UNITS UNIT SUBCUT SCH ×4 (08:58→20:56)
--- NOTE | 2017-02-10 11:05 | PN ---
Progress Note - Progress Note Date of Service: 02/10/17 Note: HD#2 SBO Still has some cramping, No N/V. Passing flatus, no stool Abd: soft, mildly tender central abd, no peritonitis, no tympany no palp masses. AXR still looks like partial SBO Will cont to monitor, recheck AXR in AM.
[2017-02-10] MEDS: NS 0.9% w/ 40 Meq KCL 1000 ML* 1,000 ML IV SCH ×2 (11:37→18:31)
[2017-02-11] MEDS: NS 0.9% w/ 40 Meq KCL 1000 ML* 1,000 ML IV SCH (04:38)
[2017-02-11] MEDS: Heparin VIAL(*) 5000 UNITS/ML VIAL (FIVE THOUSAND) SUBCUT SCH ×2 (05:23→15:12)
[2017-02-11 05:36] LABS: Hematocrit 37 % (35-47); Hemoglobin 12.4 g/dl (12.0-16.0); Mean Corpuscular HGB Conc 34 g/dl (31-36); Mean Corpuscular Hemoglobin 32 pg (27-31); Mean Corpuscular Volume 94 fL (80-97); Mean Platelet Volume 7 um3 (7.4-10.4); Red Blood Count 3.89 10^6/ul (4.0-5.4); Red Cell Distribution Width 17 % (10.5-15); White Blood Count 5.9 10^3/ul (3.5-10.8)
[2017-02-11 05:52] LABS: BUN/Creatinine Ratio 5.9 (8-20); Calcium 8.2 mg/dL (8.6-10.3); EGFR African American 164.8 (>60); EGFR Non-African American 128.2 (>60); Potassium 3.5 mmol/L (3.5-5.0)
[2017-02-11] MEDS: Pantoprazole IV* 40 MG IV SCH (07:52)
[2017-02-11 08:01] VITALS: BP 144/78
[2017-02-11] MEDS: Insulin LISPRO* 1 UNITS UNIT SUBCUT SCH ×3 (08:11→18:21)
[2017-02-11] MEDS: fentaNYL* 50 MCG/ML 2 ML VIAL (100 MCG VIAL) IV SLOW PU PRN (08:14)
--- NOTE | 2017-02-11 08:16 | RAD ---
Indication: Small bowel obstruction. Metastatic colon carcinoma. Comparison: February 10, 2017 Technique: Supine and upright views of the abdomen. Report: No radiographic evidence for free air. Nasogastric tube tip at level of gastric body. Unchanged long segment mild small bowel dilatation with air-fluid levels. RIGHT abdomen bowel anastomosis staple line. Negative for significant rectal distention with stool. Negative for suspicious calcifications. Unremarkable soft tissue contours. IMPRESSION: Persistent findings of partial distal small bowel obstruction versus ileus.
[2017-02-11] MEDS ORDERED: NS 0.9% w/ 40 Meq KCL 1000 ML* 1,000 ML IV SCH (10:27)
--- NOTE | 2017-02-11 13:01 | PN ---
Progress Note - Progress Note Date of Service: 02/11/17 Note: Seen for SBO Tolerating po's with minimal cramping. No pain. No N/V Cont to pass flatus regularly. Abd soft, non-tender AXR still some dilated loops Despite dilated loops, she is continuing to improve clinically. Discussed dietary choices with her. If she continues to jovanna po's OK to discharge Please let us know if we can be of further assistance.
== END 2017-02-11 18:51 | disposition home or self-care (01) | DRG 247 ==
LOC: ED 14:53 → SSU 19:14
PROVIDERS: ADMIT Hospitalist; ATTEND Internal Medicine Hematology & Oncology
PROC: 0D9670Z Drainage of Stomach with Drainage Device, Via Natural or Artificial Opening (ICD-10-PCS; principal; 2017-02-07)
DX: K56.600 Partial intestinal obstruction, unspecified as to cause (principal); C18.0 Malignant neoplasm of cecum; C77.9 Secondary and unspecified malignant neoplasm of lymph node, unspecified; C78.7 Secondary malignant neoplasm of liver and intrahepatic bile duct; E11.65 Type 2 diabetes mellitus with hyperglycemia; E87.6 Hypokalemia; Z90.722 Acquired absence of ovaries, bilateral; Z80.3 Family history of malignant neoplasm of breast; Z88.6 Allergy status to analgesic agent; Z88.5 Allergy status to narcotic agent
CPT/HCPCS: 36415; 74020; 74177; 80048; 80053; 81003; 82565; 83036; 83605; 83690; 84520; 85025; 85027; 85610; 85730; 86140; 87040; 93005; J1170; J1642; J1644; J3010; Q9967

== ENCOUNTER 2017-05-07 17:14 | Emergency (ER) | payer BC ==
[2017-05-07] MEDS ORDERED: Acetaminophen TAB* 325 MG PO ONE (19:59)
[2017-05-07 20:31] LABS: ABS Basophils 0.1 10^3/ul (0-0.2); ABS Eosinophils 0.2 10^3/ul (0-0.6); ABS Lymphocytes 1.8 10^3/ul (1.0-4.8); ABS Neutrophils 5.7 10^3/ul (1.5-7.7); ABS Nucleated RBC 0 10^3/ul; Eosinophil % 1.9 % (0-6); Hematocrit 36 % (35-47); Hemoglobin 11.9 g/dl (12.0-16.0); Lymphocyte % 20.2 % (25-47); Mean Corpuscular HGB Conc 33 g/dl (31-36); Mean Corpuscular Hemoglobin 29 pg (27-31); Mean Corpuscular Volume 87 fL (80-97); Mean Platelet Volume 6.9 um3 (7.4-10.4); Nucleated Red Blood Cells % 0; Platelet Count 387 10^3/ul (150-450); Red Blood Count 4.15 10^6/ul (4.0-5.4); Red Cell Distribution Width 15 % (10.5-15); White Blood Count 8.7 10^3/ul (3.5-10.8)
--- NOTE | 2017-05-07 20:48 | RAD ---
HISTORY: Fever COMPARISONS: September 03, 2016 VIEWS: 1: frontal portable view of the chest at 8:25 PM FINDINGS: LINES AND TUBES: A left-sided chest port is noted with the tip overlying the superior vena cava. CARDIOMEDIASTINAL SILHOUETTE: The cardiomediastinal silhouette is normal for portable technique. PLEURA: The costophrenic angles are sharp. No pleural abnormalities are noted. LUNG PARENCHYMA: The lungs are clear. ABDOMEN: The upper abdomen is clear. There is no subphrenic gas. BONES AND SOFT TISSUES: No bone or soft tissue abnormalities are noted. IMPRESSION: LINES AND TUBES ABOVE. NO ACTIVE CARDIOPULMONARY DISEASE.
[2017-05-07 20:50] LABS: EGFR Non-African American 112.7 (>60)
[2017-05-07 20:51] LABS: INR 1.02 (0.77-1.02)
[2017-05-07 21:47] LABS: Urine Appearance Cloudy; Urine Blood Negative (Negative); Urine Color Yellow; Urine Ketones Negative (Negative); Urine Protein Negative (Negative); Urine Specific Gravity 1.023 (1.010-1.030); Urine Urobilinogen Positive (Negative)
[2017-05-07 22:28] VITALS: BP 143/90
--- NOTE | 2017-05-07 23:28 | ED ---
Jesse Peres Rebecca, scribed for Brnet Amezquita MD on 05/07/17 at 2220 . HPI Febrile Illness - HPI Summary HPI Summary: Pt is a 47 y/o F who is being treated for metastatic colon CA at [facility] in [place], [place] who presents to ED with a CC of fever. Fever has been intermittent since Friday (2 days ago), with the maximum temperature being 101.8. Sx aggravated and alleviated by nothing. Denies any other symptoms including cough and abdominal pain. She was referred to [facility] [place] [place] ED by her PCP who wanted to make sure she is not neutropenic. - History of Current Complaint Chief Complaint: EDFever Time Seen by Provider: 05/07/17 19:47 Hx Obtained From: Patient Onset/Duration: Started Days Ago - 3 days, Still Present Temperature: 101.8 F - maximum Current Severity: None Pain Intensity: 0 Pain Scale Used: 0-10 Numeric Aggravating Factors: Nothing Alleviating Factors: Nothing Associated Signs and Symptoms: Negative - Additional Pertinent History Primary Care Physician: [id number] - Allergy/Home Medications Allergies/Adverse Reactions: Allergies Allergy/AdvReac Type Severity Reaction Status Date / Time morphine Allergy Rash Verified 05/07/17 17:33 oxycodone Allergy Itching Verified 05/07/17 17:33 Home Medications: Home Medications Capecitabine (NF) [Xeloda (NF)] 2,000 mg PO DAILY 05/07/17 [History Confirmed ] Dronabinol CAP* [Marinol CAP*] 2.5 mg PO TID AC 05/07/17 [History Confirmed ] Hyoscyamine TAB* [Anaspaz 0.125 MG TAB*] 0.125 mg PO BID PRN 05/07/17 [History Confirmed 05/07/17] PMH/Surg Hx/FS Hx/Imm Hx Endocrine/Hematology History: Reports: Hx Diabetes - type 2, Hx Anemia - hx of Cardiovascular History: Denies: Hx Hypertension, Hx Pacemaker/ICD GI History: Reports: Other GI Disorders - COLON CANCER History: Denies: Hx Dialysis, Hx Renal Disease Sensory History: Reports: Hx Contacts or Glasses Denies: Hx Deafness, Hx Hearing Aid Opthamlomology History: Reports: Hx Contacts or Glasses Psychiatric History: Denies: Hx Panic Disorder - Cancer History Cancer Type, Location and Year: new dx colon cancer 07/2016 Hx Chemotherapy: No Hx Radiation Therapy: No - Surgical History Surgery Procedure, Year, and Place: both ovaries removed ~1996 and 2000, bowel resection Hx Anesthesia Reactions: No Infectious Disease History: No Infectious Disease History: Denies: Traveled Outside the [place] in Last 30 Days - Family History Known Family History: Positive: Other - Yes- Breast CA (sister) - Social History Alcohol Use: None Hx Substance Use: No Substance Use Type: Reports: None Hx Tobacco Use: No Smoking Status (MU): Never Smoked Tobacco Review of Systems Positive: Fever Negative: Cough Negative: Abdominal Pain All Other Systems Reviewed And Are Negative: Yes Physical Exam - Summary Physical Exam Summary: VITAL SIGNS: Reviewed. GENERAL: ~Patient is a well-developed and nourished female who is lying comfortable in the stretcher. Patient is not in any acute respiratory distress. HEAD AND FACE: No signs of trauma. No ecchymosis, hematomas or skull depressions. No sinus tenderness. EYES: PERRLA, EOMI x 2, No injected conjunctiva, no nystagmus. EARS: Hearing grossly intact. Ear canals and tympanic membranes are within normal limits. MOUTH: Oropharynx within normal limits. NECK: Supple, trachea is midline, no adenopathy, no JVD, no carotid bruit, no c- spine tenderness, neck with full ROM. CHEST: Symmetric, no tenderness at palpation LUNGS: Clear to auscultation bilaterally. No wheezing or crackles. CVS: Regular rate and rhythm, S1 and S2 present, no murmurs or gallops appreciated. ABDOMEN: Soft, non-tender. No signs of distention. No rebound no guarding, and no masses palpated. Bowel sounds are normal. EXTREMITIES: FROM in all major joints, no edema, no cyanosis or clubbing. NEURO: Alert and oriented x 3. No acute neurological deficits. Speech is normal and follows commands. SKIN: Dry and warm Triage Information Reviewed: Yes Vital Signs On Initial Exam: Initial Vitals Temp Pulse Resp BP Pulse Ox 98.3 F 103 19 147/89 98 05/07/17 17:30 05/07/17 17:30 05/07/17 17:30 05/07/17 17:30 05/07/17 17:30 Vital Signs Reviewed: Yes Diagnostics - Vital Signs Vital Signs Temp Pulse Resp BP Pulse Ox 05/07/17 18:16 99.5 F 97 20 142/99 05/07/17 17:30 98.3 F 103 19 147/89 98 - Laboratory Lab Results: Lab Results 05/07/17 05/07/17 05/07/17 Range/Units 20:12 20:12 20:12 WBC 8.7 (3.5-10.8) 10^3/ul RBC 4.15 (4.0-5.4) 10^6/ul Hgb 11.9 L (12.0-16.0) g/dl Hct 36 (35-47) % MCV 87 (80-97) fL MCH 29 (27-31) pg MCHC 33 (31-36) g/dl RDW 15 (10.5-15) % Plt Count 387 (150-450) 10^3/ul MPV 6.9 L (7.4-10.4) um3 Neut % (Auto) 65.3 (38-83) % Lymph % (Auto) 20.2 L (25-47) % Crawford % (Auto) 11.2 H (0-7) % Eos % (Auto) 1.9 (0-6) % Baso % (Auto) 1.4 (0-2) % Absolute Neuts (auto) 5.7 (1.5-7.7) 10^3/ul Absolute Lymphs (auto) 1.8 (1.0-4.8) 10^3/ul Absolute Monos (auto) 1.0 H (0-0.8) 10^3/ul Absolute Eos (auto) 0.2 (0-0.6) 10^3/ul Absolute Basos (auto) 0.1 (0-0.2) 10^3/ul Absolute Nucleated RBC 0 10^3/ul Nucleated RBC % 0 INR (Anticoag Therapy) 1.02 (0.77-1.02) APTT 31.7 (26.0-36.3) seconds Sodium 134 (133-145) mmol/L Potassium 3.4 L (3.5-5.0) mmol/L Chloride 98 L (101-111) mmol/L Carbon Dioxide 27 (22-32) mmol/L Anion Gap 9 (2-11) mmol/L BUN 9 (6-24) mg/dL Creatinine 0.57 (0.51-0.95) mg/dL Est GFR ( Amer) 145.0 (>60) Est GFR (Non-Af Amer) 112.7 (>60) BUN/Creatinine Ratio 15.8 (8-20) Glucose 150 H (70-100) mg/dL Lactic Acid (0.5-2.0) mmol/L Calcium 9.4 (8.6-10.3) mg/dL Total Bilirubin 0.60 (0.2-1.0) mg/dL AST 26 (13-39) U/L ALT 20 (7-52) U/L Alkaline Phosphatase 238 H (34-104) U/L C-Reactive Protein 198.93 H (< 5.00) mg/L Total Protein 7.4 (6.4-8.9) g/dL Albumin 3.6 (3.2-5.2) g/dL Globulin 3.8 (2-4) g/dL Albumin/Globulin Ratio 0.9 L (1-3) Urine Color Urine Appearance Urine pH (5-9) Ur Specific [place] (1.010-1.030) Urine Protein (Negative) Urine Ketones (Negative) Urine Blood (Negative) Urine Nitrate (Negative) Urine Bilirubin (Negative) Urine Urobilinogen (Negative) Ur Leukocyte Esterase (Negative) Urine Glucose (Negative) Urine Ascorbic Acid (Negative) Influenza A (Rapid) (Negative) Influenza B (Rapid) (Negative) 05/07/17 05/07/17 05/07/17 Range/Units 20:12 20:56 21:30 WBC (3.5-10.8) 10^3/ul RBC (4.0-5.4) 10^6/ul Hgb (12.0-16.0) g/dl Hct (35-47) % MCV (80-97) fL MCH (27-31) pg MCHC (31-36) g/dl RDW (10.5-15) % Plt Count (150-450) 10^3/ul MPV (7.4-10.4) um3 Neut % (Auto) (38-83) % Lymph % (Auto) (25-47) % Crawford % (Auto) (0-7) % Eos % (Auto) (0-6) % Baso % (Auto) (0-2) % Absolute Neuts (auto) (1.5-7.7) 10^3/ul Absolute Lymphs (auto) (1.0-4.8) 10^3/ul Absolute Monos (auto) (0-0.8) 10^3/ul Absolute Eos (auto) (0-0.6) 10^3/ul Absolute Basos (auto) (0-0.2) 10^3/ul Absolute Nucleated RBC 10^3/ul Nucleated RBC % INR (Anticoag Therapy) (0.77-1.02) APTT (26.0-36.3) seconds Sodium (133-145) mmol/L Potassium (3.5-5.0) mmol/L Chloride (101-111) mmol/L Carbon Dioxide (22-32) mmol/L Anion Gap (2-11) mmol/L BUN (6-24) mg/dL Creatinine (0.51-0.95) mg/dL Est GFR ( Amer) (>60) Est GFR (Non-Af Amer) (>60) BUN/Creatinine Ratio (8-20) Glucose (70-100) mg/dL Lactic Acid 1.1 (0.5-2.0) mmol/L Calcium (8.6-10.3) mg/dL Total Bilirubin (0.2-1.0) mg/dL AST (13-39) U/L ALT (7-52) U/L Alkaline Phosphatase (34-104) U/L C-Reactive Protein (< 5.00) mg/L Total Protein (6.4-8.9) g/dL Albumin (3.2-5.2) g/dL Globulin (2-4) g/dL Albumin/Globulin Ratio (1-3) Urine Color Yellow Urine Appearance Cloudy Urine pH 5.0 (5-9) Ur Specific [place] 1.023 (1.010-1.030) Urine Protein Negative (Negative) Urine Ketones Negative (Negative) Urine Blood Negative (Negative) Urine Nitrate Negative (Negative) Urine Bilirubin Negative (Negative) Urine Urobilinogen Positive A (Negative) Ur Leukocyte Esterase Negative (Negative) Urine Glucose Negative (Negative) Urine Ascorbic Acid * A (Negative) Influenza A (Rapid) Negative (Negative) Influenza B (Rapid) Negative (Negative) Result Diagrams: 05/07/17 20:12 05/07/17 20:12 Lab Statement: Any lab studies that have been ordered have been reviewed, and results considered in the medical decision making process. - Radiology CXR Xray Interpretation: No Acute Changes - LINES AND TUBES ABOVE. NO ACTIVE CARDIOPULMONARY DISEASE. ED physician reviewed this radiology report. Radiology Interpretation Completed By: Radiologist Re-Evaluation - Re-Evaluation First Eval Re-Evaluation Time: 22:00 Change: Improved Comment: Discussed results with the pt and plan to D/C. Course/Dx - Course Assessment/Plan: Pt is a 47 y/o F who is being treated for metastatic colon CA at [facility] in [place], [place] who presents to ED with a CC of fever which has been intermittent since Friday (2 days ago), with the maximum temperature being 101.8.Denies any other symptoms including cough and abdominal pain. She was referred to [facility] [place] [place] ED by her PCP who wanted to make sure she is not neutropenic. WBC of 8.7. Influenza A and B and UA were negative. CXR reveals no acute findings. In the ED course, pt received Tylenol. Pt will be D/C to home with Dx of fever with a followup with her PCP. She understands and agrees. Allergies noted. - Diagnoses Provider Diagnoses: Fever Discharge - Sign-Out/Discharge Documenting (check all that apply): Discharge - Discharge Plan Condition: Stable Disposition: HOME Patient Education Materials: Fever in Adults (ED) Referrals: María Perkins MD [Primary Care Provider] - 3 Days Additional Instructions: You were found to have a normal white blood cell count and a blood culture was done. RETURN TO EMERGENCY DEPARTMENT FOR ANY NEW OR WORSENING SYMPTOMS The documentation as recorded by the Jesse kwong Rebecca accurately reflects the service I personally performed and the decisions made by me, Brent Amezquita MD.
== END 2017-05-07 22:27 | disposition home or self-care (01) ==
LOC: ED 17:14
DX: R50.9 Fever, unspecified (principal); C18.9 Malignant neoplasm of colon, unspecified; Z88.5 Allergy status to narcotic agent; E11.9 Type 2 diabetes mellitus without complications; D64.9 Anemia, unspecified
CPT/HCPCS: 36415; 71045; 80053; 81003; 83605; 85025; 85610; 85730; 86140; 87040; 87502; 99283; A9270-GY